=== PATIENT | female | born 1955 | race Caucasian/White ===

== ENCOUNTER 2018-03-05 20:28 | Inpatient (IN) | payer MEDICARE, MEDICAID ==
--- NOTE | 2018-03-05 20:56 | ED Physician Chart ---
ED Chief Complaint/HPI - Patient Information Date Seen:: 03/05/18 Time Seen:: 20:52 Chief Complaint:: agitation History of Present Illness:: 62 yr old female with psych disorder with agitation Allergies:: Allergies Allergy/AdvReac Type Severity Reaction Status Date / Time fluphenazine [From Prolixin] Allergy Verified 03/05/18 20:40 thioridazine [From Mellaril] Allergy Verified 03/05/18 20:40 trifluoperazine Allergy Verified 03/05/18 20:40 [From Stelazine] Vitals:: Vital Signs - 8 hr 03/05/18 20:30 Temp 97.8 F HR 76 RR 18 BP 156/91 O2 Sat % 97 ED Review of Systems - Review of Systems General/Constitutional: No fever, No chills, No weight loss, No weakness, No diaphoresis, No edema, No loss of appetite Skin: No skin lesions, No rash, No bruising Head: No headache, No light-headedness Eyes: No loss of vision, No pain, No diplopia ENT: No earache, No nasal drainage, No sore throat, No tinnitus Neck: No neck pain, No swelling, No thyromegaly, No stiffness, No mass noted Cardio Vascular: No chest pain, No palpitations, No PND, No orthopnea, No edema Pulmonary: No SOB, No cough, No sputum, No wheezing GI: No nausea, No vomiting, No diarrhea, No pain, No melena, No hematochezia, No constipation, No hematemesis G/U: No dysuria, No frequency, No hematuria Musculoskeletal: No bone or joint pain, No back pain, No muscle pain Endocrine: No polyuria, No polydipsia Psychiatric: No prior psych history, No depression, No anxiety, No suicidal ideation Hematopoietic: No bruising, No lymphadenopathy Allergic/Immuno: No urticaria, No angioedema Neurological: No syncope, No focal symptoms, No weakness, No paresthesia, No headache, No seizure, No dizziness, No confusion, No vertigo ED Past Medical History - Past Medical History Past Medical History: Other (psychosis) ED Physical Exam - Physical Examination General/Constitutional: Awake, Well-developed, well-nourished, Alert, No distress, GCS 15, Non-toxic appearing, Ambulatory Head: Atraumatic Eyes: Lids, conjuctiva normal, PERRL, EOMI Skin: Nl inspection, No rash, No skin lesions, No ecchymosis, Well hydrated, No lymphadenopathy ENMT: External ears, nose nl, Nasal exam nl, Lips, teeth, gums nl Neck: Nontender, Full ROM w/o pain, No JVD, No nuchal rigidity, No bruit, No mass, No stridor Respiratory: Nl effort/Exclusion, Clear to Auscultation, No Wheeze/Rhonchi/Rales Cardio Vascular: RRR, No murmur, gallop, rubs, NL S1 S2 GI: No tenderness/rebounding/guarding, No organomegaly, No hernia, Normal BS's, Nondistended, No mass/bruits, No McBurney tenderness : No CVA tenderness Extremities: No tenderness or effusion, Full ROM, normal strength in all extremities, No edema, Normal digits & nails Neuro/Psych: Alert/oriented, DTR's symmetric, Normal sensory exam, Normal motor strength, Judgement/insight normal, Mood normal, Normal gait, No focal deficits Misc: Normal back, No paraspinal tenderness ED Assessment - Assessment General Assessment: agitation ED Septic Shock - . Is Septic Shock (SBP<90, OR Lactate>4 mmol\L) present?: No - <6hrs of presentation: Vital Signs: Vital Signs - 8 hr 03/05/18 20:30 Temp 97.8 F HR 76 RR 18 BP 156/91 O2 Sat % 97 ED Reassessment (Disposition) - Reassessment Reassessment:: psychosis agitation Reassessment Condition:: Unchanged - Diagnosis Diagnosis:: as above - Patient Disposition Discharge/Transfer:: Acute Care w/in this hosp Condition at Disposition:: Stable
[2018-03-05 21:39] LABS: % LYMPHOCYTES 23.4 % (20.0-50.0); % MONOCYTES 8.7 % (2.0-10.0); % NEUTROPHILS 64.9 % (40.0-80.0); EOSINOPHILE ABSOLUTE 0.2 Th/cmm (0.1-0.4); HEMATOCRIT 39.9 % (41.0-60); HEMOGLOBIN 13.4 gm/dL (12-16); LYMPHOCYTE ABSOLUTE 1.8 Th/cmm (1.5-3.0); MEAN CORPUSCULAR HEMOGLOBIN 29.8 pg (27.0-31.0); MEAN CORPUSCULAR HGB CONC 33.5 pg (28.0-36.0); MEAN PLATELET VOLUME 7.2 fl; MONOCYTE ABSOLUTE 0.7 Th/cmm (0.3-1.0); NEUTROPHILE ABSOLUTE 4.9 Th/cmm (1.8-8.0); PLATELET COUNT 336 Th/cmm (150-400); RED BLOOD COUNT 4.49 Mil/cmm (3.80-5.10); RED CELL DISTRIBUTION WIDTH 13.2 % (11.5-20.0); WHITE BLOOD COUNT 7.6 Th/cmm (4.8-10.8)
[2018-03-05 22:01] LABS: ALB/GLOB RATIO 1.2 (1.0-1.8); ALBUMIN 3.9 gm/dL (3.7-5.3); ALKALINE PHOSPHATASE 71 U/L (34-104); ANION GAP 12.3 (7.0-16.0); BILIRUBIN,TOTAL 0.2 mg/dL (0.3-1.0); BUN - UREA NITROGEN 10 mg/dL (7-25); CALCIUM SERUM 9.7 mg/dL (8.6-10.3); CARBON DIOXIDE 27.7 mEq/L (21.0-31.0); CHLORIDE 104 mEq/L (98-107); CREATININE - SERUM 0.5 mg/dL (0.6-1.2); GFR AFRICAN-AMERICAN > 60.0 ml/min (>90); GFR NON AFRICAN-AMERICAN > 60.0 ml/min; GLUCOSE 151 mg/dL (70-105); SGOT 22 U/L (13-39); SGPT/ALT 32 U/L (7-52); SODIUM SERUM 140 mEq/L (136-145); TOTAL PROTEIN,SERUM 7.1 gm/dL (6.0-8.3)
[2018-03-06] MEDS ORDERED: Magnesium Hydroxide (MOM) 30 mL UDC PO PRN ×2 (00:04→18:05)
[2018-03-06 00:42] LABS: CHOLESTEROL 200 mg/dL (<200); HDL -HIGH DENSITY LIPOPROTEIN 43 mg/dL (23-92); TRIGLYCERIDES 220 mg/dL (<150)
[2018-03-06 01:19] VITALS: BP 135/68
[2018-03-06] MEDS: Multivitamin w/ Minerals Tab PO SCH (09:26)
--- NOTE | 2018-03-06 16:32 | History & Physical ---
ADMIT DATE: 03/05/2018 IDENTIFYING INFORMATION: The patient is a 62-year-old female. CHIEF COMPLAINT: The patient was rambling, poor historian. HISTORY OF PRESENT ILLNESS: The patient was admitted because of agitation. She was sent from [email or web address]. This is a well-known case to me as she used to be at [facility]. The patient was not making sense, talking about having a pair. When I asked where she is living now, she could not tell me, could not tell me the date, where she is, why she is here; however, she reports that she sleeps well and eats well, unable to tell date of . She believes she is 61 years of age and that she has been and that she has children. Does not know how many. Does not see them. She was talking nonstop. PAST PSYCHIATRIC HISTORY: She had multiple prior hospitalizations. ____ twice when she was in [place]. She was at [facility]. The patient insisted with aggressive and agitated behavior. MEDICATIONS: The patient has been on Depakote and olanzapine. MEDICAL HISTORY: THE PATIENT IS ALLERGIC TO FLUPHENAZINE, ____ and TRIFLUOPERAZINE. I will defer the rest to the medical doctor. FAMILY AND SOCIAL HISTORY: The patient reports that she is and that she has 4 kids, does not see them, does not know where they are. She did not know sure why she is in this place or why she does not see her children. She says she has a 10th grade education. She could not tell me what she did for living. No information regarding past psychotic disorder. Denies substance abuse. MENTAL STATUS EXAMINATION: The patient is appropriately dressed, not very groomed. She was talking. She was hyperverbal and very intrusive, kept talking to me and not make sense and is unable to answer questions appropriately. Unable to tell me her date of or the date of today, does not know where she is, why she is here. She denies any auditory or visual hallucinations. She denies any intent to harm herself or anybody; however, she is unpredictable and impulsive. Long-term memory is poor. She is not sure of her date of . Short-term memory is poor. Cannot tell me why she is here. Her insight and judgment about her illness is poor, does not realize she has a problem. Judgment is poor with her behavior. IMPRESSION: Schizoaffective disorder. MEDICAL DIAGNOSES: Per medical doctor. PLAN: The patient will continue on her medication olanzapine and Depakote. We will do group therapy, milieu therapy, and individual therapy. ESTIMATED LENGTH OF STAY: 3-7 days. DISCHARGE CRITERIA: Decreased psychosis, agitation. After discharge, outpatient. JOB# [id number]
--- NOTE | 2018-03-06 19:49 | History & Physical ---
ADMIT DATE: 03/05/2018 HISTORY OF PRESENT ILLNESS: The patient is a 62-year-old female with long history of dementia, psychosis, and degenerative joint disease; admitted to [facility] for treatment. The patient admitted under Dr. Ni's service. The patient denies any chest pain, shortness of breath, nausea, vomiting, fever, or chills. PAST MEDICAL HISTORY: Significant for dementia, psychosis, and degenerative joint disease. PAST SURGICAL HISTORY: No recent surgery. MEDICATIONS: Follow admission reconciliation. SOCIAL HISTORY: No smoking, no drugs, no alcohol. FAMILY HISTORY: Noncontributory. ALLERGIES: To FLUPHENAZINE, THIORIDAZINE, and TRIFLUOPERAZINE. REVIEW OF SYSTEMS: RENAL SYSTEM: No history of chronic renal disorder. CARDIOVASCULAR SYSTEM: No coronary artery disease. ENDOCRINE SYSTEM: No diabetes or thyroid problem. GASTROINTESTINAL SYSTEM: No upper or lower gastrointestinal bleed. NEUROLOGICAL SYSTEM: Seizure disorder. MUSCULOSKELETAL SYSTEM: No muscular dystrophy. HEMATOLOGIC: No bleeding tendencies. RESPIRATORY: No asthma. GENITOURINARY: No dysuria or hematuria. PHYSICAL EXAMINATION: GENERAL: She is awake, alert, not fully oriented, not in distress. VITAL SIGNS: Temperature 97.9, heart rate 68, and blood pressure 137/67. HEENT: Normocephalic. Pupils reactive to light and accommodation. Sclerae clear. NECK: Supple. Negative for lymphadenopathy, JVD, or bruit. CHEST: Entry of air bilateral normal. No rhonchi or wheezing. HEART: S1, S2 normal. No gallop rhythm. ABDOMEN: Soft, bowel sounds positive. EXTREMITIES: No edema. NEUROLOGIC: Awake, alert, mildly confused. No focal motor deficit. LABORATORY DATA: His white blood 7.6, hemoglobin 13.4, hematocrit 39.9, and platelets 336. Sodium 140, potassium 4.0, BUN 10, and creatinine 0.5. Triglycerides 220. ASSESSMENT: 1. Hyperlipidemia. 2. Degenerative joint disease. 3. Dementia. 4. Psychosis. PLAN: The patient admitted to the hospital under Dr. Ni's service. Medical problem addressed during this hospitalization is psychosis. Problems to be addressed at discharge, hyperlipidemia and degenerative joint disease. The patient is medically stable for activity. Thank you Dr. Ni for asking me to see your patient. JOB# [id number]
[2018-03-06] MEDS ORDERED: Non-Formulary Item 1 EA (Melatonin [Melatonin] 3 MG) PO SCH (21:00)
[2018-03-06 23:22] LABS: URINE SOURCE CLEAN C
[2018-03-06 23:25] LABS: URINE BILIRUBIN NEGATIVE (NEGATIVE); URINE BLOOD NEGATIVE (NEGATIVE); URINE GLUCOSE (UA) NEGATIVE (NEGATIVE); URINE KETONE NEGATIVE (NEGATIVE); URINE LEUKOCYTE ESTERASE NEGATIVE (NEGATIVE); URINE NITRATE NEGATIVE (NEGATIVE); URINE PROTEIN NEGATIVE (NEGATIVE); URINE UROBILINOGEN 0.2 E.U./dL (0.2 - 1.0)
[2018-03-07 00:13] LABS: URINE CLARITY CLEAR (CLEAR); URINE COLOR YELLOW
[2018-03-07 00:14] LABS: URINE MICROSCOPIC INDICATED? YES
[2018-03-07 00:15] LABS: URINE BACTERIA FEW /hpf (NONE SEEN); URINE EPITHELIAL CELLS FEW /lpf (FEW); URINE RBC NONE SEEN /hpf (0-5); URINE WBC 0-2 /hpf (0-5)
[2018-03-07 06:17] LABS: AMPHETAMINE URINE NEGATIVE (NEGATIVE); BARBITURATES URINE NEGATIVE (NEGATIVE); BENZODIAZEPINES QUAL URINE NEGATIVE (NEGATIVE); CANNABINOID THC NEGATIVE (NEGATIVE); COCAINE METABOLITE QUAL URINE NEGATIVE (NEGATIVE); METHADONE URINE NEGATIVE (NEGATIVE); METHAMPHETAMINES QUAL URINE NEGATIVE (NEGATIVE); OPIATES (MORPHINE) QUAL. URINE NEGATIVE (NEGATIVE); PHENCYCLIDINE (PCP) URINE NEGATIVE (NEGATIVE); TRICYCLICS (TCA) QUAL. URINE NEGATIVE (NEGATIVE)
[2018-03-07] MEDS: Multivitamin w/ Minerals Tab PO SCH (08:58)
--- NOTE | 2018-03-07 21:25 | Progress Notes ---
DATE: 03/07/2018 Case was discussed with staff of the patient, reviewed records. The patient continues to be agitated, hyperverbal, intrusive, and needing redirection. She wants me today to be her payee, talking nonstop. Continues to be unpredictable, impulsive, needing redirection. Continues to have poor insight, does not know where she came from and why she is here. She is compliant with the medication with no side effects, no sedation, no nausea, and no extrapyramidal symptoms. She was initiated back on her medication yesterday, with no side effects. We will continue the patient in group therapy, milieu therapy, and adjust medication as needed. JOB# [id number]
--- NOTE | 2018-03-07 22:54 | Internal Medicine Prog Note ---
Internal Medicine Subjective - Subjective Service Date: 03/07/18 Patient seen and examined:: with staff Patient is:: awake, verbal, in bed, talking Per staff patient has:: no adverse event Internal Medicine Objective - Results Result Diagrams: 03/05/18 21:30 03/05/18 21:30 Recent Labs: Laboratory Last Values WBC 7.6 Th/cmm (4.8-10.8) 03/05/18 21:30 RBC 4.49 Mil/cmm (3.80-5.10) 03/05/18 21:30 Hgb 13.4 gm/dL (12-16) 03/05/18 21:30 Hct 39.9 % (41.0-60) L 03/05/18 21: MCV 89.0 fl (81-100) 03/05/18 21:30 MCH 29.8 pg (27.0-31.0) 03/05/18: MCHC Differential 33.5 pg (28.0-36.0) 03/05/18 21:30 RDW 13.2 % (11.5-20.0) 03/05/18 21:30 Plt Count 336 Th/cmm (150-400) 03/05/18 21:30 MPV 7.2 fl 03/05/18 21:30 Neutrophils % 64.9 % (40.0-80.0) 03/05/18 21:30 Lymphocytes % 23.4 % (20.0-50.0) 03/05/18 21: Monocytes % 8.7 % (2.0-10.0) 03/05/18 21: Eosinophils % 3.0 % (0.0-5.0) 03/05/18 21: Basophils % 0.0 % (0.0-2.0) 03/05/18 21:30 Sodium 140 mEq/L (136-145) 03/05/18 21:30 Potassium 4.0 mEq/L (3.5-5.1) 03/05/18 21:30 Chloride 104 mEq/L (98-107) 03/05/18 21:30 Carbon Dioxide 27.7 mEq/L (21.0-31.0) 03/05/18 21:30 Anion Gap 12.3 (7.0-16.0) 03/05/18 21:30 BUN 10 mg/dL (7-25) 03/05/18 21:30 Creatinine 0.5 mg/dL (0.6-1.2) L 03/05/18 21:30 Est GFR ( Amer) > 60.0 ml/min (>90) 03/05/18 21:30 Est GFR (Non-Af Amer) > 60.0 ml/min 03/05/18 21:30 BUN/Creatinine Ratio 20.0 03/05/18 21:30 Glucose 151 mg/dL (70-105) H 03/05/18 21:30 Calcium 9.7 mg/dL (8.6-10.3) 03/05/18 21:30 Total Bilirubin 0.2 mg/dL (0.3-1.0) L 03/05/18 21:30 AST 22 U/L (13-39) 03/05/18 21:30 ALT 32 U/L (7-52) 03/05/18 21:30 Alkaline Phosphatase 71 U/L (34-104) 03/05/18 21:30 Total Protein 7.1 gm/dL (6.0-8.3) 03/05/18 21:30 Albumin 3.9 gm/dL (3.7-5.3) 03/05/18 21:30 Globulin 3.2 gm/dL 03/05/18 21:30 Albumin/Globulin Ratio 1.2 (1.0-1.8) 03/05/18 21:30 Triglycerides 220 mg/dL (<150) H 03/06/18 00:00 Cholesterol 200 mg/dL (<200) 03/06/18 00:00 LDL Cholesterol Direct 141 mg/dL (75-193) 03/06/18 00:00 HDL Cholesterol 43 mg/dL (23-92) 03/06/18 00:00 Urine Source CLEAN C 03/06/18 23:15 Urine Color YELLOW 03/06/18 23:15 Urine Clarity CLEAR (CLEAR) 03/06/18 23:15 Urine pH 7.0 (4.6 - 8.0) 03/06/18 23:15 Ur Specific [place] 1.010 (1.005-1.030) 03/06/18 23:15 Urine Protein NEGATIVE mg/dL (NEGATIVE) 03/06/18 23:15 Urine Glucose (UA) NEGATIVE mg/dL (NEGATIVE) 03/06/18 23:15 Urine Ketones NEGATIVE mg/dL (NEGATIVE) 03/06/18 23:15 Urine Blood NEGATIVE (NEGATIVE) 03/06/18 23:15 Urine Nitrate NEGATIVE (NEGATIVE) 03/06/18 23:15 Urine Bilirubin NEGATIVE (NEGATIVE) 03/06/18 23:15 Urine Urobilinogen 0.2 E.U./dL (0.2 - 1.0) 03/06/18 23:15 Ur Leukocyte Esterase NEGATIVE (NEGATIVE) 03/06/18 23:15 Urine RBC NONE SEEN /hpf (0-5) 03/06/18 23:15 Urine WBC 0-2 /hpf (0-5) 03/06/18 23:15 Ur Epithelial Cells FEW /lpf (FEW) 03/06/18 23:15 Urine Bacteria FEW /hpf (NONE SEEN) 03/06/18 23:15 Urine Opiates Screen NEGATIVE (NEGATIVE) 03/06/18 23:15 Urine Methadone Screen NEGATIVE (NEGATIVE) 03/06/18 23:15 Ur Barbiturates Screen NEGATIVE (NEGATIVE) 03/06/18 23:15 Ur Tricyclics Screen NEGATIVE (NEGATIVE) 03/06/18 23:15 Ur Phencyclidine Scrn NEGATIVE (NEGATIVE) 03/06/18 23:15 Amphetamines Screen NEGATIVE (NEGATIVE) 03/06/18 23:15 U Methamphetamines Scrn NEGATIVE (NEGATIVE) 03/06/18 23:15 U Benzodiazepines Scrn NEGATIVE (NEGATIVE) 03/06/18 23:15 U Cocaine Metab Screen NEGATIVE (NEGATIVE) 03/06/18 23:15 U Cannabinoids Screen NEGATIVE (NEGATIVE) 03/06/18 23:15 - Physical Exam Vitals and I&O: Vital Signs Temp 97.1 F 03/07/18 20:31 Pulse 82 03/07/18 20:31 Resp 20 03/07/18 20:31 BP 133/68 03/07/18 20:31 Pulse Ox 96 03/07/18 20:31 Intake & Output 03/07/18 03/07/18 03/08/18 06:59 18:59 06:59 Intake Total 120 180 Balance 120 180 Intake: Oral 120 180 Other: # Voids 3 2 # Bowel Movements 2 0 Active Medications: Current Medications Acetaminophen (Tylenol) 650 mg PO Q4HR PRN PRN Reason: Mild Pain / Temp above 100 Stop: 05/05/18 00:03 Acetaminophen (Tylenol) 650 mg PO Q4HR PRN PRN Reason: Pain or Fever >101 Stop: 05/05/18 18:04 Divalproex Sodium (Depakote Dr) 250 mg PO BID [facility]; Protocol Stop: 05/05/18 08:59 Last Admin: 03/07/18 17:08 Dose: 250 mg Docusate Sodium (Colace) 250 mg PO DAILY KATINA Stop: 05/05/18 08:59 Last Admin: 03/07/18 08:57 Dose: 250 mg Lorazepam (Ativan) 0.5 mg PO Q6HR PRN; Protocol PRN Reason: Anxiety Stop: 04/04/18 23:29 Magnesium Hydroxide (Milk Of Magnesia) 30 ml PO HS PRN PRN Reason: Constipation Magnesium Hydroxide (Milk Of Magnesia) 30 ml PO HS PRN PRN Reason: Constipation Stop: 05/05/18 18:04 Miscellaneous (Melatonin [Melatonin]) 3 mg PO HS KATINA Stop: 05/05/18 20:59 Olanzapine (Zyprexa) 5 mg PO BID [facility]; Protocol Stop: 05/05/18 08:59 Last Admin: 03/07/18 17:08 Dose: 5 mg Zolpidem Tartrate (Ambien) 5 mg PO HS PRN PRN Reason: Insomnia Stop: 05/05/18 00:03 General: demented HEENT: NC/AT, PERRLA, EOMI, anicteric sclerae, throat clear Neck: Supple, No JVD, No thyromegaly, +2 carotid pulse wo bruit, No LAD Lungs: CTAB Cardiovascular: RRR, Normal S1, Normal S2, without murmur Abdomen: soft, non-tender, non-distended Extremities: clear Neurological: no change Internal Medicine Assmt/Plan - Assessment Assessment: 1.HYPERLIPIDEMIA. 2.DJD. 3.DEMENTIA. 4.PSYCHOSIS. - Plan Plan: CONTINUE ON CURRENT MEDICATION AND DIET.
[2018-03-08] MEDS: Multivitamin w/ Minerals Tab PO SCH (08:30)
--- NOTE | 2018-03-08 18:28 | Internal Medicine Prog Note ---
Internal Medicine Subjective - Subjective Service Date: 03/08/18 Patient seen and examined:: with staff Patient is:: awake, verbal, in bed, talking Per staff patient has:: no adverse event Internal Medicine Objective - Results Result Diagrams: 03/05/18 21:30 03/05/18 21:30 Recent Labs: Laboratory Last Values WBC 7.6 Th/cmm (4.8-10.8) 03/05/18 21:30 RBC 4.49 Mil/cmm (3.80-5.10) 03/05/18 21:30 Hgb 13.4 gm/dL (12-16) 03/05/18 21:30 Hct 39.9 % (41.0-60) L 03/05/18 21: MCV 89.0 fl (81-100) 03/05/18 21:30 MCH 29.8 pg (27.0-31.0) 03/05/18: MCHC Differential 33.5 pg (28.0-36.0) 03/05/18 21:30 RDW 13.2 % (11.5-20.0) 03/05/18 21:30 Plt Count 336 Th/cmm (150-400) 03/05/18 21:30 MPV 7.2 fl 03/05/18 21:30 Neutrophils % 64.9 % (40.0-80.0) 03/05/18 21:30 Lymphocytes % 23.4 % (20.0-50.0) 03/05/18 21: Monocytes % 8.7 % (2.0-10.0) 03/05/18 21: Eosinophils % 3.0 % (0.0-5.0) 03/05/18 21: Basophils % 0.0 % (0.0-2.0) 03/05/18 21:30 Sodium 140 mEq/L (136-145) 03/05/18 21:30 Potassium 4.0 mEq/L (3.5-5.1) 03/05/18 21:30 Chloride 104 mEq/L (98-107) 03/05/18 21:30 Carbon Dioxide 27.7 mEq/L (21.0-31.0) 03/05/18 21: Anion Gap 12.3 (7.0-16.0) 03/05/18 21:30 BUN 10 mg/dL (7-25) 03/05/18 21:30 Creatinine 0.5 mg/dL (0.6-1.2) L 03/05/18 21:30 Est GFR ( Amer) > 60.0 ml/min (>90) 03/05/18 21:30 Est GFR (Non-Af Amer) > 60.0 ml/min 03/05/18 21:30 BUN/Creatinine Ratio 20.0 03/05/18 21:30 Glucose 151 mg/dL (70-105) H 03/05/18 21:30 Calcium 9.7 mg/dL (8.6-10.3) 03/05/18 21:30 Total Bilirubin 0.2 mg/dL (0.3-1.0) L 03/05/18 21:30 AST 22 U/L (13-39) 03/05/18 21:30 ALT 32 U/L (7-52) 03/05/18 21:30 Alkaline Phosphatase 71 U/L (34-104) 03/05/18 21:30 Total Protein 7.1 gm/dL (6.0-8.3) 03/05/18 21:30 Albumin 3.9 gm/dL (3.7-5.3) 03/05/18 21:30 Globulin 3.2 gm/dL 03/05/18 21:30 Albumin/Globulin Ratio 1.2 (1.0-1.8) 03/05/18 21:30 Triglycerides 220 mg/dL (<150) H 03/06/18 00:00 Cholesterol 200 mg/dL (<200) 03/06/18 00:00 LDL Cholesterol Direct 141 mg/dL (75-193) 03/06/18 00:00 HDL Cholesterol 43 mg/dL (23-92) 03/06/18 00:00 Urine Source CLEAN C 03/06/18 23:15 Urine Color YELLOW 03/06/18 23:15 Urine Clarity CLEAR (CLEAR) 03/06/18 23:15 Urine pH 7.0 (4.6 - 8.0) 03/06/18 23:15 Ur Specific [place] 1.010 (1.005-1.030) 03/06/18 23:15 Urine Protein NEGATIVE mg/dL (NEGATIVE) 03/06/18 23:15 Urine Glucose (UA) NEGATIVE mg/dL (NEGATIVE) 03/06/18 23:15 Urine Ketones NEGATIVE mg/dL (NEGATIVE) 03/06/18 23:15 Urine Blood NEGATIVE (NEGATIVE) 03/06/18 23:15 Urine Nitrate NEGATIVE (NEGATIVE) 03/06/18 23:15 Urine Bilirubin NEGATIVE (NEGATIVE) 03/06/18 23:15 Urine Urobilinogen 0.2 E.U./dL (0.2 - 1.0) 03/06/18 23:15 Ur Leukocyte Esterase NEGATIVE (NEGATIVE) 03/06/18 23:15 Urine RBC NONE SEEN /hpf (0-5) 03/06/18 23:15 Urine WBC 0-2 /hpf (0-5) 03/06/18 23:15 Ur Epithelial Cells FEW /lpf (FEW) 03/06/18 23:15 Urine Bacteria FEW /hpf (NONE SEEN) 03/06/18 23:15 Urine Opiates Screen NEGATIVE (NEGATIVE) 03/06/18 23:15 Urine Methadone Screen NEGATIVE (NEGATIVE) 03/06/18 23:15 Ur Barbiturates Screen NEGATIVE (NEGATIVE) 03/06/18 23:15 Valproic Acid 35.7 ug/mL (50.0-100.0) L 03/08/18 07:45 Ur Tricyclics Screen NEGATIVE (NEGATIVE) 03/06/18 23:15 Ur Phencyclidine Scrn NEGATIVE (NEGATIVE) 03/06/18 23:15 Amphetamines Screen NEGATIVE (NEGATIVE) 03/06/18 23:15 U Methamphetamines Scrn NEGATIVE (NEGATIVE) 03/06/18 23:15 U Benzodiazepines Scrn NEGATIVE (NEGATIVE) 03/06/18 23:15 U Cocaine Metab Screen NEGATIVE (NEGATIVE) 03/06/18 23:15 U Cannabinoids Screen NEGATIVE (NEGATIVE) 03/06/18 23:15 - Physical Exam Vitals and I&O: Vital Signs Temp 97.9 F 03/08/18 14:00 Pulse 77 03/08/18 14:00 Resp 20 03/08/18 14:00 BP 109/48 03/08/18 14:00 Pulse Ox 98 03/08/18 14:00 Intake & Output 03/07/18 03/08/18 03/08/18 18:59 06:59 18:59 Intake Total 300 800 Balance 300 800 Intake: Oral 300 800 Other: # Voids 3 3 # Bowel Movements 2 0 1 Active Medications: Current Medications Acetaminophen (Tylenol) 650 mg PO Q4HR PRN PRN Reason: Mild Pain / Temp above 100 Stop: 05/05/18 00:03 Acetaminophen (Tylenol) 650 mg PO Q4HR PRN PRN Reason: Pain or Fever >101 Stop: 05/05/18 18:04 Divalproex Sodium (Depakote Dr) 250 mg PO BID [facility]; Protocol Stop: 05/05/18 08:59 Last Admin: 03/08/18 17:12 Dose: 250 mg Docusate Sodium (Colace) 250 mg PO DAILY KATINA Stop: 05/05/18 08:59 Last Admin: 03/08/18 08:29 Dose: 250 mg Lorazepam (Ativan) 0.5 mg PO Q6HR PRN; Protocol PRN Reason: Anxiety Stop: 04/04/18 23:29 Magnesium Hydroxide (Milk Of Magnesia) 30 ml PO HS PRN PRN Reason: Constipation Magnesium Hydroxide (Milk Of Magnesia) 30 ml PO HS PRN PRN Reason: Constipation Stop: 05/05/18 18:04 Olanzapine (Zyprexa) 5 mg PO BID [facility]; Protocol Stop: 05/05/18 08:59 Last Admin: 03/08/18 17:12 Dose: 5 mg Zolpidem Tartrate (Ambien) 5 mg PO HS PRN PRN Reason: Insomnia Stop: 05/05/18 00:03 General: demented HEENT: NC/AT, PERRLA, EOMI, anicteric sclerae, throat clear Neck: Supple, No JVD, No thyromegaly, +2 carotid pulse wo bruit, No LAD Lungs: CTAB Cardiovascular: RRR, Normal S1, Normal S2, without murmur Abdomen: soft, non-tender, non-distended Extremities: clear Neurological: no change Internal Medicine Assmt/Plan - Assessment Assessment: 1.HYPERLIPIDEMIA. 2.DJD. 3.DEMENTIA. 4.PSYCHOSIS. - Plan Plan: CONTINUE ON CURRENT MEDICATION AND DIET.
[2018-03-09] MEDS: Multivitamin w/ Minerals Tab PO SCH (09:40)
--- NOTE | 2018-03-09 12:57 | Internal Medicine Prog Note ---
Internal Medicine Subjective - Subjective Service Date: 03/09/18 Patient seen and examined:: with staff Patient is:: awake, verbal, in bed, talking Per staff patient has:: no adverse event Internal Medicine Objective - Results Result Diagrams: 03/05/18 21:30 03/05/18 21:30 Recent Labs: Laboratory Last Values WBC 7.6 Th/cmm (4.8-10.8) 03/05/18 21:30 RBC 4.49 Mil/cmm (3.80-5.10) 03/05/18 21:30 Hgb 13.4 gm/dL (12-16) 03/05/18 21:30 Hct 39.9 % (41.0-60) L 03/05/18 21: MCV 89.0 fl (81-100) 03/05/18 21:30 MCH 29.8 pg (27.0-31.0) 03/05/18: MCHC Differential 33.5 pg (28.0-36.0) 03/05/18 21:30 RDW 13.2 % (11.5-20.0) 03/05/18 21:30 Plt Count 336 Th/cmm (150-400) 03/05/18 21:30 MPV 7.2 fl 03/05/18 21:30 Neutrophils % 64.9 % (40.0-80.0) 03/05/18 21:30 Lymphocytes % 23.4 % (20.0-50.0) 03/05/18 21: Monocytes % 8.7 % (2.0-10.0) 03/05/18 21: Eosinophils % 3.0 % (0.0-5.0) 03/05/18 21: Basophils % 0.0 % (0.0-2.0) 03/05/18 21:30 Sodium 140 mEq/L (136-145) 03/05/18 21:30 Potassium 4.0 mEq/L (3.5-5.1) 03/05/18 21:30 Chloride 104 mEq/L (98-107) 03/05/18 21:30 Carbon Dioxide 27.7 mEq/L (21.0-31.0) 03/05/18 21: Anion Gap 12.3 (7.0-16.0) 03/05/18 21:30 BUN 10 mg/dL (7-25) 03/05/18 21:30 Creatinine 0.5 mg/dL (0.6-1.2) L 03/05/18 21:30 Est GFR ( Amer) > 60.0 ml/min (>90) 03/05/18 21:30 Est GFR (Non-Af Amer) > 60.0 ml/min 03/05/18 21:30 BUN/Creatinine Ratio 20.0 03/05/18 21:30 Glucose 151 mg/dL (70-105) H 03/05/18 21:30 Calcium 9.7 mg/dL (8.6-10.3) 03/05/18 21:30 Total Bilirubin 0.2 mg/dL (0.3-1.0) L 03/05/18 21:30 AST 22 U/L (13-39) 03/05/18 21:30 ALT 32 U/L (7-52) 03/05/18 21:30 Alkaline Phosphatase 71 U/L (34-104) 03/05/18 21:30 Total Protein 7.1 gm/dL (6.0-8.3) 03/05/18 21:30 Albumin 3.9 gm/dL (3.7-5.3) 03/05/18 21:30 Globulin 3.2 gm/dL 03/05/18 21:30 Albumin/Globulin Ratio 1.2 (1.0-1.8) 03/05/18 21:30 Triglycerides 220 mg/dL (<150) H 03/06/18 00:00 Cholesterol 200 mg/dL (<200) 03/06/18 00:00 LDL Cholesterol Direct 141 mg/dL (75-193) 03/06/18 00:00 HDL Cholesterol 43 mg/dL (23-92) 03/06/18 00:00 Urine Source CLEAN C 03/06/18 23:15 Urine Color YELLOW 03/06/18 23:15 Urine Clarity CLEAR (CLEAR) 03/06/18 23:15 Urine pH 7.0 (4.6 - 8.0) 03/06/18 23:15 Ur Specific [place] 1.010 (1.005-1.030) 03/06/18 23:15 Urine Protein NEGATIVE mg/dL (NEGATIVE) 03/06/18 23:15 Urine Glucose (UA) NEGATIVE mg/dL (NEGATIVE) 03/06/18 23:15 Urine Ketones NEGATIVE mg/dL (NEGATIVE) 03/06/18 23:15 Urine Blood NEGATIVE (NEGATIVE) 03/06/18 23:15 Urine Nitrate NEGATIVE (NEGATIVE) 03/06/18 23:15 Urine Bilirubin NEGATIVE (NEGATIVE) 03/06/18 23:15 Urine Urobilinogen 0.2 E.U./dL (0.2 - 1.0) 03/06/18 23:15 Ur Leukocyte Esterase NEGATIVE (NEGATIVE) 03/06/18 23:15 Urine RBC NONE SEEN /hpf (0-5) 03/06/18 23:15 Urine WBC 0-2 /hpf (0-5) 03/06/18 23:15 Ur Epithelial Cells FEW /lpf (FEW) 03/06/18 23:15 Urine Bacteria FEW /hpf (NONE SEEN) 03/06/18 23:15 Urine Opiates Screen NEGATIVE (NEGATIVE) 03/06/18 23:15 Urine Methadone Screen NEGATIVE (NEGATIVE) 03/06/18 23:15 Ur Barbiturates Screen NEGATIVE (NEGATIVE) 03/06/18 23:15 Valproic Acid 35.7 ug/mL (50.0-100.0) L 03/08/18 07:45 Ur Tricyclics Screen NEGATIVE (NEGATIVE) 03/06/18 23:15 Ur Phencyclidine Scrn NEGATIVE (NEGATIVE) 03/06/18 23:15 Amphetamines Screen NEGATIVE (NEGATIVE) 03/06/18 23:15 U Methamphetamines Scrn NEGATIVE (NEGATIVE) 03/06/18 23:15 U Benzodiazepines Scrn NEGATIVE (NEGATIVE) 03/06/18 23:15 U Cocaine Metab Screen NEGATIVE (NEGATIVE) 03/06/18 23:15 U Cannabinoids Screen NEGATIVE (NEGATIVE) 03/06/18 23:15 - Physical Exam Vitals and I&O: Vital Signs Temp 97.8 F 03/09/18 06:41 Pulse 75 03/09/18 06:41 Resp 20 03/09/18 06:41 BP 147/71 03/09/18 06:41 Pulse Ox 95 03/09/18 06:41 Intake & Output 03/08/18 03/09/18 03/09/18 18:59 06:59 18:59 Intake Total 800 240 Balance 800 240 Intake: Oral 800 240 Other: # Voids 3 1 # Bowel Movements 1 Active Medications: Current Medications Acetaminophen (Tylenol) 650 mg PO Q4HR PRN PRN Reason: Mild Pain / Temp above 100 Stop: 05/05/18 00:03 Acetaminophen (Tylenol) 650 mg PO Q4HR PRN PRN Reason: Pain or Fever >101 Stop: 05/05/18 18:04 Divalproex Sodium (Depakote Dr) 250 mg PO TID [facility]; Protocol Stop: 05/08/18 13:59 Docusate Sodium (Colace) 250 mg PO DAILY KATINA Stop: 05/05/18 08:59 Last Admin: 03/09/18 09:40 Dose: 250 mg Lorazepam (Ativan) 0.5 mg PO Q6HR PRN; Protocol PRN Reason: Anxiety Stop: 04/04/18 23:29 Magnesium Hydroxide (Milk Of Magnesia) 30 ml PO HS PRN PRN Reason: Constipation Magnesium Hydroxide (Milk Of Magnesia) 30 ml PO HS PRN PRN Reason: Constipation Stop: 05/05/18 18:04 Olanzapine (Zyprexa) 5 mg PO BID [facility]; Protocol Stop: 05/05/18 08:59 Last Admin: 03/09/18 09:40 Dose: 5 mg Zolpidem Tartrate (Ambien) 5 mg PO HS PRN PRN Reason: Insomnia Stop: 05/05/18 00:03 General: demented HEENT: NC/AT, PERRLA, EOMI, anicteric sclerae, throat clear Neck: Supple, No JVD, No thyromegaly, +2 carotid pulse wo bruit, No LAD Lungs: CTAB Cardiovascular: RRR, Normal S1, Normal S2, without murmur Abdomen: soft, non-tender, non-distended Extremities: clear Neurological: no change Internal Medicine Assmt/Plan - Assessment Assessment: 1.HYPERLIPIDEMIA. 2.DJD. 3.DEMENTIA. 4.PSYCHOSIS. - Plan Plan: CONTINUE ON CURRENT MEDICATION AND DIET.
--- NOTE | 2018-03-09 22:28 | Progress Notes ---
DATE: 03/08/2018 SUBJECTIVE: Chart reviewed and the patient interviewed. Also discussed the patient's condition with the staff and reviewed the records and labs. The patient is still confused and she is oriented to self only. The patient also is still easily agitated. She is also actively hallucinating and observed talking to herself. The patient also still needs lots of redirections, but she gets easily agitated when staff tries to redirect her and she still is acting unpredictable behavior. On the other hand, the patient is compliant with taking her medications. ASSESSMENT: The patient is still agitated and is still psychotic. TREATMENT PLAN: Continue to monitor her behavior and condition closely. Also, continue Depakote in a dose of 250 mg twice a day as well as Zyprexa in a dose of 5 mg daily. She also will work on placement issue if needed as well as discharge plans. JOB# [id number]
--- NOTE | 2018-03-09 23:52 | Progress Notes ---
DATE: 03/09/2018 Case was discussed with staff of the patient and reviewed records. The patient continues to be very intrusive, continues to be restless, continues to be unable to make safe plan for her self-care, unpredictable and impulsive, needing redirection. I will be increasing her Depakote to 3 a day to help with her hypomanic symptoms. No side effects of the medication, no sedation, nausea, no extrapyramidal symptoms. We will continue outpatient group therapy, milieu therapy, and adjust the medication as needed. JOB# [id number]
[2018-03-10] MEDS: Multivitamin w/ Minerals Tab PO SCH (09:20)
--- NOTE | 2018-03-10 10:16 | Internal Medicine Prog Note ---
Internal Medicine Subjective - Subjective Service Date: 03/10/18 Patient seen and examined:: with staff Patient is:: awake, verbal, in bed, talking Per staff patient has:: no adverse event Internal Medicine Objective - Results Result Diagrams: 03/05/18 21:30 03/05/18 21:30 Recent Labs: Laboratory Last Values WBC 7.6 Th/cmm (4.8-10.8) 03/05/18 21:30 RBC 4.49 Mil/cmm (3.80-5.10) 03/05/18 21:30 Hgb 13.4 gm/dL (12-16) 03/05/18 21:30 Hct 39.9 % (41.0-60) L 03/05/18 21: MCV 89.0 fl (81-100) 03/05/18 21:30 MCH 29.8 pg (27.0-31.0) 03/05/18: MCHC Differential 33.5 pg (28.0-36.0) 03/05/18 21:30 RDW 13.2 % (11.5-20.0) 03/05/18 21:30 Plt Count 336 Th/cmm (150-400) 03/05/18 21:30 MPV 7.2 fl 03/05/18 21:30 Neutrophils % 64.9 % (40.0-80.0) 03/05/18 21:30 Lymphocytes % 23.4 % (20.0-50.0) 03/05/18 21: Monocytes % 8.7 % (2.0-10.0) 03/05/18 21: Eosinophils % 3.0 % (0.0-5.0) 03/05/18 21: Basophils % 0.0 % (0.0-2.0) 03/05/18 21:30 Sodium 140 mEq/L (136-145) 03/05/18 21:30 Potassium 4.0 mEq/L (3.5-5.1) 03/05/18 21:30 Chloride 104 mEq/L (98-107) 03/05/18 21:30 Carbon Dioxide 27.7 mEq/L (21.0-31.0) 03/05/18 21:30 Anion Gap 12.3 (7.0-16.0) 03/05/18 21:30 BUN 10 mg/dL (7-25) 03/05/18 21:30 Creatinine 0.5 mg/dL (0.6-1.2) L 03/05/18 21:30 Est GFR ( Amer) > 60.0 ml/min (>90) 03/05/18 21:30 Est GFR (Non-Af Amer) > 60.0 ml/min 03/05/18 21:30 BUN/Creatinine Ratio 20.0 03/05/18 21:30 Glucose 151 mg/dL (70-105) H 03/05/18 21:30 Calcium 9.7 mg/dL (8.6-10.3) 03/05/18 21:30 Total Bilirubin 0.2 mg/dL (0.3-1.0) L 03/05/18 21:30 AST 22 U/L (13-39) 03/05/18 21:30 ALT 32 U/L (7-52) 03/05/18 21:30 Alkaline Phosphatase 71 U/L (34-104) 03/05/18 21:30 Total Protein 7.1 gm/dL (6.0-8.3) 03/05/18 21:30 Albumin 3.9 gm/dL (3.7-5.3) 03/05/18 21:30 Globulin 3.2 gm/dL 03/05/18 21:30 Albumin/Globulin Ratio 1.2 (1.0-1.8) 03/05/18 21:30 Triglycerides 220 mg/dL (<150) H 03/06/18 00:00 Cholesterol 200 mg/dL (<200) 03/06/18 00:00 LDL Cholesterol Direct 141 mg/dL (75-193) 03/06/18 00:00 HDL Cholesterol 43 mg/dL (23-92) 03/06/18 00:00 Urine Source CLEAN C 03/06/18 23:15 Urine Color YELLOW 03/06/18 23:15 Urine Clarity CLEAR (CLEAR) 03/06/18 23:15 Urine pH 7.0 (4.6 - 8.0) 03/06/18 23:15 Ur Specific [place] 1.010 (1.005-1.030) 03/06/18 23:15 Urine Protein NEGATIVE mg/dL (NEGATIVE) 03/06/18 23:15 Urine Glucose (UA) NEGATIVE mg/dL (NEGATIVE) 03/06/18 23:15 Urine Ketones NEGATIVE mg/dL (NEGATIVE) 03/06/18 23:15 Urine Blood NEGATIVE (NEGATIVE) 03/06/18 23:15 Urine Nitrate NEGATIVE (NEGATIVE) 03/06/18 23:15 Urine Bilirubin NEGATIVE (NEGATIVE) 03/06/18 23:15 Urine Urobilinogen 0.2 E.U./dL (0.2 - 1.0) 03/06/18 23:15 Ur Leukocyte Esterase NEGATIVE (NEGATIVE) 03/06/18 23:15 Urine RBC NONE SEEN /hpf (0-5) 03/06/18 23:15 Urine WBC 0-2 /hpf (0-5) 03/06/18 23:15 Ur Epithelial Cells FEW /lpf (FEW) 03/06/18 23:15 Urine Bacteria FEW /hpf (NONE SEEN) 03/06/18 23:15 Urine Opiates Screen NEGATIVE (NEGATIVE) 03/06/18 23:15 Urine Methadone Screen NEGATIVE (NEGATIVE) 03/06/18 23:15 Ur Barbiturates Screen NEGATIVE (NEGATIVE) 03/06/18 23:15 Valproic Acid 35.7 ug/mL (50.0-100.0) L 03/08/18 07:45 Ur Tricyclics Screen NEGATIVE (NEGATIVE) 03/06/18 23:15 Ur Phencyclidine Scrn NEGATIVE (NEGATIVE) 03/06/18 23:15 Amphetamines Screen NEGATIVE (NEGATIVE) 03/06/18 23:15 U Methamphetamines Scrn NEGATIVE (NEGATIVE) 03/06/18 23:15 U Benzodiazepines Scrn NEGATIVE (NEGATIVE) 03/06/18 23:15 U Cocaine Metab Screen NEGATIVE (NEGATIVE) 03/06/18 23:15 U Cannabinoids Screen NEGATIVE (NEGATIVE) 03/06/18 23:15 - Physical Exam Vitals and I&O: Vital Signs Temp 97.3 F 03/10/18 06:32 Pulse 78 03/10/18 06:32 Resp 20 03/10/18 06:32 BP 159/99 03/10/18 06:32 Pulse Ox 96 03/10/18 06:32 Intake & Output 03/09/18 03/10/18 03/10/18 18:59 06:59 18:59 Intake Total 900 240 Balance 900 240 Intake: Oral 900 240 Other: # Voids 3 3 # Bowel Movements 1 0 Active Medications: Current Medications Acetaminophen (Tylenol) 650 mg PO Q4HR PRN PRN Reason: Mild Pain / Temp above 100 Stop: 05/05/18 00:03 Acetaminophen (Tylenol) 650 mg PO Q4HR PRN PRN Reason: Pain or Fever >101 Stop: 05/05/18 18:04 Divalproex Sodium (Depakote Dr) 500 mg PO BID [facility]; Protocol Stop: 05/09/18 08:59 Last Admin: 03/10/18 09:20 Dose: 500 mg Docusate Sodium (Colace) 250 mg PO DAILY KATINA Stop: 05/05/18 08:59 Last Admin: 03/10/18 09:20 Dose: Not Given Lorazepam (Ativan) 0.5 mg PO Q6HR PRN; Protocol PRN Reason: Anxiety Stop: 04/04/18 23:29 Magnesium Hydroxide (Milk Of Magnesia) 30 ml PO HS PRN PRN Reason: Constipation Magnesium Hydroxide (Milk Of Magnesia) 30 ml PO HS PRN PRN Reason: Constipation Stop: 05/05/18 18:04 Olanzapine (Zyprexa) 5 mg PO BID [facility]; Protocol Stop: 05/05/18 08:59 Last Admin: 03/10/18 09:20 Dose: 5 mg Zolpidem Tartrate (Ambien) 5 mg PO HS PRN PRN Reason: Insomnia Stop: 05/05/18 00:03 General: demented HEENT: NC/AT, PERRLA, EOMI, anicteric sclerae, throat clear Neck: Supple, No JVD, No thyromegaly, +2 carotid pulse wo bruit, No LAD Lungs: CTAB Cardiovascular: RRR, Normal S1, Normal S2, without murmur Abdomen: soft, non-tender, non-distended Extremities: clear Neurological: no change Internal Medicine Assmt/Plan - Assessment Assessment: 1.HYPERLIPIDEMIA. 2.DJD. 3.DEMENTIA. 4.PSYCHOSIS. - Plan Plan: CONTINUE ON CURRENT MEDICATION AND DIET.
--- NOTE | 2018-03-10 22:49 | Progress Notes ---
DATE: SUBJECTIVE: Chart reviewed and the patient interviewed. Also discussed the patient's condition with the staff and reviewed the records and labs. The patient continued to be in a confused state and "I live here" as the answer to my question about where does she live. The patient also still have episodes of irritability, but in general, she seems to be calmer than before. She also is paranoid about what was happening and she is still confused and responding to stimuli. ASSESSMENT: The patient is still confused and psychotic. TREATMENT PLAN: Depakote blood level came back to be 35.7. We will continue Zyprexa 5 mg twice a day, but will increase Depakote to 500 mg twice a day and will continue to follow up closely. [facility]# [id number]
[2018-03-11] MEDS: Multivitamin w/ Minerals Tab PO SCH (09:18)
--- NOTE | 2018-03-11 19:41 | Internal Medicine Prog Note ---
Internal Medicine Subjective - Subjective Service Date: 03/11/18 Patient seen and examined:: with staff Patient is:: awake, verbal, in bed, talking Per staff patient has:: no adverse event Internal Medicine Objective - Results Result Diagrams: 03/05/18 21:30 03/05/18 21:30 Recent Labs: Laboratory Last Values WBC 7.6 Th/cmm (4.8-10.8) 03/05/18 21:30 RBC 4.49 Mil/cmm (3.80-5.10) 03/05/18 21:30 Hgb 13.4 gm/dL (12-16) 03/05/18 21:30 Hct 39.9 % (41.0-60) L 03/05/18 21: MCV 89.0 fl (81-100) 03/05/18 21:30 MCH 29.8 pg (27.0-31.0) 03/05/18: MCHC Differential 33.5 pg (28.0-36.0) 03/05/18 21:30 RDW 13.2 % (11.5-20.0) 03/05/18 21:30 Plt Count 336 Th/cmm (150-400) 03/05/18 21:30 MPV 7.2 fl 03/05/18 21:30 Neutrophils % 64.9 % (40.0-80.0) 03/05/18 21:30 Lymphocytes % 23.4 % (20.0-50.0) 03/05/18 21: Monocytes % 8.7 % (2.0-10.0) 03/05/18 21: Eosinophils % 3.0 % (0.0-5.0) 03/05/18 21:30 Basophils % 0.0 % (0.0-2.0) 03/05/18 21:30 Sodium 140 mEq/L (136-145) 03/05/18 21:30 Potassium 4.0 mEq/L (3.5-5.1) 03/05/18 21:30 Chloride 104 mEq/L (98-107) 03/05/18 21:30 Carbon Dioxide 27.7 mEq/L (21.0-31.0) 03/05/18 21:30 Anion Gap 12.3 (7.0-16.0) 03/05/18 21:30 BUN 10 mg/dL (7-25) 03/05/18 21:30 Creatinine 0.5 mg/dL (0.6-1.2) L 03/05/18 21:30 Est GFR ( Amer) > 60.0 ml/min (>90) 03/05/18 21:30 Est GFR (Non-Af Amer) > 60.0 ml/min 03/05/18 21:30 BUN/Creatinine Ratio 20.0 03/05/18 21:30 Glucose 151 mg/dL (70-105) H 03/05/18 21:30 Calcium 9.7 mg/dL (8.6-10.3) 03/05/18 21:30 Total Bilirubin 0.2 mg/dL (0.3-1.0) L 03/05/18 21:30 AST 22 U/L (13-39) 03/05/18 21:30 ALT 32 U/L (7-52) 03/05/18 21:30 Alkaline Phosphatase 71 U/L (34-104) 03/05/18 21:30 Total Protein 7.1 gm/dL (6.0-8.3) 03/05/18 21:30 Albumin 3.9 gm/dL (3.7-5.3) 03/05/18 21:30 Globulin 3.2 gm/dL 03/05/18 21:30 Albumin/Globulin Ratio 1.2 (1.0-1.8) 03/05/18 21:30 Triglycerides 220 mg/dL (<150) H 03/06/18 00:00 Cholesterol 200 mg/dL (<200) 03/06/18 00:00 LDL Cholesterol Direct 141 mg/dL (75-193) 03/06/18 00:00 HDL Cholesterol 43 mg/dL (23-92) 03/06/18 00:00 Urine Source CLEAN C 03/06/18 23:15 Urine Color YELLOW 03/06/18 23:15 Urine Clarity CLEAR (CLEAR) 03/06/18 23:15 Urine pH 7.0 (4.6 - 8.0) 03/06/18 23:15 Ur Specific [place] 1.010 (1.005-1.030) 03/06/18 23:15 Urine Protein NEGATIVE mg/dL (NEGATIVE) 03/06/18 23:15 Urine Glucose (UA) NEGATIVE mg/dL (NEGATIVE) 03/06/18 23:15 Urine Ketones NEGATIVE mg/dL (NEGATIVE) 03/06/18 23:15 Urine Blood NEGATIVE (NEGATIVE) 03/06/18 23:15 Urine Nitrate NEGATIVE (NEGATIVE) 03/06/18 23:15 Urine Bilirubin NEGATIVE (NEGATIVE) 03/06/18 23:15 Urine Urobilinogen 0.2 E.U./dL (0.2 - 1.0) 03/06/18 23:15 Ur Leukocyte Esterase NEGATIVE (NEGATIVE) 03/06/18 23:15 Urine RBC NONE SEEN /hpf (0-5) 03/06/18 23:15 Urine WBC 0-2 /hpf (0-5) 03/06/18 23:15 Ur Epithelial Cells FEW /lpf (FEW) 03/06/18 23:15 Urine Bacteria FEW /hpf (NONE SEEN) 03/06/18 23:15 Urine Opiates Screen NEGATIVE (NEGATIVE) 03/06/18 23:15 Urine Methadone Screen NEGATIVE (NEGATIVE) 03/06/18 23:15 Ur Barbiturates Screen NEGATIVE (NEGATIVE) 03/06/18 23:15 Valproic Acid 35.7 ug/mL (50.0-100.0) L 03/08/18 07:45 Ur Tricyclics Screen NEGATIVE (NEGATIVE) 03/06/18 23:15 Ur Phencyclidine Scrn NEGATIVE (NEGATIVE) 03/06/18 23:15 Amphetamines Screen NEGATIVE (NEGATIVE) 03/06/18 23:15 U Methamphetamines Scrn NEGATIVE (NEGATIVE) 03/06/18 23:15 U Benzodiazepines Scrn NEGATIVE (NEGATIVE) 03/06/18 23:15 U Cocaine Metab Screen NEGATIVE (NEGATIVE) 03/06/18 23:15 U Cannabinoids Screen NEGATIVE (NEGATIVE) 03/06/18 23:15 - Physical Exam Vitals and I&O: Vital Signs Temp 97.5 F 03/11/18 06:03 Pulse 86 03/11/18 06:03 Resp 20 03/11/18 12:12 BP 127/58 03/11/18 06:03 Pulse Ox 98 03/11/18 06:03 Intake & Output 03/11/18 03/11/18 03/12/18 06:59 18:59 06:59 Intake Total 470 900 Balance 470 900 Intake: Oral 470 900 Other: # Voids 2 3 # Bowel Movements 1 Active Medications: Current Medications Acetaminophen (Tylenol) 650 mg PO Q4HR PRN PRN Reason: Mild Pain / Temp above 100 Stop: 05/05/18 00:03 Acetaminophen (Tylenol) 650 mg PO Q4HR PRN PRN Reason: Pain or Fever >101 Stop: 05/05/18 18:04 Divalproex Sodium (Depakote Dr) 500 mg PO BID [facility]; Protocol Stop: 05/09/18 08:59 Last Admin: 03/11/18 16:59 Dose: 500 mg Docusate Sodium (Colace) 250 mg PO DAILY KATINA Stop: 05/05/18 08:59 Last Admin: 03/11/18 09:18 Dose: 250 mg Lorazepam (Ativan) 0.5 mg PO Q6HR PRN; Protocol PRN Reason: Anxiety Stop: 04/04/18 23:29 Magnesium Hydroxide (Milk Of Magnesia) 30 ml PO HS PRN PRN Reason: Constipation Magnesium Hydroxide (Milk Of Magnesia) 30 ml PO HS PRN PRN Reason: Constipation Stop: 05/05/18 18:04 Olanzapine (Zyprexa) 5 mg PO BID [facility]; Protocol Stop: 05/05/18 08:59 Last Admin: 03/11/18 16:59 Dose: 5 mg Zolpidem Tartrate (Ambien) 5 mg PO HS PRN PRN Reason: Insomnia Stop: 05/05/18 00:03 General: demented HEENT: NC/AT, PERRLA, EOMI, anicteric sclerae, throat clear Neck: Supple, No JVD, No thyromegaly, +2 carotid pulse wo bruit, No LAD Lungs: CTAB Cardiovascular: RRR, Normal S1, Normal S2, without murmur Abdomen: soft, non-tender, non-distended Extremities: clear Neurological: no change Internal Medicine Assmt/Plan - Assessment Assessment: 1.HYPERLIPIDEMIA. 2.DJD. 3.DEMENTIA. 4.PSYCHOSIS. - Plan Plan: CONTINUE ON CURRENT MEDICATION AND DIET. Nutritional Asmnt/Malnutr-PDOC - Dietary Evaluation Malnutrition Findings (Please click <Entered> for more info): Nutritional Asmnt/Malnutrition Start: 03/11/18 14: 39 Text: Status: Complete Freq: Protocol: Document 03/11/18 14:40 RHAQUE (Rec: 03/11/18 14:48 AMA PINEDA) Nutritional Asmnt/Malnutrition Patient General Information Nutritional Screening Low Risk Diagnosis Psychosis & Agitation Pertinent Medical Hx/Surgical Hx Dementia, Psychosis, Degenerative Joint Disease Subjective Information Pt was asleep during visit. The [employer] described her as a motivated eater who consumes around 75% of her PO meals and even asks for snacks in between. They claim they provide her with whatever is available. Current Diet Order/ Nutrition Support Regular Pertinent Medications Docusate, MOM, Ambien Pertinent Labs (03/05) Gluc 151, (03/06) TG 220 , Cholest 200, LDL 141, HDL 43 Nutritional Hx/Data Height 1.5 m Height (Calculated Centimeters) 149.9 Current Weight (lbs) 66.224 kg Weight (Calculated Kilograms) 66.2 Weight (Calculated Grams) 47429.5 Gary Body Weight 95 % Gary Body Weight 154 Body Mass Index (BMI) 29.5 Weight Status Overweight GI Symptoms Last BM 1x (03/09) Cultural/Ethnic/Sikhism Belief None stated Skin Integrity/Comment: Suresh Score: 20. Skin warm, dry and intact (per Nurse's notes) Current %PO Good (75-100%) Estimated Nutritional Goals BEE in Kcals: Adj wt of IBW Calories/Kcals/Kg 20-25 Kcals Calculated 980-1225 Protein: Adj wt of IBW Protein g/k.8-1 Protein Calculated 39-49 Fluid: ml 980-1225 Nutritional Problem 1. Problem Problem Pt has excessive fat intake Etiology due to current diet order Signs/Symptoms: (03/06) TG 220, Cholest 200, LDL 141, HDL 43 Malnutrition Alert Is there a minimum of two criteria No selected? Query Text:Check all the applicable criteria. A minimum of two criteria are recommended for diagnosis of either severe or non-severe malnutrition. Malnutrition Related to Morbid Obesity Malnutrition related to morbid obesity No Intervention/Recommendation Comments Recommend Changing diet order to Cardiac Diet. Suggest ordering a more recent Lipid Panel. Expected Outcomes/Goals Expected Outcomes/Goals - Maintain more than 75% PO intake - Lipid Panel return to WNL - Provide Fat free snacks as requested - F/U in 7 days as LR
[2018-03-12] MEDS: Multivitamin w/ Minerals Tab PO SCH (09:23)
--- NOTE | 2018-03-12 17:19 | Internal Medicine Prog Note ---
Internal Medicine Subjective - Subjective Service Date: 03/12/18 Patient seen and examined:: with staff Patient is:: awake, verbal, in bed, talking Per staff patient has:: no adverse event Internal Medicine Objective - Results Result Diagrams: 03/05/18 21:30 03/05/18 21:30 Recent Labs: Laboratory Last Values WBC 7.6 Th/cmm (4.8-10.8) 03/05/18 21:30 RBC 4.49 Mil/cmm (3.80-5.10) 03/05/18 21:30 Hgb 13.4 gm/dL (12-16) 03/05/18 21:30 Hct 39.9 % (41.0-60) L 03/05/18 21:30 MCV 89.0 fl (81-100) 03/05/18 21:30 MCH 29.8 pg (27.0-31.0) 03/05/18: MCHC Differential 33.5 pg (28.0-36.0) 03/05/18 21:30 RDW 13.2 % (11.5-20.0) 03/05/18 21:30 Plt Count 336 Th/cmm (150-400) 03/05/18 21:30 MPV 7.2 fl 03/05/18 21:30 Neutrophils % 64.9 % (40.0-80.0) 03/05/18 21:30 Lymphocytes % 23.4 % (20.0-50.0) 03/05/18 21: Monocytes % 8.7 % (2.0-10.0) 03/05/18 21: Eosinophils % 3.0 % (0.0-5.0) 03/05/18 21:30 Basophils % 0.0 % (0.0-2.0) 03/05/18 21:30 Sodium 140 mEq/L (136-145) 03/05/18 21:30 Potassium 4.0 mEq/L (3.5-5.1) 03/05/18 21:30 Chloride 104 mEq/L (98-107) 03/05/18 21:30 Carbon Dioxide 27.7 mEq/L (21.0-31.0) 03/05/18 21:30 Anion Gap 12.3 (7.0-16.0) 03/05/18 21:30 BUN 10 mg/dL (7-25) 03/05/18 21:30 Creatinine 0.5 mg/dL (0.6-1.2) L 03/05/18 21:30 Est GFR ( Amer) > 60.0 ml/min (>90) 03/05/18 21:30 Est GFR (Non-Af Amer) > 60.0 ml/min 03/05/18 21:30 BUN/Creatinine Ratio 20.0 03/05/18 21:30 Glucose 151 mg/dL (70-105) H 03/05/18 21:30 Calcium 9.7 mg/dL (8.6-10.3) 03/05/18 21:30 Total Bilirubin 0.2 mg/dL (0.3-1.0) L 03/05/18 21:30 AST 22 U/L (13-39) 03/05/18 21:30 ALT 32 U/L (7-52) 03/05/18 21:30 Alkaline Phosphatase 71 U/L (34-104) 03/05/18 21:30 Total Protein 7.1 gm/dL (6.0-8.3) 03/05/18 21:30 Albumin 3.9 gm/dL (3.7-5.3) 03/05/18 21:30 Globulin 3.2 gm/dL 03/05/18 21:30 Albumin/Globulin Ratio 1.2 (1.0-1.8) 03/05/18 21:30 Triglycerides 220 mg/dL (<150) H 03/06/18 00:00 Cholesterol 200 mg/dL (<200) 03/06/18 00:00 LDL Cholesterol Direct 141 mg/dL (75-193) 03/06/18 00:00 HDL Cholesterol 43 mg/dL (23-92) 03/06/18 00:00 Urine Source CLEAN C 03/06/18 23:15 Urine Color YELLOW 03/06/18 23:15 Urine Clarity CLEAR (CLEAR) 03/06/18 23:15 Urine pH 7.0 (4.6 - 8.0) 03/06/18 23:15 Ur Specific [place] 1.010 (1.005-1.030) 03/06/18 23:15 Urine Protein NEGATIVE mg/dL (NEGATIVE) 03/06/18 23:15 Urine Glucose (UA) NEGATIVE mg/dL (NEGATIVE) 03/06/18 23:15 Urine Ketones NEGATIVE mg/dL (NEGATIVE) 03/06/18 23:15 Urine Blood NEGATIVE (NEGATIVE) 03/06/18 23:15 Urine Nitrate NEGATIVE (NEGATIVE) 03/06/18 23:15 Urine Bilirubin NEGATIVE (NEGATIVE) 03/06/18 23:15 Urine Urobilinogen 0.2 E.U./dL (0.2 - 1.0) 03/06/18 23:15 Ur Leukocyte Esterase NEGATIVE (NEGATIVE) 03/06/18 23:15 Urine RBC NONE SEEN /hpf (0-5) 03/06/18 23:15 Urine WBC 0-2 /hpf (0-5) 03/06/18 23:15 Ur Epithelial Cells FEW /lpf (FEW) 03/06/18 23:15 Urine Bacteria FEW /hpf (NONE SEEN) 03/06/18 23:15 Urine Opiates Screen NEGATIVE (NEGATIVE) 03/06/18 23:15 Urine Methadone Screen NEGATIVE (NEGATIVE) 03/06/18 23:15 Ur Barbiturates Screen NEGATIVE (NEGATIVE) 03/06/18 23:15 Valproic Acid 35.7 ug/mL (50.0-100.0) L 03/08/18 07:45 Ur Tricyclics Screen NEGATIVE (NEGATIVE) 03/06/18 23:15 Ur Phencyclidine Scrn NEGATIVE (NEGATIVE) 03/06/18 23:15 Amphetamines Screen NEGATIVE (NEGATIVE) 03/06/18 23:15 U Methamphetamines Scrn NEGATIVE (NEGATIVE) 03/06/18 23:15 U Benzodiazepines Scrn NEGATIVE (NEGATIVE) 03/06/18 23:15 U Cocaine Metab Screen NEGATIVE (NEGATIVE) 03/06/18 23:15 U Cannabinoids Screen NEGATIVE (NEGATIVE) 03/06/18 23:15 - Physical Exam Vitals and I&O: Vital Signs Temp 98.6 F 03/12/18 14:23 Pulse 106 03/12/18 14:23 Resp 20 03/12/18 14:23 BP 133/55 03/12/18 14:23 Pulse Ox 97 03/12/18 14:23 Intake & Output 03/11/18 03/12/18 03/12/18 18:59 06:59 18:59 Intake Total 900 120 Balance 900 120 Intake: Oral 900 120 Other: # Voids 3 3 # Bowel Movements 1 Active Medications: Current Medications Acetaminophen (Tylenol) 650 mg PO Q4HR PRN PRN Reason: Mild Pain / Temp above 100 Stop: 05/05/18 00:03 Acetaminophen (Tylenol) 650 mg PO Q4HR PRN PRN Reason: Pain or Fever >101 Stop: 05/05/18 18:04 Divalproex Sodium (Depakote Dr) 500 mg PO BID [facility]; Protocol Stop: 05/09/18 08:59 Last Admin: 03/12/18 09:23 Dose: 500 mg Docusate Sodium (Colace) 250 mg PO DAILY KATINA Stop: 05/05/18 08:59 Last Admin: 03/12/18 09:23 Dose: 250 mg Lorazepam (Ativan) 0.5 mg PO Q6HR PRN; Protocol PRN Reason: Anxiety Stop: 04/04/18 23:29 Magnesium Hydroxide (Milk Of Magnesia) 30 ml PO HS PRN PRN Reason: Constipation Magnesium Hydroxide (Milk Of Magnesia) 30 ml PO HS PRN PRN Reason: Constipation Stop: 05/05/18 18:04 Olanzapine (Zyprexa) 5 mg PO BID [facility]; Protocol Stop: 05/05/18 08:59 Last Admin: 03/12/18 09:24 Dose: 5 mg Zolpidem Tartrate (Ambien) 5 mg PO HS PRN PRN Reason: Insomnia Stop: 05/05/18 00:03 General: demented HEENT: NC/AT, PERRLA, EOMI, anicteric sclerae, throat clear Neck: Supple, No JVD, No thyromegaly, +2 carotid pulse wo bruit, No LAD Lungs: CTAB Cardiovascular: RRR, Normal S1, Normal S2, without murmur Abdomen: soft, non-tender, non-distended Extremities: clear Neurological: no change Internal Medicine Assmt/Plan - Assessment Assessment: 1.HYPERLIPIDEMIA. 2.DJD. 3.DEMENTIA. 4.PSYCHOSIS. - Plan Plan: CONTINUE ON CURRENT MEDICATION AND DIET. Nutritional Asmnt/Malnutr-PDOC - Dietary Evaluation Malnutrition Findings (Please click <Entered> for more info): Nutritional Asmnt/Malnutrition Start: 03/11/18 14: 39 Text: Status: Complete Freq: Protocol: Document 03/11/18 14:40 RHAQUE (Rec: 03/11/18 14:48 AMA PINEDA) Nutritional Asmnt/Malnutrition Patient General Information Nutritional Screening Low Risk Diagnosis Psychosis & Agitation Pertinent Medical Hx/Surgical Hx Dementia, Psychosis, Degenerative Joint Disease Subjective Information Pt was asleep during visit. The EMERGENCY MEDICAL SERVICE COORDINATOR described her as a motivated eater who consumes around 75% of her PO meals and even asks for snacks in between. They claim they provide her with whatever is available. Current Diet Order/ Nutrition Support Regular Pertinent Medications Docusate, MOM, Ambien Pertinent Labs (03/05) Gluc 151, (03/06) TG 220 , Cholest 200, LDL 141, HDL 43 Nutritional Hx/Data Height 1.5 m Height (Calculated Centimeters) 149.9 Current Weight (lbs) 66.224 kg Weight (Calculated Kilograms) 66.2 Weight (Calculated Grams) 53517.5 [place] Body Weight 95 % [place] Body Weight 154 Body Mass Index (BMI) 29.5 Weight Status Overweight GI Symptoms Last BM 1x (03/09) Cultural/Ethnic/Worship Belief None stated Skin Integrity/Comment: Suresh Score: 20. Skin warm, dry and intact (per Nurse's notes) Current %PO Good (75-100%) Estimated Nutritional Goals BEE in Kcals: Adj wt of IBW Calories/Kcals/Kg 20-25 Kcals Calculated 980-1225 Protein: Adj wt of IBW Protein g/k.8-1 Protein Calculated 39-49 Fluid: ml 980-1225 Nutritional Problem 1. Problem Problem Pt has excessive fat intake Etiology due to current diet order Signs/Symptoms: (03/06) TG 220, Cholest 200, LDL 141, HDL 43 Malnutrition Alert Is there a minimum of two criteria No selected? Query Text:Check all the applicable criteria. A minimum of two criteria are recommended for diagnosis of either severe or non-severe malnutrition. Malnutrition Related to Morbid Obesity Malnutrition related to morbid obesity No Intervention/Recommendation Comments Recommend Changing diet order to Cardiac Diet. Suggest ordering a more recent Lipid Panel. Expected Outcomes/Goals Expected Outcomes/Goals - Maintain more than 75% PO intake - Lipid Panel return to WNL - Provide Fat free snacks as requested - F/U in 7 days as LR
--- NOTE | 2018-03-12 22:04 | Progress Notes ---
DATE: SUBJECTIVE: Chart reviewed and the patient interviewed. Also discussed the patient's condition with the staff and reviewed records and labs. The patient is still responding to stimuli and she is still confused and paranoid. The patient also is still preoccupied and at times talking to self. She also is calm and she is less agitated and less irritable. Otherwise, the patient also is compliant with taking her medications with no side effect of medications. ASSESSMENT: The patient is still confused and seems to be psychotic. TREATMENT PLAN: We will continue to monitor behavior and condition closely. Also, yesterday Depakote was increased to 500 mg twice a day. We will continue same dose and we will continue to follow up. JOB# [id number]
[2018-03-13] MEDS: Multivitamin w/ Minerals Tab PO SCH (09:13)
--- NOTE | 2018-03-13 15:34 | General Progress Note ---
Subjective - Review of Systems Service Date: 03/13/18 Subjective: resting comfortably no distress Objective - Results Result Diagrams: 03/05/18 21:30 03/05/18 21:30 Recent Labs: Laboratory Last Values WBC 7.6 Th/cmm (4.8-10.8) 03/05/18 21:30 RBC 4.49 Mil/cmm (3.80-5.10) 03/05/18 21:30 Hgb 13.4 gm/dL (12-16) 03/05/18 21:30 Hct 39.9 % (41.0-60) L 03/05/18 21:30 MCV 89.0 fl (81-100) 03/05/18 21:30 MCH 29.8 pg (27.0-31.0) 03/05/18 21: MCHC Differential 33.5 pg (28.0-36.0) 03/05/18 21:30 RDW 13.2 % (11.5-20.0) 03/05/18 21: Plt Count 336 Th/cmm (150-400) 03/05/18 21:30 MPV 7.2 fl 03/05/18 21:30 Neutrophils % 64.9 % (40.0-80.0) 03/05/18 21:30 Lymphocytes % 23.4 % (20.0-50.0) 03/05/18 21: Monocytes % 8.7 % (2.0-10.0) 03/05/18 21:30 Eosinophils % 3.0 % (0.0-5.0) 03/05/18 21: Basophils % 0.0 % (0.0-2.0) 03/05/18 21:30 Sodium 140 mEq/L (136-145) 03/05/18 21:30 Potassium 4.0 mEq/L (3.5-5.1) 03/05/18 21:30 Chloride 104 mEq/L (98-107) 03/05/18 21:30 Carbon Dioxide 27.7 mEq/L (21.0-31.0) 03/05/18 21:30 Anion Gap 12.3 (7.0-16.0) 03/05/18 21:30 BUN 10 mg/dL (7-25) 03/05/18 21:30 Creatinine 0.5 mg/dL (0.6-1.2) L 03/05/18 21:30 Est GFR ( Amer) > 60.0 ml/min (>90) 03/05/18 21:30 Est GFR (Non-Af Amer) > 60.0 ml/min 03/05/18 21:30 BUN/Creatinine Ratio 20.0 03/05/18 21:30 Glucose 151 mg/dL (70-105) H 03/05/18 21:30 Calcium 9.7 mg/dL (8.6-10.3) 03/05/18 21:30 Total Bilirubin 0.2 mg/dL (0.3-1.0) L 03/05/18 21:30 AST 22 U/L (13-39) 03/05/18 21:30 ALT 32 U/L (7-52) 03/05/18 21:30 Alkaline Phosphatase 71 U/L (34-104) 03/05/18 21:30 Total Protein 7.1 gm/dL (6.0-8.3) 03/05/18 21:30 Albumin 3.9 gm/dL (3.7-5.3) 03/05/18 21:30 Globulin 3.2 gm/dL 03/05/18 21:30 Albumin/Globulin Ratio 1.2 (1.0-1.8) 03/05/18 21:30 Triglycerides 220 mg/dL (<150) H 03/06/18 00:00 Cholesterol 200 mg/dL (<200) 03/06/18 00:00 LDL Cholesterol Direct 141 mg/dL (75-193) 03/06/18 00:00 HDL Cholesterol 43 mg/dL (23-92) 03/06/18 00:00 Urine Source CLEAN C 03/06/18 23:15 Urine Color YELLOW 03/06/18 23:15 Urine Clarity CLEAR (CLEAR) 03/06/18 23:15 Urine pH 7.0 (4.6 - 8.0) 03/06/18 23:15 Ur Specific [place] 1.010 (1.005-1.030) 03/06/18 23:15 Urine Protein NEGATIVE mg/dL (NEGATIVE) 03/06/18 23:15 Urine Glucose (UA) NEGATIVE mg/dL (NEGATIVE) 03/06/18 23:15 Urine Ketones NEGATIVE mg/dL (NEGATIVE) 03/06/18 23:15 Urine Blood NEGATIVE (NEGATIVE) 03/06/18 23:15 Urine Nitrate NEGATIVE (NEGATIVE) 03/06/18 23:15 Urine Bilirubin NEGATIVE (NEGATIVE) 03/06/18 23:15 Urine Urobilinogen 0.2 E.U./dL (0.2 - 1.0) 03/06/18 23:15 Ur Leukocyte Esterase NEGATIVE (NEGATIVE) 03/06/18 23:15 Urine RBC NONE SEEN /hpf (0-5) 03/06/18 23:15 Urine WBC 0-2 /hpf (0-5) 03/06/18 23:15 Ur Epithelial Cells FEW /lpf (FEW) 03/06/18 23:15 Urine Bacteria FEW /hpf (NONE SEEN) 03/06/18 23:15 Urine Opiates Screen NEGATIVE (NEGATIVE) 03/06/18 23:15 Urine Methadone Screen NEGATIVE (NEGATIVE) 03/06/18 23:15 Ur Barbiturates Screen NEGATIVE (NEGATIVE) 03/06/18 23:15 Valproic Acid 35.7 ug/mL (50.0-100.0) L 03/08/18 07:45 Ur Tricyclics Screen NEGATIVE (NEGATIVE) 03/06/18 23:15 Ur Phencyclidine Scrn NEGATIVE (NEGATIVE) 03/06/18 23:15 Amphetamines Screen NEGATIVE (NEGATIVE) 03/06/18 23:15 U Methamphetamines Scrn NEGATIVE (NEGATIVE) 03/06/18 23:15 U Benzodiazepines Scrn NEGATIVE (NEGATIVE) 03/06/18 23:15 U Cocaine Metab Screen NEGATIVE (NEGATIVE) 03/06/18 23:15 U Cannabinoids Screen NEGATIVE (NEGATIVE) 03/06/18 23:15 - Physical Exam Vitals and I&O: Vital Signs Temp 97.8 F 03/13/18 15:00 Pulse 100 03/13/18 15:00 Resp 20 03/13/18 15:00 BP 151/71 03/13/18 15:00 Pulse Ox 96 03/13/18 15:00 Intake & Output 03/12/18 03/13/18 03/13/18 18:59 06:59 18:59 Intake Total 900 240 Output Total 0 Balance 900 240 Intake: Oral 900 240 Output: Stool 0 Other: # Voids 3 3 # Bowel Movements 1 Active Medications: Current Medications Acetaminophen (Tylenol) 650 mg PO Q4HR PRN PRN Reason: Pain or Fever >101 Stop: 05/05/18 18:04 Divalproex Sodium (Depakote Dr) 500 mg PO BID [facility]; Protocol Stop: 05/09/18 08:59 Last Admin: 03/13/18 09:13 Dose: 500 mg Docusate Sodium (Colace) 250 mg PO DAILY KATINA Stop: 05/05/18 08:59 Last Admin: 03/13/18 09:13 Dose: 250 mg Lorazepam (Ativan) 0.5 mg PO Q6HR PRN; Protocol PRN Reason: Anxiety Stop: 04/04/18 23:29 Magnesium Hydroxide (Milk Of Magnesia) 30 ml PO HS PRN PRN Reason: Constipation Olanzapine (Zyprexa) 5 mg PO BID [facility]; Protocol Stop: 05/05/18 08:59 Last Admin: 03/13/18 09:13 Dose: 5 mg Zolpidem Tartrate (Ambien) 5 mg PO HS PRN PRN Reason: Insomnia Stop: 05/05/18 00:03 General: No acute distress HEENT: Atraumatic Neck: Supple, JVD Cardiovascular: Regular rate, Normal S1, Normal S2 Lungs: Clear to auscultation Abdomen: Bowel sounds, Soft Assessment/Plan - Assessment Assessment: 1.HYPERLIPIDEMIA. 2.DJD. 3.DEMENTIA. 4.PSYCHOSIS. - Plan Plan: continue current treatment Nutritional Asmnt/Malnutr-PDOC - Dietary Evaluation Malnutrition Findings (Please click <Entered> for more info): Nutritional Asmnt/Malnutrition Start: 03/11/18 14: 39 Text: Status: Complete Freq: Protocol: Document 03/11/18 14:40 RHAQUE (Rec: 03/11/18 14:48 RHAQUE MIRIAM) Nutritional Asmnt/Malnutrition Patient General Information Nutritional Screening Low Risk Diagnosis Psychosis & Agitation Pertinent Medical Hx/Surgical Hx Dementia, Psychosis, Degenerative Joint Disease Subjective Information Pt was asleep during visit. The SOLAR FABRICATION TECHNICIAN described her as a motivated eater who consumes around 75% of her PO meals and even asks for snacks in between. They claim they provide her with whatever is available. Current Diet Order/ Nutrition Support Regular Pertinent Medications Docusate, MOM, Ambien Pertinent Labs (03/05) Gluc 151, (03/06) TG 220 , Cholest 200, LDL 141, HDL 43 Nutritional Hx/Data Height 1.5 m Height (Calculated Centimeters) 149.9 Current Weight (lbs) 66.224 kg Weight (Calculated Kilograms) 66.2 Weight (Calculated Grams) 18725.5 [place] Body Weight 95 % [place] Body Weight 154 Body Mass Index (BMI) 29.5 Weight Status Overweight GI Symptoms Last BM 1x (03/09) Cultural/Ethnic/Yarsani Belief None stated Skin Integrity/Comment: Suresh Score: 20. Skin warm, dry and intact (per Nurse's notes) Current %PO Good (75-100%) Estimated Nutritional Goals BEE in Kcals: Adj wt of IBW Calories/Kcals/Kg 20-25 Kcals Calculated 980-1225 Protein: Adj wt of IBW Protein g/k.8-1 Protein Calculated 39-49 Fluid: ml 980-1225 Nutritional Problem 1. Problem Problem Pt has excessive fat intake Etiology due to current diet order Signs/Symptoms: (03/06) TG 220, Cholest 200, LDL 141, HDL 43 Malnutrition Alert Is there a minimum of two criteria No selected? Query Text:Check all the applicable criteria. A minimum of two criteria are recommended for diagnosis of either severe or non-severe malnutrition. Malnutrition Related to Morbid Obesity Malnutrition related to morbid obesity No Intervention/Recommendation Comments Recommend Changing diet order to Cardiac Diet. Suggest ordering a more recent Lipid Panel. Expected Outcomes/Goals Expected Outcomes/Goals - Maintain more than 75% PO intake - Lipid Panel return to WNL - Provide Fat free snacks as requested - F/U in 7 days as LR
--- NOTE | 2018-03-13 22:37 | Progress Notes ---
DATE: 03/13/[address] Ni. IDENTIFYING DATA: A 62-year-old female who was brought in here for increase in agitation and aggressive behavior from [place]. She was not making sense and talking about having ____. CURRENT MEDICATION REGIMEN: Includes Depakote 500 p.o. b.i.d., lorazepam as needed, olanzapine 5 mg p.o. b.i.d. Today on [id number] evaluation, the patient is disorganized and reports that she is being shoot outside and then making bizarre comments about "I do not crib about the movie." EXAMINATION: Disorganized, derails in conversation. ASSESSMENT AND PLAN: The patient is a 62-year-old female with symptoms consistent with disorganized schizophrenia. Continue with the recent augmentation of the Zyprexa at 5 mg p.o. b.i.d. to target the patient's disorganized thought process and also ____. JOB# [id number]
--- NOTE | 2018-03-14 03:36 | Progress Notes ---
DATE: SUBJECTIVE: Chart reviewed and the patient interviewed. Also, discussed the patient's condition with the staff and reviewed records and labs. The patient is still anxious and is still restless and confused. The patient also is withdrawn and wants to be left alone. The patient also is interacting minimally with others. The patient denies any intention to harm herself or others. She is still severely confused and restless. Otherwise, the patient is compliant with taking her medications with no side effects of medication. ASSESSMENT: The patient is still confused and psychotic. JOB# [id number]
[2018-03-14] MEDS: Multivitamin w/ Minerals Tab PO SCH (09:01)
--- NOTE | 2018-03-14 19:48 | General Progress Note ---
Subjective - Review of Systems Service Date: 03/14/18 Subjective: resting comfortably no distress Objective - Results Result Diagrams: 03/05/18 21:30 03/05/18 21:30 Recent Labs: Laboratory Last Values WBC 7.6 Th/cmm (4.8-10.8) 03/05/18 21:30 RBC 4.49 Mil/cmm (3.80-5.10) 03/05/18 21:30 Hgb 13.4 gm/dL (12-16) 03/05/18 21:30 Hct 39.9 % (41.0-60) L 03/05/18 21:30 MCV 89.0 fl (81-100) 03/05/18 21:30 MCH 29.8 pg (27.0-31.0) 03/05/18 21: MCHC Differential 33.5 pg (28.0-36.0) 03/05/18 21:30 RDW 13.2 % (11.5-20.0) 03/05/18 21:30 Plt Count 336 Th/cmm (150-400) 03/05/18 21:30 MPV 7.2 fl 03/05/18 21:30 Neutrophils % 64.9 % (40.0-80.0) 03/05/18 21:30 Lymphocytes % 23.4 % (20.0-50.0) 03/05/18 21: Monocytes % 8.7 % (2.0-10.0) 03/05/18 21:30 Eosinophils % 3.0 % (0.0-5.0) 03/05/18 21: Basophils % 0.0 % (0.0-2.0) 03/05/18 21:30 Sodium 140 mEq/L (136-145) 03/05/18 21:30 Potassium 4.0 mEq/L (3.5-5.1) 03/05/18 21:30 Chloride 104 mEq/L (98-107) 03/05/18 21:30 Carbon Dioxide 27.7 mEq/L (21.0-31.0) 03/05/18 21:30 Anion Gap 12.3 (7.0-16.0) 03/05/18 21:30 BUN 10 mg/dL (7-25) 03/05/18 21:30 Creatinine 0.5 mg/dL (0.6-1.2) L 03/05/18 21:30 Est GFR ( Amer) > 60.0 ml/min (>90) 03/05/18 21:30 Est GFR (Non-Af Amer) > 60.0 ml/min 03/05/18 21:30 BUN/Creatinine Ratio 20.0 03/05/18 21:30 Glucose 151 mg/dL (70-105) H 03/05/18 21:30 Calcium 9.7 mg/dL (8.6-10.3) 03/05/18 21:30 Total Bilirubin 0.2 mg/dL (0.3-1.0) L 03/05/18 21:30 AST 22 U/L (13-39) 03/05/18 21:30 ALT 32 U/L (7-52) 03/05/18 21:30 Alkaline Phosphatase 71 U/L (34-104) 03/05/18 21:30 Total Protein 7.1 gm/dL (6.0-8.3) 03/05/18 21:30 Albumin 3.9 gm/dL (3.7-5.3) 03/05/18 21:30 Globulin 3.2 gm/dL 03/05/18 21:30 Albumin/Globulin Ratio 1.2 (1.0-1.8) 03/05/18 21:30 Triglycerides 220 mg/dL (<150) H 03/06/18 00:00 Cholesterol 200 mg/dL (<200) 03/06/18 00:00 LDL Cholesterol Direct 141 mg/dL (75-193) 03/06/18 00:00 HDL Cholesterol 43 mg/dL (23-92) 03/06/18 00:00 Urine Source CLEAN C 03/06/18 23:15 Urine Color YELLOW 03/06/18 23:15 Urine Clarity CLEAR (CLEAR) 03/06/18 23:15 Urine pH 7.0 (4.6 - 8.0) 03/06/18 23:15 Ur Specific [place] 1.010 (1.005-1.030) 03/06/18 23:15 Urine Protein NEGATIVE mg/dL (NEGATIVE) 03/06/18 23:15 Urine Glucose (UA) NEGATIVE mg/dL (NEGATIVE) 03/06/18 23:15 Urine Ketones NEGATIVE mg/dL (NEGATIVE) 03/06/18 23:15 Urine Blood NEGATIVE (NEGATIVE) 03/06/18 23:15 Urine Nitrate NEGATIVE (NEGATIVE) 03/06/18 23:15 Urine Bilirubin NEGATIVE (NEGATIVE) 03/06/18 23:15 Urine Urobilinogen 0.2 E.U./dL (0.2 - 1.0) 03/06/18 23:15 Ur Leukocyte Esterase NEGATIVE (NEGATIVE) 03/06/18 23:15 Urine RBC NONE SEEN /hpf (0-5) 03/06/18 23:15 Urine WBC 0-2 /hpf (0-5) 03/06/18 23:15 Ur Epithelial Cells FEW /lpf (FEW) 03/06/18 23:15 Urine Bacteria FEW /hpf (NONE SEEN) 03/06/18 23:15 Urine Opiates Screen NEGATIVE (NEGATIVE) 03/06/18 23:15 Urine Methadone Screen NEGATIVE (NEGATIVE) 03/06/18 23:15 Ur Barbiturates Screen NEGATIVE (NEGATIVE) 03/06/18 23:15 Valproic Acid 35.7 ug/mL (50.0-100.0) L 03/08/18 07:45 Ur Tricyclics Screen NEGATIVE (NEGATIVE) 03/06/18 23:15 Ur Phencyclidine Scrn NEGATIVE (NEGATIVE) 03/06/18 23:15 Amphetamines Screen NEGATIVE (NEGATIVE) 03/06/18 23:15 U Methamphetamines Scrn NEGATIVE (NEGATIVE) 03/06/18 23:15 U Benzodiazepines Scrn NEGATIVE (NEGATIVE) 03/06/18 23:15 U Cocaine Metab Screen NEGATIVE (NEGATIVE) 03/06/18 23:15 U Cannabinoids Screen NEGATIVE (NEGATIVE) 03/06/18 23:15 - Physical Exam Vitals and I&O: Vital Signs Temp 98.0 F 03/14/18 18:17 Pulse 100 03/14/18 18:17 Resp 20 03/14/18 18:17 BP 143/61 03/14/18 18:17 Pulse Ox 90 03/14/18 18:17 Intake & Output 03/14/18 03/14/18 03/15/18 06:59 18:59 06:59 Intake Total 480 1200 Output Total 1 Balance 479 1200 Intake: Oral 480 1200 Output: Stool 1 Other: # Voids 2 4 # Bowel Movements 1 Active Medications: Current Medications Acetaminophen (Tylenol) 650 mg PO Q4HR PRN PRN Reason: Pain or Fever >101 Stop: 05/05/18 18:04 Divalproex Sodium (Depakote Dr) 500 mg PO BID [facility]; Protocol Stop: 05/09/18 08:59 Last Admin: 03/14/18 17:00 Dose: 500 mg Docusate Sodium (Colace) 250 mg PO DAILY KATINA Stop: 05/05/18 08:59 Last Admin: 03/14/18 09:01 Dose: 250 mg Lorazepam (Ativan) 0.5 mg PO Q6HR PRN; Protocol PRN Reason: Anxiety Stop: 04/04/18 23:29 Magnesium Hydroxide (Milk Of Magnesia) 30 ml PO HS PRN PRN Reason: Constipation Olanzapine (Zyprexa) 5 mg PO BID [facility]; Protocol Stop: 05/05/18 08:59 Last Admin: 03/14/18 17:00 Dose: 5 mg Zolpidem Tartrate (Ambien) 5 mg PO HS PRN PRN Reason: Insomnia Stop: 05/05/18 00:03 General: No acute distress HEENT: Atraumatic Neck: Supple, JVD Cardiovascular: Regular rate, Normal S1, Normal S2 Lungs: Clear to auscultation Abdomen: Bowel sounds, Soft Assessment/Plan - Assessment Assessment: 1.HYPERLIPIDEMIA. 2.DJD. 3.DEMENTIA. 4.PSYCHOSIS. - Plan Plan: continue current treatment Nutritional Asmnt/Malnutr-PDOC - Dietary Evaluation Malnutrition Findings (Please click <Entered> for more info): Nutritional Asmnt/Malnutrition Start: 03/11/18 14: 39 Text: Status: Complete Freq: Protocol: Document 03/11/18 14:40 RHAQUE (Rec: 03/11/18 14:48 RHAQUE MIRIAM) Nutritional Asmnt/Malnutrition Patient General Information Nutritional Screening Low Risk Diagnosis Psychosis & Agitation Pertinent Medical Hx/Surgical Hx Dementia, Psychosis, Degenerative Joint Disease Subjective Information Pt was asleep during visit. The [employer] described her as a motivated eater who consumes around 75% of her PO meals and even asks for snacks in between. They claim they provide her with whatever is available. Current Diet Order/ Nutrition Support Regular Pertinent Medications Docusate, MOM, Ambien Pertinent Labs (03/05) Gluc 151, (03/06) TG 220 , Cholest 200, LDL 141, HDL 43 Nutritional Hx/Data Height 1.5 m Height (Calculated Centimeters) 149.9 Current Weight (lbs) 66.224 kg Weight (Calculated Kilograms) 66.2 Weight (Calculated Grams) 14284.5 [place] Body Weight 95 % [place] Body Weight 154 Body Mass Index (BMI) 29.5 Weight Status Overweight GI Symptoms Last BM 1x (03/09) Cultural/Ethnic/Adventism Belief None stated Skin Integrity/Comment: Suresh Score: 20. Skin warm, dry and intact (per Nurse's notes) Current %PO Good (75-100%) Estimated Nutritional Goals BEE in Kcals: Adj wt of IBW Calories/Kcals/Kg 20-25 Kcals Calculated 980-1225 Protein: Adj wt of IBW Protein g/k.8-1 Protein Calculated 39-49 Fluid: ml 980-1225 Nutritional Problem 1. Problem Problem Pt has excessive fat intake Etiology due to current diet order Signs/Symptoms: (03/06) TG 220, Cholest 200, LDL 141, HDL 43 Malnutrition Alert Is there a minimum of two criteria No selected? Query Text:Check all the applicable criteria. A minimum of two criteria are recommended for diagnosis of either severe or non-severe malnutrition. Malnutrition Related to Morbid Obesity Malnutrition related to morbid obesity No Intervention/Recommendation Comments Recommend Changing diet order to Cardiac Diet. Suggest ordering a more recent Lipid Panel. Expected Outcomes/Goals Expected Outcomes/Goals - Maintain more than 75% PO intake - Lipid Panel return to WNL - Provide Fat free snacks as requested - F/U in 7 days as LR
--- NOTE | 2018-03-14 20:21 | Progress Notes ---
DATE: 03/14/[address] Ni. Today on [id number] evaluation, she is observed to be easily anxious, restless. Overnight nursing staff reported that the patient mostly has been minimally interactive with others today. ASSESSMENT AND PLAN: The patient continues to need a lot of redirection, isolative, withdrawn and disengaged with poor engagement. We will continue with primary psychiatric treatment plan and goals of the Zyprexa at 5 mg p.o. b.i.d. JOB# [id number]
[2018-03-15] MEDS: Multivitamin w/ Minerals Tab PO SCH (09:16)
--- NOTE | 2018-03-15 19:53 | Internal Medicine Prog Note ---
Internal Medicine Subjective - Subjective Service Date: 03/15/18 Patient seen and examined:: without staff Patient is:: awake, verbal, in bed, talking Per staff patient has:: no adverse event Internal Medicine Objective - Results Result Diagrams: 03/05/18 21:30 03/05/18 21:30 Recent Labs: Laboratory Last Values WBC 7.6 Th/cmm (4.8-10.8) 03/05/18 21:30 RBC 4.49 Mil/cmm (3.80-5.10) 03/05/18 21:30 Hgb 13.4 gm/dL (12-16) 03/05/18 21:30 Hct 39.9 % (41.0-60) L 03/05/18 21: MCV 89.0 fl (81-100) 03/05/18 21:30 MCH 29.8 pg (27.0-31.0) 03/05/18: MCHC Differential 33.5 pg (28.0-36.0) 03/05/18 21:30 RDW 13.2 % (11.5-20.0) 03/05/18 21:30 Plt Count 336 Th/cmm (150-400) 03/05/18 21: MPV 7.2 fl 03/05/18 21:30 Neutrophils % 64.9 % (40.0-80.0) 03/05/18 21: Lymphocytes % 23.4 % (20.0-50.0) 03/05/18 21: Monocytes % 8.7 % (2.0-10.0) 03/05/18 21: Eosinophils % 3.0 % (0.0-5.0) 03/05/18 21: Basophils % 0.0 % (0.0-2.0) 03/05/18 21:30 Sodium 140 mEq/L (136-145) 03/05/18 21:30 Potassium 4.0 mEq/L (3.5-5.1) 03/05/18 21: Chloride 104 mEq/L (98-107) 03/05/18 21: Carbon Dioxide 27.7 mEq/L (21.0-31.0) 03/05/18 21: Anion Gap 12.3 (7.0-16.0) 03/05/18 21:30 BUN 10 mg/dL (7-25) 03/05/18 21:30 Creatinine 0.5 mg/dL (0.6-1.2) L 03/05/18 21:30 Est GFR ( Amer) > 60.0 ml/min (>90) 03/05/18 21:30 Est GFR (Non-Af Amer) > 60.0 ml/min 03/05/18 21:30 BUN/Creatinine Ratio 20.0 03/05/18 21:30 Glucose 151 mg/dL (70-105) H 03/05/18 21:30 Calcium 9.7 mg/dL (8.6-10.3) 03/05/18 21:30 Total Bilirubin 0.2 mg/dL (0.3-1.0) L 03/05/18 21:30 AST 22 U/L (13-39) 03/05/18 21:30 ALT 32 U/L (7-52) 03/05/18 21:30 Alkaline Phosphatase 71 U/L (34-104) 03/05/18 21:30 Total Protein 7.1 gm/dL (6.0-8.3) 03/05/18 21:30 Albumin 3.9 gm/dL (3.7-5.3) 03/05/18 21:30 Globulin 3.2 gm/dL 03/05/18 21:30 Albumin/Globulin Ratio 1.2 (1.0-1.8) 03/05/18 21:30 Triglycerides 220 mg/dL (<150) H 03/06/18 00:00 Cholesterol 200 mg/dL (<200) 03/06/18 00:00 LDL Cholesterol Direct 141 mg/dL (75-193) 03/06/18 00:00 HDL Cholesterol 43 mg/dL (23-92) 03/06/18 00:00 Urine Source CLEAN C 03/06/18 23:15 Urine Color YELLOW 03/06/18 23:15 Urine Clarity CLEAR (CLEAR) 03/06/18 23:15 Urine pH 7.0 (4.6 - 8.0) 03/06/18 23:15 Ur Specific [place] 1.010 (1.005-1.030) 03/06/18 23:15 Urine Protein NEGATIVE mg/dL (NEGATIVE) 03/06/18 23:15 Urine Glucose (UA) NEGATIVE mg/dL (NEGATIVE) 03/06/18 23:15 Urine Ketones NEGATIVE mg/dL (NEGATIVE) 03/06/18 23:15 Urine Blood NEGATIVE (NEGATIVE) 03/06/18 23:15 Urine Nitrate NEGATIVE (NEGATIVE) 03/06/18 23:15 Urine Bilirubin NEGATIVE (NEGATIVE) 03/06/18 23:15 Urine Urobilinogen 0.2 E.U./dL (0.2 - 1.0) 03/06/18 23:15 Ur Leukocyte Esterase NEGATIVE (NEGATIVE) 03/06/18 23:15 Urine RBC NONE SEEN /hpf (0-5) 03/06/18 23:15 Urine WBC 0-2 /hpf (0-5) 03/06/18 23:15 Ur Epithelial Cells FEW /lpf (FEW) 03/06/18 23:15 Urine Bacteria FEW /hpf (NONE SEEN) 03/06/18 23:15 Urine Opiates Screen NEGATIVE (NEGATIVE) 03/06/18 23:15 Urine Methadone Screen NEGATIVE (NEGATIVE) 03/06/18 23:15 Ur Barbiturates Screen NEGATIVE (NEGATIVE) 03/06/18 23:15 Valproic Acid 35.7 ug/mL (50.0-100.0) L 03/08/18 07:45 Ur Tricyclics Screen NEGATIVE (NEGATIVE) 03/06/18 23:15 Ur Phencyclidine Scrn NEGATIVE (NEGATIVE) 03/06/18 23:15 Amphetamines Screen NEGATIVE (NEGATIVE) 03/06/18 23:15 U Methamphetamines Scrn NEGATIVE (NEGATIVE) 03/06/18 23:15 U Benzodiazepines Scrn NEGATIVE (NEGATIVE) 03/06/18 23:15 U Cocaine Metab Screen NEGATIVE (NEGATIVE) 03/06/18 23:15 U Cannabinoids Screen NEGATIVE (NEGATIVE) 03/06/18 23:15 - Physical Exam Vitals and I&O: Vital Signs Temp 97.7 F 03/15/18 15:10 Pulse 88 03/15/18 15:10 Resp 18 03/15/18 15:10 BP 127/70 03/15/18 15:10 Pulse Ox 97 03/15/18 15:10 Intake & Output 03/15/18 03/15/18 03/16/18 06:59 18:59 06:59 Intake Total 120 1600 Balance 120 1600 Intake: Oral 120 1600 Other: # Voids 3 4 # Bowel Movements 0 1 Active Medications: Current Medications Acetaminophen (Tylenol) 650 mg PO Q4HR PRN PRN Reason: Pain or Fever >101 Stop: 05/05/18 18:04 Divalproex Sodium (Depakote Dr) 500 mg PO BID [facility]; Protocol Stop: 05/09/18 08:59 Last Admin: 03/15/18 16:21 Dose: 500 mg Docusate Sodium (Colace) 250 mg PO DAILY KATINA Stop: 05/05/18 08:59 Last Admin: 03/15/18 09:16 Dose: Not Given Lorazepam (Ativan) 0.5 mg PO Q6HR PRN; Protocol PRN Reason: Anxiety Stop: 04/04/18 23:29 Magnesium Hydroxide (Milk Of Magnesia) 30 ml PO HS PRN PRN Reason: Constipation Olanzapine (Zyprexa) 5 mg PO BID [facility]; Protocol Stop: 05/05/18 08:59 Last Admin: 03/15/18 16:21 Dose: 5 mg Zolpidem Tartrate (Ambien) 5 mg PO HS PRN PRN Reason: Insomnia Stop: 05/05/18 00:03 General: demented HEENT: NC/AT, PERRLA, EOMI, anicteric sclerae, throat clear Neck: Supple, No JVD, No thyromegaly, +2 carotid pulse wo bruit, No LAD Lungs: CTAB Cardiovascular: RRR, Normal S1, Normal S2, without murmur Abdomen: soft, non-tender, non-distended Extremities: clear Neurological: no change Internal Medicine Assmt/Plan - Assessment Assessment: 1.HYPERLIPIDEMIA. 2.DJD. 3.DEMENTIA. 4.PSYCHOSIS. - Plan Plan: CONTINUE ON CURRENT MEDICATION AND DIET. Nutritional Asmnt/Malnutr-PDOC - Dietary Evaluation Malnutrition Findings (Please click <Entered> for more info): Nutritional Asmnt/Malnutrition Start: 03/11/18 14: 39 Text: Status: Complete Freq: Protocol: Document 03/11/18 14:40 RHAQUE (Rec: 03/11/18 14:48 AMA PINEDA) Nutritional Asmnt/Malnutrition Patient General Information Nutritional Screening Low Risk Diagnosis Psychosis & Agitation Pertinent Medical Hx/Surgical Hx Dementia, Psychosis, Degenerative Joint Disease Subjective Information Pt was asleep during visit. The [employer] described her as a motivated eater who consumes around 75% of her PO meals and even asks for snacks in between. They claim they provide her with whatever is available. Current Diet Order/ Nutrition Support Regular Pertinent Medications Parmjit, Omar JOSHUA Pertinent Labs (03/05) Gluc 151, (03/06) TG 220 , Cholest 200, LDL 141, HDL 43 Nutritional Hx/Data Height 1.5 m Height (Calculated Centimeters) 149.9 Current Weight (lbs) 66.224 kg Weight (Calculated Kilograms) 66.2 Weight (Calculated Grams) 29650.5 [place] Body Weight 95 % [place] Body Weight 154 Body Mass Index (BMI) 29.5 Weight Status Overweight GI Symptoms Last BM 1x (03/09) Cultural/Ethnic/Worship Belief None stated Skin Integrity/Comment: Suresh Score: 20. Skin warm, dry and intact (per Nurse's notes) Current %PO Good (75-100%) Estimated Nutritional Goals BEE in Kcals: Adj wt of IBW Calories/Kcals/Kg 20-25 Kcals Calculated 980-1225 Protein: Adj wt of IBW Protein g/k.8-1 Protein Calculated 39-49 Fluid: ml 980-1225 Nutritional Problem 1. Problem Problem Pt has excessive fat intake Etiology due to current diet order Signs/Symptoms: (03/06) TG 220, Cholest 200, LDL 141, HDL 43 Malnutrition Alert Is there a minimum of two criteria No selected? Query Text:Check all the applicable criteria. A minimum of two criteria are recommended for diagnosis of either severe or non-severe malnutrition. Malnutrition Related to Morbid Obesity Malnutrition related to morbid obesity No Intervention/Recommendation Comments Recommend Changing diet order to Cardiac Diet. Suggest ordering a more recent Lipid Panel. Expected Outcomes/Goals Expected Outcomes/Goals - Maintain more than 75% PO intake - Lipid Panel return to WNL - Provide Fat free snacks as requested - F/U in 7 days as LR
--- NOTE | 2018-03-16 04:20 | Progress Notes ---
DATE: SUBJECTIVE: Chart reviewed and the patient interviewed. Also discussed the patient's condition with the staff and reviewed records and labs. The patient is still confused. The patient also has been easily agitated and she is still actively responding to stimuli. The patient also is still wandering in hallways of the unit in a paranoid state and also is easily agitated when staff tries to redirect her. Also during interview, the patient seems to be preoccupied and is agitated. ASSESSMENT: The patient is still psychotic and needs close monitoring. TREATMENT PLAN: Continue to monitor behavior and condition closely. Also continue adjusting psychotropic medications and follow up closely. JOB# [id number]
[2018-03-16] MEDS: Multivitamin w/ Minerals Tab PO SCH ×2 (08:24→08:25)
--- NOTE | 2018-03-17 00:55 | Discharge Summary ---
DATE OF DISCHARGE: 03/16/2018 PATIENT'S AGE: 62. SEX: Female. PHYSICIAN: Dr. Ni. FINAL DIAGNOSIS/PRIMARY DIAGNOSIS: Schizoaffective disorder, mixed type, severe, with psychotic features. REASON FOR HOSPITALIZATION: The patient was admitted to the hospital from [facility] and the patient was rambling, agitated, and in irritable mood. HOSPITAL COURSE: The patient continued to be agitated. The patient also was rambling and thought processes were circumstantial and tangential. She also was threatening others. Gradually, the patient's affect was brighter and the patient was not as agitated and the patient was discharged from the hospital and returned to [facility]. Physical exam of the patient showed the patient had no major medical problems. Outpatient treatment and followup will continue as an outpatient. CRITERIA FOR DISCHARGE: The patient was not feeling agitated or as depressed. Also, we will continue adjusting psychotropic medications and followup with discharge plans. [facility]# [id number]
== END 2018-03-16 18:25 | DRG 885 ==
LOC: ER 20:28 → GERO 23:16
PROVIDERS: ADMIT Psychiatry & Neurology Psychiatry; ATTEND Psychiatry & Neurology Psychiatry
DX: F25.0 Schizoaffective disorder, bipolar type (principal); E78.5 Hyperlipidemia, unspecified; M19.90 Unspecified osteoarthritis, unspecified site; F03.90 Unspecified dementia, unspecified severity, without behavioral disturbance, psychotic disturbance, mood disturbance, and anxiety; F29 Unspecified psychosis not due to a substance or known physiological condition; Z88.8 Allergy status to other drugs, medicaments and biological substances; Z79.899 Other long term (current) drug therapy
CPT/HCPCS: 36415-UA; 80053-TC; 80061-TC; 80164-TC; 80307; 81001-TC; 81003-TC; 83036-90; 85025-TC; 90899; G0410; J7051

== ENCOUNTER 2018-10-05 19:43 | Inpatient (IN) | payer MEDICARE, MEDICAID ==
--- NOTE | 2018-10-05 20:31 | ED Physician Chart ---
ED Chief Complaint/HPI - Patient Information Date Seen:: 10/05/18 Time Seen:: 20:28 Chief Complaint:: "I am " History of Present Illness:: 63 yo female was brought from SNF to ER due to increased agitation and aggressiveness fighting with staff and other residents. Pt stated, "I am ." Allergies:: Allergies Allergy/AdvReac Type Severity Reaction Status Date / Time fluphenazine [From Prolixin] Allergy Verified 03/05/18 20:40 thioridazine [From Mellaril] Allergy Verified 03/05/18 20:40 trifluoperazine Allergy Verified 03/05/18 20:40 [From Stelazine] Vitals:: Vital Signs - 8 hr 10/05/18 19:45 Temp 97.7 F HR 80 RR 19 BP 130/76 O2 Sat % 98 ED Review of Systems - Review of Systems General/Constitutional: No fever, No chills Skin: No rash Head: No headache Eyes: No pain ENT: No nasal drainage Neck: No neck pain Cardio Vascular: No chest pain GI: No nausea, No vomiting Musculoskeletal: No bone or joint pain Psychiatric: Prior psych history Neurological: No focal symptoms ED Past Medical History - Past Medical History Past Medical History: Other (ANEMIA, ARTHRITIS, MUSCLE WEAKNESS, UTI) Social History: Non Smoker, No Alcohol, No Drug Use Psychiatricy History: Schizophrenia, Bipolar, Other (Anxiety) Family Medical History - Family Member Mother History Unknown: Yes Ethnicity: Unknown Living Status: Unknown Hx Family Cancer: (unknown) Hx Family Coronary Artery Disease: (unknown) Hx Family Congestive Heart Failure: (unknown) Hx Family Hypertension: (unknown) Hx Family Stroke: (unknown) Hx Family Diabetes: (unknown) Hx Family Seizures: (unknown) Hx Family Dementia: (unknown) Hx Family AIDS: (unknown) Hx Family HIV: No Hx Family COPD: (unknown) Hx Family Hepatitis: (unknown) Hx Family Psychiatric Problems: (unknown) Hx Family Tuberculosis: (unknown) ED Physical Exam - Physical Examination General/Constitutional: Awake, Alert Head: Atraumatic Eyes: PERRL, EOMI Skin: No skin lesions ENMT: Nasal exam nl Neck: No nuchal rigidity Respiratory: Clear to Auscultation Cardio Vascular: RRR, No murmur, gallop, rubs, NL S1 S2 GI: No tenderness/rebounding/guarding Extremities: normal strength in all extremities Neuro/Psych: Alert/oriented (x 1), No focal deficits ED Labs/Radiology/EKG Results - Lab Results Results: Laboratory Last Values WBC 10.7 Th/cmm (4.8-10.8) 10/05/18 20:50 RBC 4.29 Mil/cmm (3.80-5.10) 10/05/18 20:50 Hgb 12.8 gm/dL (12-16) 10/05/18 20:50 Hct 37.6 % (41.0-60) L 10/05/18 20:50 MCV 87.8 fl (81-100) 10/05/18 20:50 MCH 29.8 pg (27.0-31.0) 10/05/18 20:50 MCHC Differential 34.0 pg (28.0-36.0) 10/05/18 20:50 RDW 13.4 % (11.5-20.0) 10/05/18 20:50 Plt Count 397 Th/cmm (150-400) 10/05/18 20:50 MPV 7.1 fl 10/05/18 20:50 Neutrophils % 77.0 % (40.0-80.0) 10/05/18 20:50 Lymphocytes % 17.2 % (20.0-50.0) L 10/05/18 20:50 Monocytes % 4.7 % (2.0-10.0) 10/05/18 20:50 Eosinophils % 1.1 % (0.0-5.0) 10/05/18 20:50 Basophils % 0.0 % (0.0-2.0) 10/05/18 20:50 PT 10.4 SECONDS (9.5-11.5) 10/05/18 20:50 INR 1.00 (0.5-1.4) 10/05/18 20:50 PTT (Actin FS) 25.0 SECONDS (26.0-38.0) L 10/05/18 20:50 Sodium 137 mEq/L (136-145) 10/05/18 20:50 Potassium 3.9 mEq/L (3.5-5.1) 10/05/18 20:50 Chloride 105 mEq/L (98-107) 10/05/18 20:50 Carbon Dioxide 24.3 mEq/L (21.0-31.0) 10/05/18 20:50 Anion Gap 11.6 (7.0-16.0) 10/05/18 20:50 BUN 13 mg/dL (7-25) 10/05/18 20:50 Creatinine 0.6 mg/dL (0.6-1.2) 10/05/18 20:50 Est GFR ( Amer) > 60.0 ml/min (>90) 10/05/18 20:50 Est GFR (Non-Af Amer) > 60.0 ml/min 10/05/18 20:50 BUN/Creatinine Ratio 21.7 10/05/18 20:50 Glucose 122 mg/dL (70-105) H 10/05/18 20:50 Calcium 9.8 mg/dL (8.6-10.3) 10/05/18 20:50 Total Bilirubin 0.3 mg/dL (0.3-1.0) 10/05/18 20:50 AST 18 U/L (13-39) 10/05/18 20:50 ALT 21 U/L (7-52) 10/05/18 20:50 Alkaline Phosphatase 87 U/L (34-104) 10/05/18 20:50 Troponin I < 0.01 ng/mL (0.01-0.05) L 10/05/18 20:50 B-Natriuretic Peptide 16.4 pg/mL (5.0-100.0) 10/05/18 20:50 Total Protein 7.1 gm/dL (6.0-8.3) 10/05/18 20:50 Albumin 4.1 gm/dL (3.7-5.3) 10/05/18 20:50 Globulin 3.0 gm/dL 10/05/18 20:50 Albumin/Globulin Ratio 1.4 (1.0-1.8) 10/05/18 20:50 Triglycerides 166 mg/dL (<150) H 10/05/18 19:30 Cholesterol 161 mg/dL (<200) 10/05/18 19:30 LDL Cholesterol Direct 93 mg/dL (75-193) 10/05/18 19:30 HDL Cholesterol 41 mg/dL (23-92) 10/05/18 19:30 TSH 0.43 uIU/ml (0.34-5.60) 10/05/18 20:50 - Radiology Results Results: CXR: no acute abnormalities, question generous heart size - EKG Interpretations EKG Time:: 20:54 Rate & Rhythm: 70 bpm, sinus rhythm Erwin: normal P axis Intervals: Abnormal P-wave progression, early transition ED Assessment - Assessment General Assessment: Arthritis Muscle weakness Bipolar disorder Schizophrenia Psychosis Assessment/Comments:: CBC, CMP, PT/PTT, BNP, Troponin, TSH, RPR, UA CXR, EKG Admit to [facility] for further evaluation and management ED Septic Shock - . Is Septic Shock (SBP<90, OR Lactate>4 mmol\\L) present?: No - <6hrs of presentation: Vital Signs: Vital Signs - 8 hr 10/05/18 19:45 Temp 97.7 F HR 80 RR 19 BP 130/76 O2 Sat % 98 ED Reassessment (Disposition) - Reassessment Reassessment Condition:: Unchanged - Patient Disposition Discharge/Transfer:: [facility] w/in this hosp Admitting Medical Physician:: Ghassan Ha Admitting Psych Physician:: Gladys Day
[2018-10-05 21:08] LABS: % EOSINOPHILS 1.1 % (0.0-5.0); % LYMPHOCYTES 17.2 % (20.0-50.0); % MONOCYTES 4.7 % (2.0-10.0); EOSINOPHILE ABSOLUTE 0.1 Th/cmm (0.1-0.4); HEMATOCRIT 37.6 % (41.0-60); HEMOGLOBIN 12.8 gm/dL (12-16); LYMPHOCYTE ABSOLUTE 1.8 Th/cmm (1.5-3.0); MEAN CELL VOLUME 87.8 fl (81-100); MEAN CORPUSCULAR HEMOGLOBIN 29.8 pg (27.0-31.0); MONOCYTE ABSOLUTE 0.5 Th/cmm (0.3-1.0); NEUTROPHILE ABSOLUTE 8.3 Th/cmm (1.8-8.0); PLATELET COUNT 397 Th/cmm (150-400); RED BLOOD COUNT 4.29 Mil/cmm (3.80-5.10); RED CELL DISTRIBUTION WIDTH 13.4 % (11.5-20.0); WHITE BLOOD COUNT 10.7 Th/cmm (4.8-10.8)
[2018-10-05 21:20] LABS: ALB/GLOB RATIO 1.4 (1.0-1.8); ALBUMIN 4.1 gm/dL (3.7-5.3); ALKALINE PHOSPHATASE 87 U/L (34-104); ANION GAP 11.6 (7.0-16.0); BILIRUBIN,TOTAL 0.3 mg/dL (0.3-1.0); BUN - UREA NITROGEN 13 mg/dL (7-25); CALCIUM SERUM 9.8 mg/dL (8.6-10.3); CARBON DIOXIDE 24.3 mEq/L (21.0-31.0); CHLORIDE 105 mEq/L (98-107); CREATININE - SERUM 0.6 mg/dL (0.6-1.2); GFR AFRICAN-AMERICAN > 60.0 ml/min (>90); GFR NON AFRICAN-AMERICAN > 60.0 ml/min; GLUCOSE 122 mg/dL (70-105); POTASSIUM SERUM 3.9 mEq/L (3.5-5.1); SGOT 18 U/L (13-39); SGPT/ALT 21 U/L (7-52); SODIUM SERUM 137 mEq/L (136-145); TOTAL PROTEIN,SERUM 7.1 gm/dL (6.0-8.3)
[2018-10-05 22:57] VITALS: BP 126/69
[2018-10-05] MEDS ORDERED: Maalox 30 mL Cup PO PRN (22:57)
[2018-10-05] MEDS ORDERED: Magnesium Hydroxide (MOM) 30 mL UDC PO PRN (22:57)
[2018-10-05 23:19] LABS: CHOLESTEROL 161 mg/dL (<200); HDL -HIGH DENSITY LIPOPROTEIN 41 mg/dL (23-92); TRIGLYCERIDES 166 mg/dL (<150)
[2018-10-06] MEDS ORDERED: Magnesium Hydroxide (MOM) 30 mL UDC PO PRN (00:57)
--- NOTE | 2018-10-06 08:43 | Diagnostic Imaging Report ---
Portable chest x-ray HISTORY: Shortness of breath The heart size is difficult to assess with portable technique in a poor inspiration, but may be generous. Atherosclerotic calcification seen within the aorta. No acute focal pulmonary processes. IMPRESSION: 1. No acute abnormalities 2. Question generous heart size along with atherosclerotic vascular changes
[2018-10-06] MEDS: Multivitamin Tab PO SCH (08:47)
--- NOTE | 2018-10-06 12:05 | History & Physical ---
ADMIT DATE: 10/05/2018 IDENTIFYING INFORMATION: The patient is a 63-year-old female. CHIEF COMPLAINT: "I refused to do sex act HISTORY OF PRESENT ILLNESS: The patient referred from [place] because of agitation and aggressive, fighting with staff and other residents says she is . The patient was not a very good historian. She was rambling with a history of schizophrenia and bipolar disorder. She believed that they were asking her to have sex over at [facility] and she refused. She said she sleeps well. She eats well. She denies any intent to harm herself or anyone. Denies any visual symptoms or paranoia. She was not a very good historian. PAST PSYCHIATRIC HISTORY: The patient with multiple prior hospitalizations has been seeing her at [facility] for the past few months. The patient denies prior suicide attempt. MEDICAL HISTORY: ALLERGIES: THE PATIENT IS ALLERGIC TO FLUPHENAZINE, and THIORIDAZINE, and TRIFLUOPERAZINE. The patient has hypercholesterolemia. The patient has been on olanzapine 5 mg twice a day. FAMILY AND SOCIAL HISTORY: Basically, she is . She says she has 4 children. She said three of them got killed 5 years ago; however, she was unable to explain to me how. The patient reports she has seventh grade education. 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 She denies family psychiatric disorder. MENTAL STATUS EXAMINATION: The patient is appropriately dressed, not very well groomed. She was rambling. She was unable to tell me the date. She said she did not keep with it. She knew she was in [facility] because she believes she is here because she refused to have sex was unable to tell me with whom. She denies any auditory or visual symptoms, but she was delusional, unable to make safe plan for self-care. She sleeps well, eats well. She has a visual hallucination, but she was paranoid about the staff. She reports she needed to leave this place. She was unable to participate in memory testing because of her delusions and rambling speech. She said she sleeps well, eats well. Her insight and judgment are questionable. IMPRESSION: Bipolar disorder with psychosis. MEDICAL DIAGNOSES: As per medical doctor. INITIAL TREATMENT PLAN: The patient will continue with the Zyprexa. We will adjust medication as needed. We will do group therapy, milieu therapy, and individual therapy. ESTIMATED LENGTH OF STAY: 3-7 days. DISCHARGE CRITERIA: Decreasing psychosis, agitation. After discharge, outpatient treatment. [facility]# [id number] TORRI
[2018-10-06] MEDS ORDERED: Non-Formulary Item 1 EA (Melatonin [Melatonin] 3 MG) PO SCH (21:00)
--- NOTE | 2018-10-06 21:01 | History & Physical ---
ADMIT DATE: 10/05/2018 HISTORY OF PRESENT ILLNESS: The patient is a 63-year-old female with long history of hyperlipidemia, insomnia, degenerative joint disease, psychosis, admitted to [facility] under Dr. Day's service for evaluation and treatment. The patient denies any chest pain, shortness of breath, nausea, vomiting, fever or chills. PAST MEDICAL HISTORY: Hyperlipidemia, degenerative joint disease, insomnia, and psychosis. SURGICAL HISTORY: No recent surgery. ALLERGIES: ALLERGY TO FLUPHENAZINE, THIORIDAZINE, and TRIFLUOPERAZINE. SOCIAL HISTORY: No smoking, no alcohol, no drug. FAMILY HISTORY: Noncontributory. MEDICATIONS: Follow admission reconciliation. REVIEW OF SYSTEMS: RENAL SYSTEM: No history of chronic renal disorder. CARDIOVASCULAR SYSTEM: No coronary artery disease. ENDOCRINE SYSTEM: No diabetes or thyroid problem. GASTROINTESTINAL SYSTEM: No upper or lower GI bleed. NEUROLOGICAL SYSTEM: No seizure disorder. SKELETOMUSCULAR SYSTEM: No muscular dystrophy. HEMATOLOGICAL SYSTEM: No bleeding tendencies. RESPIRATORY SYSTEM: No asthma. GENITOURINARY: No dysuria or hematuria. PHYSICAL EXAMINATION: GENERAL: She is awake, alert, mildly confused. VITAL SIGNS: Temperature 98.4, heart rate 72, blood pressure 102/65. HEENT: Normocephalic. Pupils are reacting, equal to light and accommodation. Sclerae clear. NECK: Supple. Negative for lymphadenopathy, JVD or bruit. CHEST: Entry of air bilaterally normal. No rhonchi or wheezing. HEART: S1, S2 normal. No gallop rhythm. ABDOMEN: Soft, bowel sounds positive. EXTREMITIES: No edema. NEUROLOGIC: She is awake, not coherent. No focal motor or sensory deficits. LABORATORY DATA: White blood cell 10.7, hemoglobin 12.8, hematocrit 37.6, platelet is 397. Sodium 137, potassium 3.9, BUN 13, creatinine 0.8. Triglycerides 166. ASSESSMENT: 1. Hyperlipidemia. 2. Insomnia. 3. Degenerative joint disease. 4. Psychosis. PLAN: The patient in the hospital under Dr. Day's service. Medical problem addressed during hospitalization is psychosis. Medical problems addressed at discharge are hyperlipidemia, degenerative joint disease and insomnia. The patient is medically stable for activity. Thank you, Dr. Day, for asking me to see your patient. The patient is a full code. JOB# [id number]
[2018-10-06] MEDS: Atorvastatin Calcium 10 MG TAB PO SCH (21:08)
[2018-10-07 07:10] LABS: A1C 6.1 % (4.8-5.6)
[2018-10-07] MEDS: Multivitamin Tab PO SCH (08:22)
[2018-10-07] MEDS ORDERED: Non-Formulary Item 1 EA (Cranberry Fruit [Cranberry] 450 MG) PO SCH (09:00)
--- NOTE | 2018-10-07 17:41 | Internal Medicine Prog Note ---
Internal Medicine Subjective - Subjective Service Date: 10/07/18 Patient seen and examined:: with staff (SHE IS CONFUSED) Patient is:: awake, verbal, confused Per staff patient has:: no adverse event Internal Medicine Objective - Results Result Diagrams: 10/05/18 20:50 10/05/18 20:50 Recent Labs: Laboratory Last Values WBC 10.7 Th/cmm (4.8-10.8) 10/05/18 20:50 RBC 4.29 Mil/cmm (3.80-5.10) 10/05/18 20:50 Hgb 12.8 gm/dL (12-16) 10/05/18 20:50 Hct 37.6 % (41.0-60) L 10/05/18 20:50 MCV 87.8 fl (81-100) 10/05/18 20:50 MCH 29.8 pg (27.0-31.0) 10/05/18 20:50 MCHC Differential 34.0 pg (28.0-36.0) 10/05/18 20:50 RDW 13.4 % (11.5-20.0) 10/05/18 20:50 Plt Count 397 Th/cmm (150-400) 10/05/18 20:50 MPV 7.1 fl 10/05/18 20:50 Neutrophils % 77.0 % (40.0-80.0) 10/05/18 20:50 Lymphocytes % 17.2 % (20.0-50.0) L 10/05/18 20:50 Monocytes % 4.7 % (2.0-10.0) 10/05/18 20:50 Eosinophils % 1.1 % (0.0-5.0) 10/05/18 20:50 Basophils % 0.0 % (0.0-2.0) 10/05/18 20:50 PT 10.4 SECONDS (9.5-11.5) 10/05/18 20:50 INR 1.00 (0.5-1.4) 10/05/18 20:50 PTT (Actin FS) 25.0 SECONDS (26.0-38.0) L 10/05/18 20:50 Sodium 137 mEq/L (136-145) 10/05/18 20:50 Potassium 3.9 mEq/L (3.5-5.1) 10/05/18 20:50 Chloride 105 mEq/L (98-107) 10/05/18 20:50 Carbon Dioxide 24.3 mEq/L (21.0-31.0) 10/05/18 20:50 Anion Gap 11.6 (7.0-16.0) 10/05/18 20:50 BUN 13 mg/dL (7-25) 10/05/18 20:50 Creatinine 0.6 mg/dL (0.6-1.2) 10/05/18 20:50 Est GFR ( Amer) > 60.0 ml/min (>90) 10/05/18 20:50 Est GFR (Non-Af Amer) > 60.0 ml/min 10/05/18 20:50 BUN/Creatinine Ratio 21.7 10/05/18 20:50 Glucose 122 mg/dL (70-105) H 10/05/18 20:50 Calcium 9.8 mg/dL (8.6-10.3) 10/05/18 20:50 Total Bilirubin 0.3 mg/dL (0.3-1.0) 10/05/18 20:50 AST 18 U/L (13-39) 10/05/18 20:50 ALT 21 U/L (7-52) 10/05/18 20:50 Alkaline Phosphatase 87 U/L (34-104) 10/05/18 20:50 Troponin I < 0.01 ng/mL (0.01-0.05) L 10/05/18 20:50 B-Natriuretic Peptide 16.4 pg/mL (5.0-100.0) 10/05/18 20:50 Total Protein 7.1 gm/dL (6.0-8.3) 10/05/18 20:50 Albumin 4.1 gm/dL (3.7-5.3) 10/05/18 20:50 Globulin 3.0 gm/dL 10/05/18 20:50 Albumin/Globulin Ratio 1.4 (1.0-1.8) 10/05/18 20:50 Triglycerides 166 mg/dL (<150) H 10/05/18 19:30 Cholesterol 161 mg/dL (<200) 10/05/18 19:30 LDL Cholesterol Direct 93 mg/dL (75-193) 10/05/18 19:30 HDL Cholesterol 41 mg/dL (23-92) 10/05/18 19:30 TSH 0.43 uIU/ml (0.34-5.60) 10/05/18 20:50 RPR NONREACTIVE (NONREACTIVE) 10/05/18 20:50 - Physical Exam Vitals and I&O: Vital Signs Temp 97.0 F 10/07/18 14:00 Pulse 79 10/07/18 14:00 Resp 20 10/07/18 14:00 BP 139/65 10/07/18 14:00 Pulse Ox 95 10/07/18 14:00 Active Medications: Current Medications Acetaminophen (Tylenol) 650 mg PO Q4HR PRN PRN Reason: Mild Pain / Temp above 100 Stop: 12/04/18 22:56 Al Hydrox/Mg Hydrox/Simethicone (Maalox) 30 ml PO Q4HR PRN PRN Reason: GI DISTRESS Stop: 12/04/18 22:56 Atorvastatin Calcium (Lipitor) 10 mg PO HS KATINA; Protocol Stop: 12/05/18 20:59 Last Admin: 10/06/18 21:08 Dose: 10 mg Docusate Sodium (Colace) 100 mg PO BID KAITNA Stop: 12/05/18 08:59 Last Admin: 10/07/18 17:01 Dose: 100 mg Lorazepam (Ativan) 0.5 mg PO Q4HR PRN; Protocol PRN Reason: Anxiety Stop: 11/04/18 22:56 Magnesium Hydroxide (Milk Of Magnesia) 30 ml PO HS PRN PRN Reason: Constipation Stop: 12/05/18 00:56 Multivitamins/Vitamin C (Theragran) 1 tab PO DAILY KATINA Stop: 12/05/18 08:59 Last Admin: 10/07/18 08:22 Dose: 1 tab Olanzapine (Zyprexa) 5 mg PO BID KATINA; Protocol Stop: 12/05/18 08:59 Last Admin: 10/07/18 17:01 Dose: 5 mg Zolpidem Tartrate (Ambien) 5 mg PO HS PRN PRN Reason: Insomnia Stop: 12/04/18 22:56 General: demented HEENT: NC/AT, PERRLA, EOMI, anicteric sclerae, throat clear Neck: Supple, No JVD, No thyromegaly, +2 carotid pulse wo bruit, No LAD Lungs: CTAB Cardiovascular: RRR, Normal S1, Normal S2, without murmur Abdomen: soft, non-tender, non-distended Extremities: clear Neurological: no change Internal Medicine Assmt/Plan - Assessment Assessment: 1.HYPERLIPIDEMIA. 2.INSOMNIA. 3.DJD. 4.PSYCHSIS - Plan Plan: CONTINUE ON CURRENT MEDICATION AND DIET.
[2018-10-07] MEDS: Atorvastatin Calcium 10 MG TAB PO SCH (20:58)
--- NOTE | 2018-10-07 23:24 | Progress Notes ---
DATE: 10/07/2018 Case was discussed with staff of the patient, reviewed records. The patient continues to be irritable, manic, rambling speech, very intrusive, hard to redirect, unpredictable, impulsive, needing redirection. No side effects with the medication, no sedation, no nausea, no extrapyramidal symptoms. I increased her Zyprexa yesterday 5 mg twice a day. We will continue outpatient group therapy, milieu therapy, adjust medication as needed. JOB# [id number]
--- NOTE | 2018-10-07 23:30 | Progress Notes ---
DATE: 10/07/[address] Nicholas. SUBJECTIVE: Case was discussed with staff of the patient, reviewed records. This is an 84-year-old female, who was admitted on 10/01/2018 because of agitation and confusion. The patient has been irritable, anxious, depressed, sleeps well, and eats well, no motivation, wants to be left alone confused, unable to answer questions most of the time. The patient continues to be confused, unpredictable, impulsive, and needing redirection. She has been compliant with the medication with no side effects, no sedation, and no nausea. She is on Namenda 10 mg twice a day and multivitamins. We will continue to work with the patient in group therapy, milieu therapy, and adjust the medications as needed. JOB# [id number]
[2018-10-08] MEDS: Multivitamin Tab PO SCH (08:22)
--- NOTE | 2018-10-08 18:06 | Internal Medicine Prog Note ---
Internal Medicine Subjective - Subjective Service Date: 10/08/18 Patient seen and examined:: without staff (SHE IS NOT EATING WELL) Patient is:: awake, verbal, confused Per staff patient has:: no adverse event Internal Medicine Objective - Results Result Diagrams: 10/05/18 20:50 10/05/18 20:50 Recent Labs: Laboratory Last Values WBC 10.7 Th/cmm (4.8-10.8) 10/05/18 20:50 RBC 4.29 Mil/cmm (3.80-5.10) 10/05/18 20:50 Hgb 12.8 gm/dL (12-16) 10/05/18 20:50 Hct 37.6 % (41.0-60) L 10/05/18 20:50 MCV 87.8 fl (81-100) 10/05/18 20:50 MCH 29.8 pg (27.0-31.0) 10/05/18 20:50 MCHC Differential 34.0 pg (28.0-36.0) 10/05/18 20:50 RDW 13.4 % (11.5-20.0) 10/05/18 20:50 Plt Count 397 Th/cmm (150-400) 10/05/18 20:50 MPV 7.1 fl 10/05/18 20:50 Neutrophils % 77.0 % (40.0-80.0) 10/05/18 20:50 Lymphocytes % 17.2 % (20.0-50.0) L 10/05/18 20:50 Monocytes % 4.7 % (2.0-10.0) 10/05/18 20:50 Eosinophils % 1.1 % (0.0-5.0) 10/05/18 20:50 Basophils % 0.0 % (0.0-2.0) 10/05/18 20:50 PT 10.4 SECONDS (9.5-11.5) 10/05/18 20:50 INR 1.00 (0.5-1.4) 10/05/18 20:50 PTT (Actin FS) 25.0 SECONDS (26.0-38.0) L 10/05/18 20:50 Sodium 137 mEq/L (136-145) 10/05/18 20:50 Potassium 3.9 mEq/L (3.5-5.1) 10/05/18 20:50 Chloride 105 mEq/L (98-107) 10/05/18 20:50 Carbon Dioxide 24.3 mEq/L (21.0-31.0) 10/05/18 20:50 Anion Gap 11.6 (7.0-16.0) 10/05/18 20:50 BUN 13 mg/dL (7-25) 10/05/18 20:50 Creatinine 0.6 mg/dL (0.6-1.2) 10/05/18 20:50 Est GFR ( Amer) > 60.0 ml/min (>90) 10/05/18 20:50 Est GFR (Non-Af Amer) > 60.0 ml/min 10/05/18 20:50 BUN/Creatinine Ratio 21.7 10/05/18 20:50 Glucose 122 mg/dL (70-105) H 10/05/18 20:50 Calcium 9.8 mg/dL (8.6-10.3) 10/05/18 20:50 Total Bilirubin 0.3 mg/dL (0.3-1.0) 10/05/18 20:50 AST 18 U/L (13-39) 10/05/18 20:50 ALT 21 U/L (7-52) 10/05/18 20:50 Alkaline Phosphatase 87 U/L (34-104) 10/05/18 20:50 Troponin I < 0.01 ng/mL (0.01-0.05) L 10/05/18 20:50 B-Natriuretic Peptide 16.4 pg/mL (5.0-100.0) 10/05/18 20:50 Total Protein 7.1 gm/dL (6.0-8.3) 10/05/18 20:50 Albumin 4.1 gm/dL (3.7-5.3) 10/05/18 20:50 Globulin 3.0 gm/dL 10/05/18 20:50 Albumin/Globulin Ratio 1.4 (1.0-1.8) 10/05/18 20:50 Triglycerides 166 mg/dL (<150) H 10/05/18 19:30 Cholesterol 161 mg/dL (<200) 10/05/18 19:30 LDL Cholesterol Direct 93 mg/dL (75-193) 10/05/18 19:30 HDL Cholesterol 41 mg/dL (23-92) 10/05/18 19:30 TSH 0.43 uIU/ml (0.34-5.60) 10/05/18 20:50 RPR NONREACTIVE (NONREACTIVE) 10/05/18 20:50 - Physical Exam Vitals and I&O: Vital Signs Temp 97.1 F 10/08/18 14:00 Pulse 80 10/08/18 14:00 Resp 20 10/08/18 14:00 BP 119/58 10/08/18 14:00 Pulse Ox 97 10/08/18 14:00 Intake & Output 10/07/18 10/08/18 10/08/18 18:59 06:59 18:59 Intake Total 1200 Balance 1200 Intake: Oral 1200 Other: # Voids 3 # Bowel Movements 1 Active Medications: Current Medications Acetaminophen (Tylenol) 650 mg PO Q4HR PRN PRN Reason: Mild Pain / Temp above 100 Stop: 12/04/18 22:56 Al Hydrox/Mg Hydrox/Simethicone (Maalox) 30 ml PO Q4HR PRN PRN Reason: GI DISTRESS Stop: 12/04/18 22:56 Atorvastatin Calcium (Lipitor) 10 mg PO HS KATINA; Protocol Stop: 12/05/18 20:59 Last Admin: 10/07/18 20:58 Dose: 10 mg Docusate Sodium (Colace) 100 mg PO BID KATINA Stop: 12/05/18 08:59 Last Admin: 10/08/18 16:52 Dose: 100 mg Lorazepam (Ativan) 0.5 mg PO Q4HR PRN; Protocol PRN Reason: Anxiety Stop: 11/04/18 22:56 Magnesium Hydroxide (Milk Of Magnesia) 30 ml PO HS PRN PRN Reason: Constipation Stop: 12/05/18 00:56 Multivitamins/Vitamin C (Theragran) 1 tab PO DAILY KATINA Stop: 12/05/18 08:59 Last Admin: 10/08/18 08:22 Dose: 1 tab Olanzapine (Zyprexa) 7.5 mg PO BID KATINA; Protocol Stop: 12/07/18 16:59 Last Admin: 10/08/18 16:53 Dose: 7.5 mg Zolpidem Tartrate (Ambien) 5 mg PO HS PRN PRN Reason: Insomnia Stop: 12/04/18 22:56 General: demented HEENT: NC/AT, PERRLA, EOMI, anicteric sclerae, throat clear Neck: Supple, No JVD, No thyromegaly, +2 carotid pulse wo bruit, No LAD Lungs: CTAB Cardiovascular: RRR, Normal S1, Normal S2, without murmur Abdomen: soft, non-tender, non-distended Extremities: clear Neurological: no change Internal Medicine Assmt/Plan - Assessment Assessment: 1.HYPERLIPIDEMIA. 2.INSOMNIA. 3.DJD. 4.PSYCHSIS - Plan Plan: CONTINUE ON CURRENT MEDICATION AND DIET. Nutritional Asmnt/Malnutr-PDOC - Dietary Evaluation Malnutrition Findings (Please click <Entered> for more info): Nutritional Asmnt/Malnutrition Start: 10/08/18 15: 30 Text: Status: Complete Freq: Protocol: Document 10/08/18 15:38 RHINA (Rec: 10/08/18 15:40 [email or web address]) Nutritional Asmnt/Malnutrition Patient General Information Nutritional Screening Moderate Risk Diagnosis Psychosis Pertinent Medical Hx/Surgical Hx Hypercholesterolemia Subjective Information Pt is a 63-year-old female admitted on 10/05 c/o agitation . Per Meal/Nutrition Activity Record, Pt PO intake 100% meals on 10/07. HT: 411 WT: 146 LB (66.36 kg) ADJ BW: 52.46 kg BMI: 29.49 (Overweight) GI: WNL, Soft, Non-Tender BM: 10/08 x1 I/O: 1200/Not Noted Skin: WNL, Intact Suresh: 22 Diet Order: Fat controlled 50 gm Estimated Energy Needs: ( Overweight, ADJ BW) 7503-8115 kcals (20-25 kcals/ kg) 42-47g Pro (0.8-0.9/kg) 4213-0354 ml (25-30ml/kg) Pt is eating 100% of meals Per Meal/Nutrition Activity Record. Dietary is currently providing an estimated 1977 kcals and 79 gm Pro to meet 100% kcal and 100+% Pro needs. Current Diet Order/ Nutrition Support Fat controlled 50 gm Pertinent Medications Maalox (PRN), Lipitor, Colace, MOM (PRN), Theragran Pertinent Labs 10/05: Hgb/Hct 12.8/37.6, Glucose 122 Nutritional Hx/Data Height 1.5 m Height (Calculated Centimeters) 149.9 Current Weight (lbs) 66.224 kg Weight (Calculated Kilograms) 66.2 Weight (Calculated Grams) 25556.5 [place] Body Weight 43.2 kg % [place] Body Weight 154 Body Mass Index (BMI) 29.5 Weight Status Overweight GI Symptoms GI Symptoms None Last BM 10/08 x1 Skin Integrity/Comment: WNL, Intact Suresh: 22 Current %PO Good (75-100%) Estimated Nutritional Goals BEE in Kcals: Adj wt of IBW Calories/Kcals/Kg 20-25 Kcals Calculated 8836-8343 Protein: Adj wt of IBW Protein g/k.8-0.9 Protein Calculated 42-47 Fluid: ml 7008-1085 ml (25-30ml/kg) Nutritional Problem No current Nutrition Prob Problem N/A Etiology N/A Signs/Symptoms: N/A Malnutrition Related to Morbid Obesity Malnutrition related to morbid obesity No Intervention/Recommendation Comments 1.Continue with Fat controlled 50 gm diet as ordered. Expected Outcomes/Goals Expected Outcomes/Goals 1.PO intake to continue to meet 75% of nutritional needs. 2.Monitor PO intake, wt, nutrition related labs, and skin integrity. 3.F/U as low risk in 7 days,
[2018-10-08] MEDS: Atorvastatin Calcium 10 MG TAB PO SCH (20:51)
--- NOTE | 2018-10-09 00:53 | Progress Notes ---
DATE: 10/08/2018 Case was discussed with staff of the patient, reviewed records. The patient continues to be delusional. Continues to be manic, irritable. She is sleeping better, eating better. She is a little bit easier to redirect. No side effects with the medication, no sedation, no nausea, no extrapyramidal symptoms. I will be increasing her Zyprexa to 7.5 mg twice a day to improve her manic, delusional behavior and we will continue to work with the patient in group therapy, milieu therapy, adjust the medication as needed. JOB# [id number]
[2018-10-09] MEDS: Multivitamin Tab PO SCH (08:50)
--- NOTE | 2018-10-09 15:19 | Progress Notes ---
DATE: 10/09/2018 Case was discussed with staff of the patient, reviewed records. The patient continues to be intrusive, continues to have poor insight, unpredictable, impulsive, manicky, irritable. I have increased her Zyprexa dose yesterday to 7.5 mg twice a day. No side effects with the medication, no sedation, no nausea, no extrapyramidal symptoms. We will continue to work with the patient in group therapy, milieu therapy, adjust the medication as needed. JOB# [id number]
--- NOTE | 2018-10-09 15:22 | General Progress Note ---
Subjective - Review of Systems Service Date: 10/09/18 Subjective: resting comfortably no distress Objective - Results Result Diagrams: 10/05/18 20:50 10/05/18 20:50 Recent Labs: Laboratory Last Values WBC 10.7 Th/cmm (4.8-10.8) 10/05/18 20:50 RBC 4.29 Mil/cmm (3.80-5.10) 10/05/18 20:50 Hgb 12.8 gm/dL (12-16) 10/05/18 20:50 Hct 37.6 % (41.0-60) L 10/05/18 20:50 MCV 87.8 fl (81-100) 10/05/18 20:50 MCH 29.8 pg (27.0-31.0) 10/05/18 20:50 MCHC Differential 34.0 pg (28.0-36.0) 10/05/18 20:50 RDW 13.4 % (11.5-20.0) 10/05/18 20:50 Plt Count 397 Th/cmm (150-400) 10/05/18 20:50 MPV 7.1 fl 10/05/18 20:50 Neutrophils % 77.0 % (40.0-80.0) 10/05/18 20:50 Lymphocytes % 17.2 % (20.0-50.0) L 10/05/18 20:50 Monocytes % 4.7 % (2.0-10.0) 10/05/18 20:50 Eosinophils % 1.1 % (0.0-5.0) 10/05/18 20:50 Basophils % 0.0 % (0.0-2.0) 10/05/18 20:50 PT 10.4 SECONDS (9.5-11.5) 10/05/18 20:50 INR 1.00 (0.5-1.4) 10/05/18 20:50 PTT (Actin FS) 25.0 SECONDS (26.0-38.0) L 10/05/18 20:50 Sodium 137 mEq/L (136-145) 10/05/18 20:50 Potassium 3.9 mEq/L (3.5-5.1) 10/05/18 20:50 Chloride 105 mEq/L (98-107) 10/05/18 20:50 Carbon Dioxide 24.3 mEq/L (21.0-31.0) 10/05/18 20:50 Anion Gap 11.6 (7.0-16.0) 10/05/18 20:50 BUN 13 mg/dL (7-25) 10/05/18 20:50 Creatinine 0.6 mg/dL (0.6-1.2) 10/05/18 20:50 Est GFR ( Amer) > 60.0 ml/min (>90) 10/05/18 20:50 Est GFR (Non-Af Amer) > 60.0 ml/min 10/05/18 20:50 BUN/Creatinine Ratio 21.7 10/05/18 20:50 Glucose 122 mg/dL (70-105) H 10/05/18 20:50 Calcium 9.8 mg/dL (8.6-10.3) 10/05/18 20:50 Total Bilirubin 0.3 mg/dL (0.3-1.0) 10/05/18 20:50 AST 18 U/L (13-39) 10/05/18 20:50 ALT 21 U/L (7-52) 10/05/18 20:50 Alkaline Phosphatase 87 U/L (34-104) 10/05/18 20:50 Troponin I < 0.01 ng/mL (0.01-0.05) L 10/05/18 20:50 B-Natriuretic Peptide 16.4 pg/mL (5.0-100.0) 10/05/18 20:50 Total Protein 7.1 gm/dL (6.0-8.3) 10/05/18 20:50 Albumin 4.1 gm/dL (3.7-5.3) 10/05/18 20:50 Globulin 3.0 gm/dL 10/05/18 20:50 Albumin/Globulin Ratio 1.4 (1.0-1.8) 10/05/18 20:50 Triglycerides 166 mg/dL (<150) H 10/05/18 19:30 Cholesterol 161 mg/dL (<200) 10/05/18 19:30 LDL Cholesterol Direct 93 mg/dL (75-193) 10/05/18 19:30 HDL Cholesterol 41 mg/dL (23-92) 10/05/18 19:30 TSH 0.43 uIU/ml (0.34-5.60) 10/05/18 20:50 RPR NONREACTIVE (NONREACTIVE) 10/05/18 20:50 - Physical Exam Vitals and I&O: Vital Signs Temp 98.2 F 10/08/18 20:00 Pulse 77 10/08/18 20:00 Resp 20 10/09/18 08:00 BP 112/55 10/08/18 20:00 Pulse Ox 94 10/08/18 20:00 Intake & Output 10/08/18 10/09/18 10/09/18 18:59 06:59 18:59 Intake Total 900 240 Balance 900 240 Intake: Oral 900 240 Other: # Voids 3 1 # Bowel Movements 1 Active Medications: Current Medications Acetaminophen (Tylenol) 650 mg PO Q4HR PRN PRN Reason: Mild Pain / Temp above 100 Stop: 12/04/18 22:56 Al Hydrox/Mg Hydrox/Simethicone (Maalox) 30 ml PO Q4HR PRN PRN Reason: GI DISTRESS Stop: 12/04/18 22:56 Atorvastatin Calcium (Lipitor) 10 mg PO HS KATINA; Protocol Stop: 12/05/18 20:59 Last Admin: 10/08/18 20:51 Dose: 10 mg Docusate Sodium (Colace) 100 mg PO BID KATINA Stop: 12/05/18 08:59 Last Admin: 10/09/18 08:50 Dose: 100 mg Lorazepam (Ativan) 0.5 mg PO Q4HR PRN; Protocol PRN Reason: Anxiety Stop: 11/04/18 22:56 Magnesium Hydroxide (Milk Of Magnesia) 30 ml PO HS PRN PRN Reason: Constipation Stop: 12/05/18 00:56 Multivitamins/Vitamin C (Theragran) 1 tab PO DAILY KATINA Stop: 12/05/18 08:59 Last Admin: 10/09/18 08:50 Dose: 1 tab Olanzapine (Zyprexa) 7.5 mg PO BID KATINA; Protocol Stop: 12/07/18 16:59 Last Admin: 10/09/18 08:50 Dose: 7.5 mg Zolpidem Tartrate (Ambien) 5 mg PO HS PRN PRN Reason: Insomnia Stop: 12/04/18 22:56 General: No acute distress HEENT: PERRLA, EOMI Neck: Supple, JVD Cardiovascular: Regular rate, Normal S1, Normal S2 Lungs: Clear to auscultation Abdomen: Bowel sounds, Soft Assessment/Plan - Assessment Assessment: 1.HYPERLIPIDEMIA. 2.INSOMNIA. 3.DJD. 4.PSYCHSIS - Plan Plan: continue current treatment Nutritional Asmnt/Malnutr-PDOC - Dietary Evaluation Malnutrition Findings (Please click <Entered> for more info): Nutritional Asmnt/Malnutrition Start: 10/08/18 15: 30 Text: Status: Complete Freq: Protocol: Document 10/08/18 15:38 RHINA (Rec: 10/08/18 15:40 RHINA [email or web address]) Nutritional Asmnt/Malnutrition Patient General Information Nutritional Screening Moderate Risk Diagnosis Psychosis Pertinent Medical Hx/Surgical Hx Hypercholesterolemia Subjective Information Pt is a 63-year-old female admitted on 10/05 c/o agitation . Per Meal/Nutrition Activity Record, Pt PO intake 100% meals on 10/07. HT: 411 WT: 146 LB (66.36 kg) ADJ BW: 52.46 kg BMI: 29.49 (Overweight) GI: WNL, Soft, Non-Tender BM: 10/08 x1 I/O: 1200/Not Noted Skin: WNL, Intact Suresh: 22 Diet Order: Fat controlled 50 gm Estimated Energy Needs: ( Overweight, ADJ BW) 6033-7181 kcals (20-25 kcals/ kg) 42-47g Pro (0.8-0.9/kg) 3525-8536 ml (25-30ml/kg) Pt is eating 100% of meals Per Meal/Nutrition Activity Record. Dietary is currently providing an estimated 1977 kcals and 79 gm Pro to meet 100% kcal and 100+% Pro needs. Current Diet Order/ Nutrition Support Fat controlled 50 gm Pertinent Medications Maalox (PRN), Lipitor, Colace, MOM (PRN), Theragran Pertinent Labs 10/05: Hgb/Hct 12.8/37.6, Glucose 122 Nutritional Hx/Data Height 1.5 m Height (Calculated Centimeters) 149.9 Current Weight (lbs) 66.224 kg Weight (Calculated Kilograms) 66.2 Weight (Calculated Grams) 80820.5 [place] Body Weight 43.2 kg % [place] Body Weight 154 Body Mass Index (BMI) 29.5 Weight Status Overweight GI Symptoms GI Symptoms None Last BM 10/08 x1 Skin Integrity/Comment: WNL, Intact Suresh: 22 Current %PO Good (75-100%) Estimated Nutritional Goals BEE in Kcals: Adj wt of IBW Calories/Kcals/Kg 20-25 Kcals Calculated 0679-5354 Protein: Adj wt of IBW Protein g/k.8-0.9 Protein Calculated 42-47 Fluid: ml 6393-0666 ml (25-30ml/kg) Nutritional Problem No current Nutrition Prob Problem N/A Etiology N/A Signs/Symptoms: N/A Malnutrition Related to Morbid Obesity Malnutrition related to morbid obesity No Intervention/Recommendation Comments 1.Continue with Fat controlled 50 gm diet as ordered. Expected Outcomes/Goals Expected Outcomes/Goals 1.PO intake to continue to meet 75% of nutritional needs. 2.Monitor PO intake, wt, nutrition related labs, and skin integrity. 3.F/U as low risk in 7 days,
[2018-10-09] MEDS: Atorvastatin Calcium 10 MG TAB PO SCH (21:03)
[2018-10-10] MEDS: Multivitamin Tab PO SCH (08:17)
--- NOTE | 2018-10-10 15:35 | Progress Notes ---
DATE: 10/10/2018 Case was discussed with staff of the patient, reviewed records. The patient continues to be intrusive, continues to need redirection. In general, she is calmer. She is sleeping better, eating better. No side effects with the medication. No sedation. No nausea. No extrapyramidal symptoms. I will be adding Depakote to her medication to decrease her agitation, acting out behavior, manic symptoms. Discussed side effects and I will give her 250 mg 3 times a day. We will continue outpatient group therapy, milieu therapy, and adjust medication as needed. [facility]# [id number]
[2018-10-10] MEDS: Atorvastatin Calcium 10 MG TAB PO SCH (21:02)
--- NOTE | 2018-10-10 21:15 | General Progress Note ---
Subjective - Review of Systems Service Date: 10/10/18 Subjective: resting comfortably no distress Objective - Results Result Diagrams: 10/05/18 20:50 10/05/18 20:50 Recent Labs: Laboratory Last Values WBC 10.7 Th/cmm (4.8-10.8) 10/05/18 20:50 RBC 4.29 Mil/cmm (3.80-5.10) 10/05/18 20:50 Hgb 12.8 gm/dL (12-16) 10/05/18 20:50 Hct 37.6 % (41.0-60) L 10/05/18 20:50 MCV 87.8 fl (81-100) 10/05/18 20:50 MCH 29.8 pg (27.0-31.0) 10/05/18 20:50 MCHC Differential 34.0 pg (28.0-36.0) 10/05/18 20:50 RDW 13.4 % (11.5-20.0) 10/05/18 20:50 Plt Count 397 Th/cmm (150-400) 10/05/18 20:50 MPV 7.1 fl 10/05/18 20:50 Neutrophils % 77.0 % (40.0-80.0) 10/05/18 20:50 Lymphocytes % 17.2 % (20.0-50.0) L 10/05/18 20:50 Monocytes % 4.7 % (2.0-10.0) 10/05/18 20:50 Eosinophils % 1.1 % (0.0-5.0) 10/05/18 20:50 Basophils % 0.0 % (0.0-2.0) 10/05/18 20:50 PT 10.4 SECONDS (9.5-11.5) 10/05/18 20:50 INR 1.00 (0.5-1.4) 10/05/18 20:50 PTT (Actin FS) 25.0 SECONDS (26.0-38.0) L 10/05/18 20:50 Sodium 137 mEq/L (136-145) 10/05/18 20:50 Potassium 3.9 mEq/L (3.5-5.1) 10/05/18 20:50 Chloride 105 mEq/L (98-107) 10/05/18 20:50 Carbon Dioxide 24.3 mEq/L (21.0-31.0) 10/05/18 20:50 Anion Gap 11.6 (7.0-16.0) 10/05/18 20:50 BUN 13 mg/dL (7-25) 10/05/18 20:50 Creatinine 0.6 mg/dL (0.6-1.2) 10/05/18 20:50 Est GFR ( Amer) > 60.0 ml/min (>90) 10/05/18 20:50 Est GFR (Non-Af Amer) > 60.0 ml/min 10/05/18 20:50 BUN/Creatinine Ratio 21.7 10/05/18 20:50 Glucose 122 mg/dL (70-105) H 10/05/18 20:50 Calcium 9.8 mg/dL (8.6-10.3) 10/05/18 20:50 Total Bilirubin 0.3 mg/dL (0.3-1.0) 10/05/18 20:50 AST 18 U/L (13-39) 10/05/18 20:50 ALT 21 U/L (7-52) 10/05/18 20:50 Alkaline Phosphatase 87 U/L (34-104) 10/05/18 20:50 Troponin I < 0.01 ng/mL (0.01-0.05) L 10/05/18 20:50 B-Natriuretic Peptide 16.4 pg/mL (5.0-100.0) 10/05/18 20:50 Total Protein 7.1 gm/dL (6.0-8.3) 10/05/18 20:50 Albumin 4.1 gm/dL (3.7-5.3) 10/05/18 20:50 Globulin 3.0 gm/dL 10/05/18 20:50 Albumin/Globulin Ratio 1.4 (1.0-1.8) 10/05/18 20:50 Triglycerides 166 mg/dL (<150) H 10/05/18 19:30 Cholesterol 161 mg/dL (<200) 10/05/18 19:30 LDL Cholesterol Direct 93 mg/dL (75-193) 10/05/18 19:30 HDL Cholesterol 41 mg/dL (23-92) 10/05/18 19:30 TSH 0.43 uIU/ml (0.34-5.60) 10/05/18 20:50 RPR NONREACTIVE (NONREACTIVE) 10/05/18 20:50 - Physical Exam Vitals and I&O: Vital Signs Temp 97.4 F 10/10/18 20:25 Pulse 80 10/10/18 20:25 Resp 20 10/10/18 20:25 BP 122/77 10/10/18 20:25 Pulse Ox 95 10/10/18 20:25 Intake & Output 10/10/18 10/10/18 10/11/18 06:59 18:59 06:59 Intake Total 1200 120 Balance 1200 120 Intake: Oral 1200 120 Other: # Voids 4 1 # Bowel Movements 1 0 Active Medications: Current Medications Acetaminophen (Tylenol) 650 mg PO Q4HR PRN PRN Reason: Mild Pain / Temp above 100 Stop: 12/04/18 22:56 Al Hydrox/Mg Hydrox/Simethicone (Maalox) 30 ml PO Q4HR PRN PRN Reason: GI DISTRESS Stop: 12/04/18 22:56 Atorvastatin Calcium (Lipitor) 10 mg PO HS KATINA; Protocol Stop: 12/05/18 20:59 Last Admin: 10/10/18 21:02 Dose: 10 mg Divalproex Sodium (Depakote Dr) 250 mg PO Q8HR KATINA; Protocol Stop: 12/09/18 12:59 Last Admin: 10/10/18 21:02 Dose: 250 mg Docusate Sodium (Colace) 100 mg PO BID KATINA Stop: 12/05/18 08:59 Last Admin: 10/10/18 16:24 Dose: 100 mg Lorazepam (Ativan) 0.5 mg PO Q4HR PRN; Protocol PRN Reason: Anxiety Stop: 11/04/18 22:56 Last Admin: 10/10/18 16:24 Dose: 0.5 mg Magnesium Hydroxide (Milk Of Magnesia) 30 ml PO HS PRN PRN Reason: Constipation Stop: 12/05/18 00:56 Multivitamins/Vitamin C (Theragran) 1 tab PO DAILY KATINA Stop: 12/05/18 08:59 Last Admin: 10/10/18 08:17 Dose: 1 tab Olanzapine (Zyprexa) 7.5 mg PO BID KATINA; Protocol Stop: 12/07/18 16:59 Last Admin: 08/18/19 16:24 Dose: 7.5 mg Zolpidem Tartrate (Ambien) 5 mg PO HS PRN PRN Reason: Insomnia Stop: 12/04/18 22:56 General: No acute distress HEENT: PERRLA, EOMI Neck: Supple, JVD Cardiovascular: Regular rate, Normal S1, Normal S2 Lungs: Clear to auscultation Abdomen: Bowel sounds, Soft Assessment/Plan - Assessment Assessment: 1.HYPERLIPIDEMIA. 2.INSOMNIA. 3.DJD. 4.PSYCHSIS - Plan Plan: continue current treatment Nutritional Asmnt/Malnutr-PDOC - Dietary Evaluation Malnutrition Findings (Please click <Entered> for more info): Nutritional Asmnt/Malnutrition Start: 10/08/18 15: 30 Text: Status: Complete Freq: Protocol: Document 10/08/18 15:38 RHINA (Rec: 10/08/18 15:40 RHINA [email or web address]) Nutritional Asmnt/Malnutrition Patient General Information Nutritional Screening Moderate Risk Diagnosis Psychosis Pertinent Medical Hx/Surgical Hx Hypercholesterolemia Subjective Information Pt is a 63-year-old female admitted on 10/05 c/o agitation . Per Meal/Nutrition Activity Record, Pt PO intake 100% meals on 10/07. HT: 411 WT: 146 LB (66.36 kg) ADJ BW: 52.46 kg BMI: 29.49 (Overweight) GI: WNL, Soft, Non-Tender BM: 10/08 x1 I/O: 1200/Not Noted Skin: WNL, Intact Suresh: 22 Diet Order: Fat controlled 50 gm Estimated Energy Needs: ( Overweight, ADJ BW) 3532-6073 kcals (20-25 kcals/ kg) 42-47g Pro (0.8-0.9/kg) 0932-7656 ml (25-30ml/kg) Pt is eating 100% of meals Per Meal/Nutrition Activity Record. Dietary is currently providing an estimated 1977 kcals and 79 gm Pro to meet 100% kcal and 100+% Pro needs. Current Diet Order/ Nutrition Support Fat controlled 50 gm Pertinent Medications Maalox (PRN), Lipitor, Colace, MOM (PRN), Theragran Pertinent Labs 10/05: Hgb/Hct 12.8/37.6, Glucose 122 Nutritional Hx/Data Height 1.5 m Height (Calculated Centimeters) 149.9 Current Weight (lbs) 66.224 kg Weight (Calculated Kilograms) 66.2 Weight (Calculated Grams) 04482.5 [place] Body Weight 43.2 kg % [place] Body Weight 154 Body Mass Index (BMI) 29.5 Weight Status Overweight GI Symptoms GI Symptoms None Last BM 10/08 x1 Skin Integrity/Comment: WNL, Intact Suresh: 22 Current %PO Good (75-100%) Estimated Nutritional Goals BEE in Kcals: Adj wt of IBW Calories/Kcals/Kg 20-25 Kcals Calculated 8496-0601 Protein: Adj wt of IBW Protein g/k.8-0.9 Protein Calculated 42-47 Fluid: ml 2592-5794 ml (25-30ml/kg) Nutritional Problem No current Nutrition Prob Problem N/A Etiology N/A Signs/Symptoms: N/A Malnutrition Related to Morbid Obesity Malnutrition related to morbid obesity No Intervention/Recommendation Comments 1.Continue with Fat controlled 50 gm diet as ordered. Expected Outcomes/Goals Expected Outcomes/Goals 1.PO intake to continue to meet 75% of nutritional needs. 2.Monitor PO intake, wt, nutrition related labs, and skin integrity. 3.F/U as low risk in 7 days,
[2018-10-11] MEDS: Multivitamin Tab PO SCH (09:06)
[2018-10-11] MEDS: Atorvastatin Calcium 10 MG TAB PO SCH (20:57)
--- NOTE | 2018-10-11 21:01 | Internal Medicine Prog Note ---
Internal Medicine Subjective - Subjective Service Date: 10/11/18 Patient seen and examined:: with staff (SHE IS DOING BETTER) Patient is:: awake, verbal, confused Per staff patient has:: no adverse event Internal Medicine Objective - Results Result Diagrams: 10/05/18 20:50 10/05/18 20:50 Recent Labs: Laboratory Last Values WBC 10.7 Th/cmm (4.8-10.8) 10/05/18 20:50 RBC 4.29 Mil/cmm (3.80-5.10) 10/05/18 20:50 Hgb 12.8 gm/dL (12-16) 10/05/18 20:50 Hct 37.6 % (41.0-60) L 10/05/18 20:50 MCV 87.8 fl (81-100) 10/05/18 20:50 MCH 29.8 pg (27.0-31.0) 10/05/18 20:50 MCHC Differential 34.0 pg (28.0-36.0) 10/05/18 20:50 RDW 13.4 % (11.5-20.0) 10/05/18 20:50 Plt Count 397 Th/cmm (150-400) 10/05/18 20:50 MPV 7.1 fl 10/05/18 20:50 Neutrophils % 77.0 % (40.0-80.0) 10/05/18 20:50 Lymphocytes % 17.2 % (20.0-50.0) L 10/05/18 20:50 Monocytes % 4.7 % (2.0-10.0) 10/05/18 20:50 Eosinophils % 1.1 % (0.0-5.0) 10/05/18 20:50 Basophils % 0.0 % (0.0-2.0) 10/05/18 20:50 PT 10.4 SECONDS (9.5-11.5) 10/05/18 20:50 INR 1.00 (0.5-1.4) 10/05/18 20:50 PTT (Actin FS) 25.0 SECONDS (26.0-38.0) L 10/05/18 20:50 Sodium 137 mEq/L (136-145) 10/05/18 20:50 Potassium 3.9 mEq/L (3.5-5.1) 10/05/18 20:50 Chloride 105 mEq/L (98-107) 10/05/18 20:50 Carbon Dioxide 24.3 mEq/L (21.0-31.0) 10/05/18 20:50 Anion Gap 11.6 (7.0-16.0) 10/05/18 20:50 BUN 13 mg/dL (7-25) 10/05/18 20:50 Creatinine 0.6 mg/dL (0.6-1.2) 10/05/18 20:50 Est GFR ( Amer) > 60.0 ml/min (>90) 10/05/18 20:50 Est GFR (Non-Af Amer) > 60.0 ml/min 10/05/18 20:50 BUN/Creatinine Ratio 21.7 10/05/18 20:50 Glucose 122 mg/dL (70-105) H 10/05/18 20:50 Calcium 9.8 mg/dL (8.6-10.3) 10/05/18 20:50 Total Bilirubin 0.3 mg/dL (0.3-1.0) 10/05/18 20:50 AST 18 U/L (13-39) 10/05/18 20:50 ALT 21 U/L (7-52) 10/05/18 20:50 Alkaline Phosphatase 87 U/L (34-104) 10/05/18 20:50 Troponin I < 0.01 ng/mL (0.01-0.05) L 10/05/18 20:50 B-Natriuretic Peptide 16.4 pg/mL (5.0-100.0) 10/05/18 20:50 Total Protein 7.1 gm/dL (6.0-8.3) 10/05/18 20:50 Albumin 4.1 gm/dL (3.7-5.3) 10/05/18 20:50 Globulin 3.0 gm/dL 10/05/18 20:50 Albumin/Globulin Ratio 1.4 (1.0-1.8) 10/05/18 20:50 Triglycerides 166 mg/dL (<150) H 10/05/18 19:30 Cholesterol 161 mg/dL (<200) 10/05/18 19:30 LDL Cholesterol Direct 93 mg/dL (75-193) 10/05/18 19:30 HDL Cholesterol 41 mg/dL (23-92) 10/05/18 19:30 TSH 0.43 uIU/ml (0.34-5.60) 10/05/18 20:50 RPR NONREACTIVE (NONREACTIVE) 10/05/18 20:50 - Physical Exam Vitals and I&O: Vital Signs Temp 98.4 F 10/11/18 20:28 Pulse 71 10/11/18 20:28 Resp 20 10/11/18 20:28 BP 116/43 10/11/18 20:28 Pulse Ox 97 10/11/18 20:28 Intake & Output 10/11/18 10/11/18 10/12/18 06:59 18:59 06:59 Intake Total 120 1200 480 Balance 120 1200 480 Intake: Oral 120 1200 480 Other: # Voids 3 4 1 # Bowel Movements 0 1 Active Medications: Current Medications Acetaminophen (Tylenol) 650 mg PO Q4HR PRN PRN Reason: Mild Pain / Temp above 100 Stop: 12/04/18 22:56 Al Hydrox/Mg Hydrox/Simethicone (Maalox) 30 ml PO Q4HR PRN PRN Reason: GI DISTRESS Stop: 12/04/18 22:56 Atorvastatin Calcium (Lipitor) 10 mg PO HS KATINA; Protocol Stop: 12/05/18 20:59 Last Admin: 10/11/18 20:57 Dose: 10 mg Divalproex Sodium (Depakote Dr) 250 mg PO Q8HR KATINA; Protocol Stop: 12/09/18 12:59 Last Admin: 10/11/18 20:57 Dose: 250 mg Docusate Sodium (Colace) 100 mg PO BID KATINA Stop: 12/05/18 08:59 Last Admin: 10/11/18 16:49 Dose: 100 mg Lorazepam (Ativan) 0.5 mg PO Q4HR PRN; Protocol PRN Reason: Anxiety Stop: 11/04/18 22:56 Last Admin: 10/10/18 16:24 Dose: 0.5 mg Magnesium Hydroxide (Milk Of Magnesia) 30 ml PO HS PRN PRN Reason: Constipation Stop: 12/05/18 00:56 Multivitamins/Vitamin C (Theragran) 1 tab PO DAILY KATINA Stop: 12/05/18 08:59 Last Admin: 10/11/18 09:06 Dose: 1 tab Olanzapine (Zyprexa) 7.5 mg PO BID KATINA; Protocol Stop: 12/07/18 16:59 Last Admin: 10/11/18 16:49 Dose: 7.5 mg Zolpidem Tartrate (Ambien) 5 mg PO HS PRN PRN Reason: Insomnia Stop: 12/04/18 22:56 General: demented HEENT: NC/AT, PERRLA, EOMI, anicteric sclerae, throat clear Neck: Supple, No JVD, No thyromegaly, +2 carotid pulse wo bruit, No LAD Lungs: CTAB Cardiovascular: RRR, Normal S1, Normal S2, without murmur Abdomen: soft, non-tender, non-distended Extremities: clear Neurological: no change Internal Medicine Assmt/Plan - Assessment Assessment: 1.HYPERLIPIDEMIA. 2.INSOMNIA. 3.DJD. 4.PSYCHSIS - Plan Plan: CONTINUE ON CURRENT MEDICATION AND DIET. Nutritional Asmnt/Malnutr-PDOC - Dietary Evaluation Malnutrition Findings (Please click <Entered> for more info): Nutritional Asmnt/Malnutrition Start: 10/08/18 15: 30 Text: Status: Complete Freq: Protocol: Document 10/08/18 15:38 RHINA (Rec: 10/08/18 15:40 RHINA [email or web address]) Nutritional Asmnt/Malnutrition Patient General Information Nutritional Screening Moderate Risk Diagnosis Psychosis Pertinent Medical Hx/Surgical Hx Hypercholesterolemia Subjective Information Pt is a 63-year-old female admitted on 10/05 c/o agitation . Per Meal/Nutrition Activity Record, Pt PO intake 100% meals on 10/07. HT: 411 WT: 146 LB (66.36 kg) ADJ BW: 52.46 kg BMI: 29.49 (Overweight) GI: WNL, Soft, Non-Tender BM: 10/08 x1 I/O: 1200/Not Noted Skin: WNL, Intact Suresh: 22 Diet Order: Fat controlled 50 gm Estimated Energy Needs: ( Overweight, ADJ BW) 6431-3134 kcals (20-25 kcals/ kg) 42-47g Pro (0.8-0.9/kg) 1549-8407 ml (25-30ml/kg) Pt is eating 100% of meals Per Meal/Nutrition Activity Record. Dietary is currently providing an estimated 1977 kcals and 79 gm Pro to meet 100% kcal and 100+% Pro needs. Current Diet Order/ Nutrition Support Fat controlled 50 gm Pertinent Medications Maalox (PRN), Lipitor, Colace, MOM (PRN), Theragran Pertinent Labs 10/05: Hgb/Hct 12.8/37.6, Glucose 122 Nutritional Hx/Data Height 1.5 m Height (Calculated Centimeters) 149.9 Current Weight (lbs) 66.224 kg Weight (Calculated Kilograms) 66.2 Weight (Calculated Grams) 80691.5 [place] Body Weight 43.2 kg % [place] Body Weight 154 Body Mass Index (BMI) 29.5 Weight Status Overweight GI Symptoms GI Symptoms None Last BM 10/08 x1 Skin Integrity/Comment: WNL, Intact Suresh: 22 Current %PO Good (75-100%) Estimated Nutritional Goals BEE in Kcals: Adj wt of IBW Calories/Kcals/Kg 20-25 Kcals Calculated 8167-9546 Protein: Adj wt of IBW Protein g/k.8-0.9 Protein Calculated 42-47 Fluid: ml 4163-7209 ml (25-30ml/kg) Nutritional Problem No current Nutrition Prob Problem N/A Etiology N/A Signs/Symptoms: N/A Malnutrition Related to Morbid Obesity Malnutrition related to morbid obesity No Intervention/Recommendation Comments 1.Continue with Fat controlled 50 gm diet as ordered. Expected Outcomes/Goals Expected Outcomes/Goals 1.PO intake to continue to meet 75% of nutritional needs. 2.Monitor PO intake, wt, nutrition related labs, and skin integrity. 3.F/U as low risk in 7 days,
--- NOTE | 2018-10-11 23:24 | Progress Notes ---
DATE: 10/11/2018 Case was discussed with staff of the patient. The patient continues to be inappropriate now. She said she does not trust her guardian. I don't know if she has a guardian she is sleeping well, eating well. I increased her olanzapine to 7.5 mg twice a day with no side effects, no sedation, no nausea, no extrapyramidal symptoms. We will continue the patient in group therapy, milieu therapy, and adjust the medication as needed. [facility]# [id number] MTDD
[2018-10-12] MEDS: Multivitamin Tab PO SCH (08:46)
[2018-10-12] MEDS: Atorvastatin Calcium 10 MG TAB PO SCH (20:54)
--- NOTE | 2018-10-12 21:51 | Internal Medicine Prog Note ---
Internal Medicine Subjective - Subjective Service Date: 10/12/18 Patient seen and examined:: without staff (SHE IS CONFUSED) Patient is:: awake, verbal, confused Per staff patient has:: no adverse event Internal Medicine Objective - Results Result Diagrams: 10/05/18 20:50 10/05/18 20:50 Recent Labs: Laboratory Last Values WBC 10.7 Th/cmm (4.8-10.8) 10/05/18 20:50 RBC 4.29 Mil/cmm (3.80-5.10) 10/05/18 20:50 Hgb 12.8 gm/dL (12-16) 10/05/18 20:50 Hct 37.6 % (41.0-60) L 10/05/18 20:50 MCV 87.8 fl (81-100) 10/05/18 20:50 MCH 29.8 pg (27.0-31.0) 10/05/18 20:50 MCHC Differential 34.0 pg (28.0-36.0) 10/05/18 20:50 RDW 13.4 % (11.5-20.0) 10/05/18 20:50 Plt Count 397 Th/cmm (150-400) 10/05/18 20:50 MPV 7.1 fl 10/05/18 20:50 Neutrophils % 77.0 % (40.0-80.0) 10/05/18 20:50 Lymphocytes % 17.2 % (20.0-50.0) L 10/05/18 20:50 Monocytes % 4.7 % (2.0-10.0) 10/05/18 20:50 Eosinophils % 1.1 % (0.0-5.0) 10/05/18 20:50 Basophils % 0.0 % (0.0-2.0) 10/05/18 20:50 PT 10.4 SECONDS (9.5-11.5) 10/05/18 20:50 INR 1.00 (0.5-1.4) 10/05/18 20:50 PTT (Actin FS) 25.0 SECONDS (26.0-38.0) L 10/05/18 20:50 Sodium 137 mEq/L (136-145) 10/05/18 20:50 Potassium 3.9 mEq/L (3.5-5.1) 10/05/18 20:50 Chloride 105 mEq/L (98-107) 10/05/18 20:50 Carbon Dioxide 24.3 mEq/L (21.0-31.0) 10/05/18 20:50 Anion Gap 11.6 (7.0-16.0) 10/05/18 20:50 BUN 13 mg/dL (7-25) 10/05/18 20:50 Creatinine 0.6 mg/dL (0.6-1.2) 10/05/18 20:50 Est GFR ( Amer) > 60.0 ml/min (>90) 10/05/18 20:50 Est GFR (Non-Af Amer) > 60.0 ml/min 10/05/18 20:50 BUN/Creatinine Ratio 21.7 10/05/18 20:50 Glucose 122 mg/dL (70-105) H 10/05/18 20:50 Calcium 9.8 mg/dL (8.6-10.3) 10/05/18 20:50 Total Bilirubin 0.3 mg/dL (0.3-1.0) 10/05/18 20:50 AST 18 U/L (13-39) 10/05/18 20:50 ALT 21 U/L (7-52) 10/05/18 20:50 Alkaline Phosphatase 87 U/L (34-104) 10/05/18 20:50 Troponin I < 0.01 ng/mL (0.01-0.05) L 10/05/18 20:50 B-Natriuretic Peptide 16.4 pg/mL (5.0-100.0) 10/05/18 20:50 Total Protein 7.1 gm/dL (6.0-8.3) 10/05/18 20:50 Albumin 4.1 gm/dL (3.7-5.3) 10/05/18 20:50 Globulin 3.0 gm/dL 10/05/18 20:50 Albumin/Globulin Ratio 1.4 (1.0-1.8) 10/05/18 20:50 Triglycerides 166 mg/dL (<150) H 10/05/18 19:30 Cholesterol 161 mg/dL (<200) 10/05/18 19:30 LDL Cholesterol Direct 93 mg/dL (75-193) 10/05/18 19:30 HDL Cholesterol 41 mg/dL (23-92) 10/05/18 19:30 TSH 0.43 uIU/ml (0.34-5.60) 10/05/18 20:50 Valproic Acid 45.8 ug/mL (50.0-100.0) L 10/12/18 14:30 RPR NONREACTIVE (NONREACTIVE) 10/05/18 20:50 - Physical Exam Vitals and I&O: Vital Signs Temp 97.9 F 10/12/18 20:00 Pulse 69 10/12/18 20:00 Resp 19 10/12/18 20:00 BP 113/57 10/12/18 20:00 Pulse Ox 97 10/12/18 20:00 Intake & Output 10/12/18 10/12/18 10/13/18 06:59 18:59 06:59 Intake Total 480 900 Balance 480 900 Intake: Oral 480 900 Other: # Voids 3 3 # Bowel Movements 0 1 Active Medications: Current Medications Acetaminophen (Tylenol) 650 mg PO Q4HR PRN PRN Reason: Mild Pain / Temp above 100 Stop: 12/04/18 22:56 Al Hydrox/Mg Hydrox/Simethicone (Maalox) 30 ml PO Q4HR PRN PRN Reason: GI DISTRESS Stop: 12/04/18 22:56 Atorvastatin Calcium (Lipitor) 10 mg PO HS KATINA; Protocol Stop: 12/05/18 20:59 Last Admin: 10/12/18 20:54 Dose: 10 mg Divalproex Sodium (Depakote Dr) 250 mg PO Q8HR KATINA; Protocol Stop: 12/09/18 12:59 Last Admin: 10/12/18 20:54 Dose: 250 mg Docusate Sodium (Colace) 100 mg PO BID KATINA Stop: 12/05/18 08:59 Last Admin: 10/12/18 17:35 Dose: 100 mg Lorazepam (Ativan) 0.5 mg PO Q4HR PRN; Protocol PRN Reason: Anxiety Stop: 11/04/18 22:56 Last Admin: 10/10/18 16:24 Dose: 0.5 mg Magnesium Hydroxide (Milk Of Magnesia) 30 ml PO HS PRN PRN Reason: Constipation Stop: 12/05/18 00:56 Multivitamins/Vitamin C (Theragran) 1 tab PO DAILY KATINA Stop: 12/05/18 08:59 Last Admin: 10/12/18 08:46 Dose: 1 tab Olanzapine (Zyprexa) 7.5 mg PO BID KATINA; Protocol Stop: 12/07/18 16:59 Last Admin: 10/12/18 17:35 Dose: 7.5 mg Zolpidem Tartrate (Ambien) 5 mg PO HS PRN PRN Reason: Insomnia Stop: 12/04/18 22:56 General: demented HEENT: NC/AT, PERRLA, EOMI, anicteric sclerae, throat clear Neck: Supple, No JVD, No thyromegaly, +2 carotid pulse wo bruit, No LAD Lungs: CTAB Cardiovascular: RRR, Normal S1, Normal S2, without murmur Abdomen: soft, non-tender, non-distended Extremities: clear Neurological: no change Internal Medicine Assmt/Plan - Assessment Assessment: 1.HYPERLIPIDEMIA. 2.INSOMNIA. 3.DJD. 4.PSYCHSIS - Plan Plan: CONTINUE ON CURRENT MEDICATION AND DIET. Nutritional Asmnt/Malnutr-PDOC - Dietary Evaluation Malnutrition Findings (Please click <Entered> for more info): Nutritional Asmnt/Malnutrition Start: 10/08/18 15: 30 Text: Status: Complete Freq: Protocol: Document 10/08/18 15:38 RHINA (Rec: 10/08/18 15:40 RHINA [email or web address]) Nutritional Asmnt/Malnutrition Patient General Information Nutritional Screening Moderate Risk Diagnosis Psychosis Pertinent Medical Hx/Surgical Hx Hypercholesterolemia Subjective Information Pt is a 63-year-old female admitted on 10/05 c/o agitation . Per Meal/Nutrition Activity Record, Pt PO intake 100% meals on 10/07. HT: 411 WT: 146 LB (66.36 kg) ADJ BW: 52.46 kg BMI: 29.49 (Overweight) GI: WNL, Soft, Non-Tender BM: 10/08 x1 I/O: 1200/Not Noted Skin: WNL, Intact Suresh: 22 Diet Order: Fat controlled 50 gm Estimated Energy Needs: ( Overweight, ADJ BW) 6485-3912 kcals (20-25 kcals/ kg) 42-47g Pro (0.8-0.9/kg) 7350-3367 ml (25-30ml/kg) Pt is eating 100% of meals Per Meal/Nutrition Activity Record. Dietary is currently providing an estimated 1977 kcals and 79 gm Pro to meet 100% kcal and 100+% Pro needs. Current Diet Order/ Nutrition Support Fat controlled 50 gm Pertinent Medications Maalox (PRN), Lipitor, Colace, MOM (PRN), Theragran Pertinent Labs 10/05: Hgb/Hct 12.8/37.6, Glucose 122 Nutritional Hx/Data Height 1.5 m Height (Calculated Centimeters) 149.9 Current Weight (lbs) 66.224 kg Weight (Calculated Kilograms) 66.2 Weight (Calculated Grams) 55315.5 [place] Body Weight 43.2 kg % [place] Body Weight 154 Body Mass Index (BMI) 29.5 Weight Status Overweight GI Symptoms GI Symptoms None Last BM 10/08 x1 Skin Integrity/Comment: WNL, Intact Suresh: 22 Current %PO Good (75-100%) Estimated Nutritional Goals BEE in Kcals: Adj wt of IBW Calories/Kcals/Kg 20-25 Kcals Calculated 6634-8665 Protein: Adj wt of IBW Protein g/k.8-0.9 Protein Calculated 42-47 Fluid: ml 6155-7179 ml (25-30ml/kg) Nutritional Problem No current Nutrition Prob Problem N/A Etiology N/A Signs/Symptoms: N/A Malnutrition Related to Morbid Obesity Malnutrition related to morbid obesity No Intervention/Recommendation Comments 1.Continue with Fat controlled 50 gm diet as ordered. Expected Outcomes/Goals Expected Outcomes/Goals 1.PO intake to continue to meet 75% of nutritional needs. 2.Monitor PO intake, wt, nutrition related labs, and skin integrity. 3.F/U as low risk in 7 days,
--- NOTE | 2018-10-12 23:46 | Progress Notes ---
DATE: 10/12/2018 Case was discussed with staff of the patient, reviewed records. The patient continues to be somewhat delusional and manic, irritable. Continues to have poor insight, unable to make safe plan for self-care, unpredictable, impulsive. Tolerated adding of the Depakote with no side effects, no sedation, no nausea, no extrapyramidal symptoms. Lab work showed RPR nonreactive. She has high triglyceride, the rest of lipid panel within normal range. Liver function within normal range. She has high blood sugar. CBC with low hematocrit, low lymphocyte. We will be checking her Depakote level We will continue to work with the patient in group therapy, milieu therapy, and adjust medication as needed. JOB# [id number] TORRI
[2018-10-13] MEDS: Multivitamin Tab PO SCH (08:50)
--- NOTE | 2018-10-13 09:14 | Internal Medicine Prog Note ---
Internal Medicine Subjective - Subjective Service Date: 10/13/18 Patient seen and examined:: with staff (SHE IS STILL CONFUSED) Patient is:: awake, verbal, confused Per staff patient has:: no adverse event Internal Medicine Objective - Results Result Diagrams: 10/05/18 20:50 10/05/18 20:50 Recent Labs: Laboratory Last Values WBC 10.7 Th/cmm (4.8-10.8) 10/05/18 20:50 RBC 4.29 Mil/cmm (3.80-5.10) 10/05/18 20:50 Hgb 12.8 gm/dL (12-16) 10/05/18 20:50 Hct 37.6 % (41.0-60) L 10/05/18 20:50 MCV 87.8 fl (81-100) 10/05/18 20:50 MCH 29.8 pg (27.0-31.0) 10/05/18 20:50 MCHC Differential 34.0 pg (28.0-36.0) 10/05/18 20:50 RDW 13.4 % (11.5-20.0) 10/05/18 20:50 Plt Count 397 Th/cmm (150-400) 10/05/18 20:50 MPV 7.1 fl 10/05/18 20:50 Neutrophils % 77.0 % (40.0-80.0) 10/05/18 20:50 Lymphocytes % 17.2 % (20.0-50.0) L 10/05/18 20:50 Monocytes % 4.7 % (2.0-10.0) 10/05/18 20:50 Eosinophils % 1.1 % (0.0-5.0) 10/05/18 20:50 Basophils % 0.0 % (0.0-2.0) 10/05/18 20:50 PT 10.4 SECONDS (9.5-11.5) 10/05/18 20:50 INR 1.00 (0.5-1.4) 10/05/18 20:50 PTT (Actin FS) 25.0 SECONDS (26.0-38.0) L 10/05/18 20:50 Sodium 137 mEq/L (136-145) 10/05/18 20:50 Potassium 3.9 mEq/L (3.5-5.1) 10/05/18 20:50 Chloride 105 mEq/L (98-107) 10/05/18 20:50 Carbon Dioxide 24.3 mEq/L (21.0-31.0) 10/05/18 20:50 Anion Gap 11.6 (7.0-16.0) 10/05/18 20:50 BUN 13 mg/dL (7-25) 10/05/18 20:50 Creatinine 0.6 mg/dL (0.6-1.2) 10/05/18 20:50 Est GFR ( Amer) > 60.0 ml/min (>90) 10/05/18 20:50 Est GFR (Non-Af Amer) > 60.0 ml/min 10/05/18 20:50 BUN/Creatinine Ratio 21.7 10/05/18 20:50 Glucose 122 mg/dL (70-105) H 10/05/18 20:50 Calcium 9.8 mg/dL (8.6-10.3) 10/05/18 20:50 Total Bilirubin 0.3 mg/dL (0.3-1.0) 10/05/18 20:50 AST 18 U/L (13-39) 10/05/18 20:50 ALT 21 U/L (7-52) 10/05/18 20:50 Alkaline Phosphatase 87 U/L (34-104) 10/05/18 20:50 Troponin I < 0.01 ng/mL (0.01-0.05) L 10/05/18 20:50 B-Natriuretic Peptide 16.4 pg/mL (5.0-100.0) 10/05/18 20:50 Total Protein 7.1 gm/dL (6.0-8.3) 10/05/18 20:50 Albumin 4.1 gm/dL (3.7-5.3) 10/05/18 20:50 Globulin 3.0 gm/dL 10/05/18 20:50 Albumin/Globulin Ratio 1.4 (1.0-1.8) 10/05/18 20:50 Triglycerides 166 mg/dL (<150) H 10/05/18 19:30 Cholesterol 161 mg/dL (<200) 10/05/18 19:30 LDL Cholesterol Direct 93 mg/dL (75-193) 10/05/18 19:30 HDL Cholesterol 41 mg/dL (23-92) 10/05/18 19:30 TSH 0.43 uIU/ml (0.34-5.60) 10/05/18 20:50 Valproic Acid 45.8 ug/mL (50.0-100.0) L 10/12/18 14:30 RPR NONREACTIVE (NONREACTIVE) 10/05/18 20:50 - Physical Exam Vitals and I&O: Vital Signs Temp 97 F 10/13/18 06:30 Pulse 70 10/13/18 06:30 Resp 20 10/13/18 06:30 BP 131/69 10/13/18 06:30 Pulse Ox 96 10/13/18 06:30 Intake & Output 10/12/18 10/13/18 10/13/18 18:59 06:59 18:59 Intake Total 900 120 Balance 900 120 Intake: Oral 900 120 Other: # Voids 3 3 # Bowel Movements 1 Active Medications: Current Medications Acetaminophen (Tylenol) 650 mg PO Q4HR PRN PRN Reason: Mild Pain / Temp above 100 Stop: 12/04/18 22:56 Al Hydrox/Mg Hydrox/Simethicone (Maalox) 30 ml PO Q4HR PRN PRN Reason: GI DISTRESS Stop: 12/04/18 22:56 Atorvastatin Calcium (Lipitor) 10 mg PO HS KATINA; Protocol Stop: 12/05/18 20:59 Last Admin: 10/12/18 20:54 Dose: 10 mg Divalproex Sodium (Depakote Dr) 250 mg PO Q8HR KATINA; Protocol Stop: 12/09/18 12:59 Last Admin: 10/13/18 05:10 Dose: 250 mg Docusate Sodium (Colace) 100 mg PO BID KATINA Stop: 12/05/18 08:59 Last Admin: 10/13/18 08:50 Dose: 100 mg Lorazepam (Ativan) 0.5 mg PO Q4HR PRN; Protocol PRN Reason: Anxiety Stop: 11/04/18 22:56 Last Admin: 10/10/18 16:24 Dose: 0.5 mg Magnesium Hydroxide (Milk Of Magnesia) 30 ml PO HS PRN PRN Reason: Constipation Stop: 12/05/18 00:56 Multivitamins/Vitamin C (Theragran) 1 tab PO DAILY KATINA Stop: 12/05/18 08:59 Last Admin: 10/13/18 08:50 Dose: 1 tab Olanzapine (Zyprexa) 7.5 mg PO BID KATINA; Protocol Stop: 12/07/18 16:59 Last Admin: 10/13/18 08:49 Dose: 7.5 mg Zolpidem Tartrate (Ambien) 5 mg PO HS PRN PRN Reason: Insomnia Stop: 12/04/18 22:56 General: demented HEENT: NC/AT, PERRLA, EOMI, anicteric sclerae, throat clear Neck: Supple, No JVD, No thyromegaly, +2 carotid pulse wo bruit, No LAD Lungs: CTAB Cardiovascular: RRR, Normal S1, Normal S2, without murmur Abdomen: soft, non-tender, non-distended Extremities: clear Neurological: no change Internal Medicine Assmt/Plan - Assessment Assessment: 1.HYPERLIPIDEMIA. 2.INSOMNIA. 3.DJD. 4.PSYCHSIS - Plan Plan: CONTINUE ON CURRENT MEDICATION AND DIET. Nutritional Asmnt/Malnutr-PDOC - Dietary Evaluation Malnutrition Findings (Please click <Entered> for more info): Nutritional Asmnt/Malnutrition Start: 10/08/18 15: 30 Text: Status: Complete Freq: Protocol: Document 10/08/18 15:38 RHINA (Rec: 10/08/18 15:40 RHINA [email or web address]) Nutritional Asmnt/Malnutrition Patient General Information Nutritional Screening Moderate Risk Diagnosis Psychosis Pertinent Medical Hx/Surgical Hx Hypercholesterolemia Subjective Information Pt is a 63-year-old female admitted on 10/05 c/o agitation . Per Meal/Nutrition Activity Record, Pt PO intake 100% meals on 10/07. HT: 411 WT: 146 LB (66.36 kg) ADJ BW: 52.46 kg BMI: 29.49 (Overweight) GI: WNL, Soft, Non-Tender BM: 10/08 x1 I/O: 1200/Not Noted Skin: WNL, Intact Suresh: 22 Diet Order: Fat controlled 50 gm Estimated Energy Needs: ( Overweight, ADJ BW) 4608-9456 kcals (20-25 kcals/ kg) 42-47g Pro (0.8-0.9/kg) 4406-6349 ml (25-30ml/kg) Pt is eating 100% of meals Per Meal/Nutrition Activity Record. Dietary is currently providing an estimated 1977 kcals and 79 gm Pro to meet 100% kcal and 100+% Pro needs. Current Diet Order/ Nutrition Support Fat controlled 50 gm Pertinent Medications Maalox (PRN), Lipitor, Colace, MOM (PRN), Theragran Pertinent Labs 10/05: Hgb/Hct 12.8/37.6, Glucose 122 Nutritional Hx/Data Height 1.5 m Height (Calculated Centimeters) 149.9 Current Weight (lbs) 66.224 kg Weight (Calculated Kilograms) 66.2 Weight (Calculated Grams) 26774.5 [place] Body Weight 43.2 kg % [place] Body Weight 154 Body Mass Index (BMI) 29.5 Weight Status Overweight GI Symptoms GI Symptoms None Last BM 10/08 x1 Skin Integrity/Comment: WNL, Intact Suresh: 22 Current %PO Good (75-100%) Estimated Nutritional Goals BEE in Kcals: Adj wt of IBW Calories/Kcals/Kg 20-25 Kcals Calculated 1687-0232 Protein: Adj wt of IBW Protein g/k.8-0.9 Protein Calculated 42-47 Fluid: ml 4523-3684 ml (25-30ml/kg) Nutritional Problem No current Nutrition Prob Problem N/A Etiology N/A Signs/Symptoms: N/A Malnutrition Related to Morbid Obesity Malnutrition related to morbid obesity No Intervention/Recommendation Comments 1.Continue with Fat controlled 50 gm diet as ordered. Expected Outcomes/Goals Expected Outcomes/Goals 1.PO intake to continue to meet 75% of nutritional needs. 2.Monitor PO intake, wt, nutrition related labs, and skin integrity. 3.F/U as low risk in 7 days,
--- NOTE | 2018-10-13 16:15 | Progress Notes ---
DATE: 10/13/2018 Case was discussed with staff of the patient, reviewed records. The patient continues to be unpredictable, impulsive, not making sense. Depakote level 45.8, which is below acceptable therapeutic range. She is sleeping better, eating better. I will be increasing her Depakote dose to 500 mg twice a day. Olanzapine was increased to 7.5 mg twice a day. We will continue outpatient group therapy, milieu therapy, and adjust medication as needed. [facility]# [id number]
[2018-10-13] MEDS: Atorvastatin Calcium 10 MG TAB PO SCH (20:27)
[2018-10-14] MEDS: Multivitamin Tab PO SCH (08:19)
--- NOTE | 2018-10-14 13:39 | Progress Notes ---
DATE: 10/14/2018 Case was discussed with staff of the patient, reviewed records. The patient continues to have poor insight, continues to be unpredictable, impulsive, delusional, unable to make safe plan for self-care. Sleeping better, eating better. No side effects with the medication, no sedation, no nausea, no extrapyramidal symptoms. Waiting on the Depakote level. We will continue outpatient group therapy, milieu therapy, and adjust medication as needed. [facility]# [id number]
--- NOTE | 2018-10-14 17:27 | Internal Medicine Prog Note ---
Internal Medicine Subjective - Subjective Service Date: 10/14/18 Patient seen and examined:: with staff (SHE IS CONFUSED) Patient is:: awake, verbal, confused Per staff patient has:: no adverse event Internal Medicine Objective - Results Result Diagrams: 10/05/18 20:50 10/05/18 20:50 Recent Labs: Laboratory Last Values WBC 10.7 Th/cmm (4.8-10.8) 10/05/18 20:50 RBC 4.29 Mil/cmm (3.80-5.10) 10/05/18 20:50 Hgb 12.8 gm/dL (12-16) 10/05/18 20:50 Hct 37.6 % (41.0-60) L 10/05/18 20:50 MCV 87.8 fl (81-100) 10/05/18 20:50 MCH 29.8 pg (27.0-31.0) 10/05/18 20:50 MCHC Differential 34.0 pg (28.0-36.0) 10/05/18 20:50 RDW 13.4 % (11.5-20.0) 10/05/18 20:50 Plt Count 397 Th/cmm (150-400) 10/05/18 20:50 MPV 7.1 fl 10/05/18 20:50 Neutrophils % 77.0 % (40.0-80.0) 10/05/18 20:50 Lymphocytes % 17.2 % (20.0-50.0) L 10/05/18 20:50 Monocytes % 4.7 % (2.0-10.0) 10/05/18 20:50 Eosinophils % 1.1 % (0.0-5.0) 10/05/18 20:50 Basophils % 0.0 % (0.0-2.0) 10/05/18 20:50 PT 10.4 SECONDS (9.5-11.5) 10/05/18 20:50 INR 1.00 (0.5-1.4) 10/05/18 20:50 PTT (Actin FS) 25.0 SECONDS (26.0-38.0) L 10/05/18 20:50 Sodium 137 mEq/L (136-145) 10/05/18 20:50 Potassium 3.9 mEq/L (3.5-5.1) 10/05/18 20:50 Chloride 105 mEq/L (98-107) 10/05/18 20:50 Carbon Dioxide 24.3 mEq/L (21.0-31.0) 10/05/18 20:50 Anion Gap 11.6 (7.0-16.0) 10/05/18 20:50 BUN 13 mg/dL (7-25) 10/05/18 20:50 Creatinine 0.6 mg/dL (0.6-1.2) 10/05/18 20:50 Est GFR ( Amer) > 60.0 ml/min (>90) 10/05/18 20:50 Est GFR (Non-Af Amer) > 60.0 ml/min 10/05/18 20:50 BUN/Creatinine Ratio 21.7 10/05/18 20:50 Glucose 122 mg/dL (70-105) H 10/05/18 20:50 Calcium 9.8 mg/dL (8.6-10.3) 10/05/18 20:50 Total Bilirubin 0.3 mg/dL (0.3-1.0) 10/05/18 20:50 AST 18 U/L (13-39) 10/05/18 20:50 ALT 21 U/L (7-52) 10/05/18 20:50 Alkaline Phosphatase 87 U/L (34-104) 10/05/18 20:50 Troponin I < 0.01 ng/mL (0.01-0.05) L 10/05/18 20:50 B-Natriuretic Peptide 16.4 pg/mL (5.0-100.0) 10/05/18 20:50 Total Protein 7.1 gm/dL (6.0-8.3) 10/05/18 20:50 Albumin 4.1 gm/dL (3.7-5.3) 10/05/18 20:50 Globulin 3.0 gm/dL 10/05/18 20:50 Albumin/Globulin Ratio 1.4 (1.0-1.8) 10/05/18 20:50 Triglycerides 166 mg/dL (<150) H 10/05/18 19:30 Cholesterol 161 mg/dL (<200) 10/05/18 19:30 LDL Cholesterol Direct 93 mg/dL (75-193) 10/05/18 19:30 HDL Cholesterol 41 mg/dL (23-92) 10/05/18 19:30 TSH 0.43 uIU/ml (0.34-5.60) 10/05/18 20:50 Valproic Acid 45.8 ug/mL (50.0-100.0) L 10/12/18 14:30 RPR NONREACTIVE (NONREACTIVE) 10/05/18 20:50 - Physical Exam Vitals and I&O: Vital Signs Temp 97.9 F 10/14/18 14:00 Pulse 81 10/14/18 14:00 Resp 20 10/14/18 16:02 BP 115/60 10/14/18 14:00 Pulse Ox 95 10/14/18 14:00 Intake & Output 10/13/18 10/14/18 10/14/18 18:59 06:59 18:59 Intake Total 1200 120 Balance 1200 120 Intake: Oral 1200 120 Other: # Voids 3 # Bowel Movements 1 1 Stool Characteristics Formed [place] Active Medications: Current Medications Acetaminophen (Tylenol) 650 mg PO Q4HR PRN PRN Reason: Mild Pain / Temp above 100 Stop: 12/04/18 22:56 Al Hydrox/Mg Hydrox/Simethicone (Maalox) 30 ml PO Q4HR PRN PRN Reason: GI DISTRESS Stop: 12/04/18 22:56 Atorvastatin Calcium (Lipitor) 10 mg PO HS KATINA; Protocol Stop: 12/05/18 20:59 Last Admin: 10/13/18 20:27 Dose: 10 mg Divalproex Sodium (Depakote Dr) 500 mg PO BID KATINA; Protocol Stop: 12/12/18 16:59 Last Admin: 10/14/18 16:52 Dose: 500 mg Docusate Sodium (Colace) 100 mg PO BID KATINA Stop: 12/05/18 08:59 Last Admin: 10/14/18 16:52 Dose: 100 mg Lorazepam (Ativan) 0.5 mg PO Q4HR PRN; Protocol PRN Reason: Anxiety Stop: 11/04/18 22:56 Last Admin: 10/10/18 16:24 Dose: 0.5 mg Magnesium Hydroxide (Milk Of Magnesia) 30 ml PO HS PRN PRN Reason: Constipation Stop: 12/05/18 00:56 Multivitamins/Vitamin C (Theragran) 1 tab PO DAILY KATINA Stop: 12/05/18 08:59 Last Admin: 10/14/18 08:19 Dose: 1 tab Olanzapine (Zyprexa) 7.5 mg PO BID KATINA; Protocol Stop: 12/07/18 16:59 Last Admin: 10/14/18 16:52 Dose: 7.5 mg Zolpidem Tartrate (Ambien) 5 mg PO HS PRN PRN Reason: Insomnia Stop: 12/04/18 22:56 General: demented HEENT: NC/AT, PERRLA, EOMI, anicteric sclerae, throat clear Neck: Supple, No JVD, No thyromegaly, +2 carotid pulse wo bruit, No LAD Lungs: CTAB Cardiovascular: RRR, Normal S1, Normal S2, without murmur Abdomen: soft, non-tender, non-distended Extremities: clear Neurological: no change Internal Medicine Assmt/Plan - Assessment Assessment: 1.HYPERLIPIDEMIA. 2.INSOMNIA. 3.DJD. 4.PSYCHSIS - Plan Plan: CONTINUE ON CURRENT MEDICATION AND DIET. Nutritional Asmnt/Malnutr-PDOC - Dietary Evaluation Malnutrition Findings (Please click <Entered> for more info): Nutritional Asmnt/Malnutrition Start: 10/08/18 15: 30 Text: Status: Complete Freq: Protocol: Document 10/08/18 15:38 RHINA (Rec: 10/08/18 15:40 RHINA [email or web address]) Nutritional Asmnt/Malnutrition Patient General Information Nutritional Screening Moderate Risk Diagnosis Psychosis Pertinent Medical Hx/Surgical Hx Hypercholesterolemia Subjective Information Pt is a 63-year-old female admitted on 10/05 c/o agitation . Per Meal/Nutrition Activity Record, Pt PO intake 100% meals on 10/07. HT: 411 WT: 146 LB (66.36 kg) ADJ BW: 52.46 kg BMI: 29.49 (Overweight) GI: WNL, Soft, Non-Tender BM: 10/08 x1 I/O: 1200/Not Noted Skin: WNL, Intact Suresh: 22 Diet Order: Fat controlled 50 gm Estimated Energy Needs: ( Overweight, ADJ BW) 9704-1483 kcals (20-25 kcals/ kg) 42-47g Pro (0.8-0.9/kg) 7350-7572 ml (25-30ml/kg) Pt is eating 100% of meals Per Meal/Nutrition Activity Record. Dietary is currently providing an estimated 1977 kcals and 79 gm Pro to meet 100% kcal and 100+% Pro needs. Current Diet Order/ Nutrition Support Fat controlled 50 gm Pertinent Medications Maalox (PRN), Lipitor, Colace, MOM (PRN), Theragran Pertinent Labs 10/05: Hgb/Hct 12.8/37.6, Glucose 122 Nutritional Hx/Data Height 1.5 m Height (Calculated Centimeters) 149.9 Current Weight (lbs) 66.224 kg Weight (Calculated Kilograms) 66.2 Weight (Calculated Grams) 43480.5 [place] Body Weight 43.2 kg % [place] Body Weight 154 Body Mass Index (BMI) 29.5 Weight Status Overweight GI Symptoms GI Symptoms None Last BM 10/08 x1 Skin Integrity/Comment: WNL, Intact Suresh: 22 Current %PO Good (75-100%) Estimated Nutritional Goals BEE in Kcals: Adj wt of IBW Calories/Kcals/Kg 20-25 Kcals Calculated 1289-7413 Protein: Adj wt of IBW Protein g/k.8-0.9 Protein Calculated 42-47 Fluid: ml 8319-8053 ml (25-30ml/kg) Nutritional Problem No current Nutrition Prob Problem N/A Etiology N/A Signs/Symptoms: N/A Malnutrition Related to Morbid Obesity Malnutrition related to morbid obesity No Intervention/Recommendation Comments 1.Continue with Fat controlled 50 gm diet as ordered. Expected Outcomes/Goals Expected Outcomes/Goals 1.PO intake to continue to meet 75% of nutritional needs. 2.Monitor PO intake, wt, nutrition related labs, and skin integrity. 3.F/U as low risk in 7 days,
[2018-10-14] MEDS: Atorvastatin Calcium 10 MG TAB PO SCH (20:25)
[2018-10-15] MEDS: Multivitamin Tab PO SCH (08:40)
--- NOTE | 2018-10-15 17:11 | Progress Notes ---
DATE: 10/15/2018 SUBJECTIVE: Case was discussed with staff of the patient, reviewed records. The patient is starting to show little progress. She is easier to redirect. She is sleeping better, eating better. No side effects with the medication, no sedation, no nausea, no extrapyramidal symptoms. I order her Depakote level was 45.8, which is within acceptable range. as She is not taking it for seizure. Her triglyceride is high at 166, blood sugar is high and the medical doctor is taking care of her. No side effects with the medication, no sedation, no nausea, no extrapyramidal symptoms. We will continue outpatient group therapy, milieu therapy, and adjust medications as needed. [facility]# [id number] TOR[place]
--- NOTE | 2018-10-15 18:47 | Internal Medicine Prog Note ---
Internal Medicine Subjective - Subjective Service Date: 10/15/18 Patient seen and examined:: with staff (SHE IS CONFUSED) Patient is:: awake, verbal, confused Per staff patient has:: no adverse event Internal Medicine Objective - Results Result Diagrams: 10/05/18 20:50 10/05/18 20:50 Recent Labs: Laboratory Last Values WBC 10.7 Th/cmm (4.8-10.8) 10/05/18 20:50 RBC 4.29 Mil/cmm (3.80-5.10) 10/05/18 20:50 Hgb 12.8 gm/dL (12-16) 10/05/18 20:50 Hct 37.6 % (41.0-60) L 10/05/18 20:50 MCV 87.8 fl (81-100) 10/05/18 20:50 MCH 29.8 pg (27.0-31.0) 10/05/18 20:50 MCHC Differential 34.0 pg (28.0-36.0) 10/05/18 20:50 RDW 13.4 % (11.5-20.0) 10/05/18 20:50 Plt Count 397 Th/cmm (150-400) 10/05/18 20:50 MPV 7.1 fl 10/05/18 20:50 Neutrophils % 77.0 % (40.0-80.0) 10/05/18 20:50 Lymphocytes % 17.2 % (20.0-50.0) L 10/05/18 20:50 Monocytes % 4.7 % (2.0-10.0) 10/05/18 20:50 Eosinophils % 1.1 % (0.0-5.0) 10/05/18 20:50 Basophils % 0.0 % (0.0-2.0) 10/05/18 20:50 PT 10.4 SECONDS (9.5-11.5) 10/05/18 20:50 INR 1.00 (0.5-1.4) 10/05/18 20:50 PTT (Actin FS) 25.0 SECONDS (26.0-38.0) L 10/05/18 20:50 Sodium 137 mEq/L (136-145) 10/05/18 20:50 Potassium 3.9 mEq/L (3.5-5.1) 10/05/18 20:50 Chloride 105 mEq/L (98-107) 10/05/18 20:50 Carbon Dioxide 24.3 mEq/L (21.0-31.0) 10/05/18 20:50 Anion Gap 11.6 (7.0-16.0) 10/05/18 20:50 BUN 13 mg/dL (7-25) 10/05/18 20:50 Creatinine 0.6 mg/dL (0.6-1.2) 10/05/18 20:50 Est GFR ( Amer) > 60.0 ml/min (>90) 10/05/18 20:50 Est GFR (Non-Af Amer) > 60.0 ml/min 10/05/18 20:50 BUN/Creatinine Ratio 21.7 10/05/18 20:50 Glucose 122 mg/dL (70-105) H 10/05/18 20:50 Calcium 9.8 mg/dL (8.6-10.3) 10/05/18 20:50 Total Bilirubin 0.3 mg/dL (0.3-1.0) 10/05/18 20:50 AST 18 U/L (13-39) 10/05/18 20:50 ALT 21 U/L (7-52) 10/05/18 20:50 Alkaline Phosphatase 87 U/L (34-104) 10/05/18 20:50 Troponin I < 0.01 ng/mL (0.01-0.05) L 10/05/18 20:50 B-Natriuretic Peptide 16.4 pg/mL (5.0-100.0) 10/05/18 20:50 Total Protein 7.1 gm/dL (6.0-8.3) 10/05/18 20:50 Albumin 4.1 gm/dL (3.7-5.3) 10/05/18 20:50 Globulin 3.0 gm/dL 10/05/18 20:50 Albumin/Globulin Ratio 1.4 (1.0-1.8) 10/05/18 20:50 Triglycerides 166 mg/dL (<150) H 10/05/18 19:30 Cholesterol 161 mg/dL (<200) 10/05/18 19:30 LDL Cholesterol Direct 93 mg/dL (75-193) 10/05/18 19:30 HDL Cholesterol 41 mg/dL (23-92) 10/05/18 19:30 TSH 0.43 uIU/ml (0.34-5.60) 10/05/18 20:50 Valproic Acid 45.8 ug/mL (50.0-100.0) L 10/12/18 14:30 RPR NONREACTIVE (NONREACTIVE) 10/05/18 20:50 - Physical Exam Vitals and I&O: Vital Signs Temp 97.6 F 10/15/18 17:09 Pulse 74 10/15/18 17:09 Resp 18 10/15/18 17:09 BP 119/67 10/15/18 17:09 Pulse Ox 95 10/15/18 17:09 Intake & Output 10/14/18 10/15/18 10/15/18 18:59 06:59 18:59 Intake Total 1400 1000 Balance 1400 1000 Intake: Oral 1400 1000 Other: # Voids 4 # Bowel Movements 1 1 Stool Characteristics Formed Formed Brown Brown Active Medications: Current Medications Acetaminophen (Tylenol) 650 mg PO Q4HR PRN PRN Reason: Mild Pain / Temp above 100 Stop: 12/04/18 22:56 Al Hydrox/Mg Hydrox/Simethicone (Maalox) 30 ml PO Q4HR PRN PRN Reason: GI DISTRESS Stop: 12/04/18 22:56 Atorvastatin Calcium (Lipitor) 10 mg PO HS KATINA; Protocol Stop: 12/05/18 20:59 Last Admin: 10/14/18 20:25 Dose: 10 mg Divalproex Sodium (Depakote Dr) 500 mg PO BID KATINA; Protocol Stop: 12/12/18 16:59 Last Admin: 10/15/18 16:44 Dose: 500 mg Docusate Sodium (Colace) 100 mg PO BID KATINA Stop: 12/05/18 08:59 Last Admin: 10/15/18 16:44 Dose: 100 mg Lorazepam (Ativan) 0.5 mg PO Q4HR PRN; Protocol PRN Reason: Anxiety Stop: 11/04/18 22:56 Last Admin: 10/10/18 16:24 Dose: 0.5 mg Magnesium Hydroxide (Milk Of Magnesia) 30 ml PO HS PRN PRN Reason: Constipation Stop: 12/05/18 00:56 Multivitamins/Vitamin C (Theragran) 1 tab PO DAILY KATINA Stop: 12/05/18 08:59 Last Admin: 10/15/18 08:40 Dose: 1 tab Olanzapine (Zyprexa) 7.5 mg PO BID KATINA; Protocol Stop: 12/07/18 16:59 Last Admin: 10/15/18 16:44 Dose: 7.5 mg Zolpidem Tartrate (Ambien) 5 mg PO HS PRN PRN Reason: Insomnia Stop: 12/04/18 22:56 General: demented HEENT: NC/AT, PERRLA, EOMI, anicteric sclerae, throat clear Neck: Supple, No JVD, No thyromegaly, +2 carotid pulse wo bruit, No LAD Lungs: CTAB Cardiovascular: RRR, Normal S1, Normal S2, without murmur Abdomen: soft, non-tender, non-distended Extremities: clear Neurological: no change Internal Medicine Assmt/Plan - Assessment Assessment: 1.HYPERLIPIDEMIA. 2.INSOMNIA. 3.DJD. 4.PSYCHSIS - Plan Plan: CONTINUE ON CURRENT MEDICATION AND DIET. Nutritional Asmnt/Malnutr-PDOC - Dietary Evaluation Malnutrition Findings (Please click <Entered> for more info): Nutritional Asmnt/Malnutrition Start: 10/08/18 15: 30 Text: Status: Complete Freq: Protocol: Document 10/08/18 15:38 RHINA (Rec: 10/08/18 15:40 [email or web address] [email or web address]) Nutritional Asmnt/Malnutrition Patient General Information Nutritional Screening Moderate Risk Diagnosis Psychosis Pertinent Medical Hx/Surgical Hx Hypercholesterolemia Subjective Information Pt is a 63-year-old female admitted on 10/05 c/o agitation . Per Meal/Nutrition Activity Record, Pt PO intake 100% meals on 10/07. HT: 411 WT: 146 LB (66.36 kg) ADJ BW: 52.46 kg BMI: 29.49 (Overweight) GI: WNL, Soft, Non-Tender BM: 10/08 x1 I/O: 1200/Not Noted Skin: WNL, Intact Suresh: 22 Diet Order: Fat controlled 50 gm Estimated Energy Needs: ( Overweight, ADJ BW) 1233-0829 kcals (20-25 kcals/ kg) 42-47g Pro (0.8-0.9/kg) 2368-4347 ml (25-30ml/kg) Pt is eating 100% of meals Per Meal/Nutrition Activity Record. Dietary is currently providing an estimated 1977 kcals and 79 gm Pro to meet 100% kcal and 100+% Pro needs. Current Diet Order/ Nutrition Support Fat controlled 50 gm Pertinent Medications Maalox (PRN), Lipitor, Colace, MOM (PRN), Theragran Pertinent Labs 10/05: Hgb/Hct 12.8/37.6, Glucose 122 Nutritional Hx/Data Height 1.5 m Height (Calculated Centimeters) 149.9 Current Weight (lbs) 66.224 kg Weight (Calculated Kilograms) 66.2 Weight (Calculated Grams) 05105.5 [place] Body Weight 43.2 kg % [place] Body Weight 154 Body Mass Index (BMI) 29.5 Weight Status Overweight GI Symptoms GI Symptoms None Last BM 10/08 x1 Skin Integrity/Comment: WNL, Intact Suresh: 22 Current %PO Good (75-100%) Estimated Nutritional Goals BEE in Kcals: Adj wt of IBW Calories/Kcals/Kg 20-25 Kcals Calculated 2330-8976 Protein: Adj wt of IBW Protein g/k.8-0.9 Protein Calculated 42-47 Fluid: ml 2025-6360 ml (25-30ml/kg) Nutritional Problem No current Nutrition Prob Problem N/A Etiology N/A Signs/Symptoms: N/A Malnutrition Related to Morbid Obesity Malnutrition related to morbid obesity No Intervention/Recommendation Comments 1.Continue with Fat controlled 50 gm diet as ordered. Expected Outcomes/Goals Expected Outcomes/Goals 1.PO intake to continue to meet 75% of nutritional needs. 2.Monitor PO intake, wt, nutrition related labs, and skin integrity. 3.F/U as low risk in 7 days,
[2018-10-15] MEDS: Atorvastatin Calcium 10 MG TAB PO SCH (21:24)
[2018-10-16] MEDS: Multivitamin Tab PO SCH (08:28)
--- NOTE | 2018-10-16 18:18 | Internal Medicine Prog Note ---
Internal Medicine Subjective - Subjective Service Date: 10/16/18 Patient seen and examined:: without staff (SHE IS NOT COHERENT) Patient is:: awake, verbal, confused Per staff patient has:: no adverse event Internal Medicine Objective - Results Result Diagrams: 10/05/18 20:50 10/05/18 20:50 Recent Labs: Laboratory Last Values WBC 10.7 Th/cmm (4.8-10.8) 10/05/18 20:50 RBC 4.29 Mil/cmm (3.80-5.10) 10/05/18 20:50 Hgb 12.8 gm/dL (12-16) 10/05/18 20:50 Hct 37.6 % (41.0-60) L 10/05/18 20:50 MCV 87.8 fl (81-100) 10/05/18 20:50 MCH 29.8 pg (27.0-31.0) 10/05/18 20:50 MCHC Differential 34.0 pg (28.0-36.0) 10/05/18 20:50 RDW 13.4 % (11.5-20.0) 10/05/18 20:50 Plt Count 397 Th/cmm (150-400) 10/05/18 20:50 MPV 7.1 fl 10/05/18 20:50 Neutrophils % 77.0 % (40.0-80.0) 10/05/18 20:50 Lymphocytes % 17.2 % (20.0-50.0) L 10/05/18 20:50 Monocytes % 4.7 % (2.0-10.0) 10/05/18 20:50 Eosinophils % 1.1 % (0.0-5.0) 10/05/18 20:50 Basophils % 0.0 % (0.0-2.0) 10/05/18 20:50 PT 10.4 SECONDS (9.5-11.5) 10/05/18 20:50 INR 1.00 (0.5-1.4) 10/05/18 20:50 PTT (Actin FS) 25.0 SECONDS (26.0-38.0) L 10/05/18 20:50 Sodium 137 mEq/L (136-145) 10/05/18 20:50 Potassium 3.9 mEq/L (3.5-5.1) 10/05/18 20:50 Chloride 105 mEq/L (98-107) 10/05/18 20:50 Carbon Dioxide 24.3 mEq/L (21.0-31.0) 10/05/18 20:50 Anion Gap 11.6 (7.0-16.0) 10/05/18 20:50 BUN 13 mg/dL (7-25) 10/05/18 20:50 Creatinine 0.6 mg/dL (0.6-1.2) 10/05/18 20:50 Est GFR ( Amer) > 60.0 ml/min (>90) 10/05/18 20:50 Est GFR (Non-Af Amer) > 60.0 ml/min 10/05/18 20:50 BUN/Creatinine Ratio 21.7 10/05/18 20:50 Glucose 122 mg/dL (70-105) H 10/05/18 20:50 Calcium 9.8 mg/dL (8.6-10.3) 10/05/18 20:50 Total Bilirubin 0.3 mg/dL (0.3-1.0) 10/05/18 20:50 AST 18 U/L (13-39) 10/05/18 20:50 ALT 21 U/L (7-52) 10/05/18 20:50 Alkaline Phosphatase 87 U/L (34-104) 10/05/18 20:50 Troponin I < 0.01 ng/mL (0.01-0.05) L 10/05/18 20:50 B-Natriuretic Peptide 16.4 pg/mL (5.0-100.0) 10/05/18 20:50 Total Protein 7.1 gm/dL (6.0-8.3) 10/05/18 20:50 Albumin 4.1 gm/dL (3.7-5.3) 10/05/18 20:50 Globulin 3.0 gm/dL 10/05/18 20:50 Albumin/Globulin Ratio 1.4 (1.0-1.8) 10/05/18 20:50 Triglycerides 166 mg/dL (<150) H 10/05/18 19:30 Cholesterol 161 mg/dL (<200) 10/05/18 19:30 LDL Cholesterol Direct 93 mg/dL (75-193) 10/05/18 19:30 HDL Cholesterol 41 mg/dL (23-92) 10/05/18 19:30 TSH 0.43 uIU/ml (0.34-5.60) 10/05/18 20:50 Valproic Acid 45.8 ug/mL (50.0-100.0) L 10/12/18 14:30 RPR NONREACTIVE (NONREACTIVE) 10/05/18 20:50 - Physical Exam Vitals and I&O: Vital Signs Temp 97.7 F 10/16/18 14:26 Pulse 86 10/16/18 14:26 Resp 20 10/16/18 14:26 BP 144/68 10/16/18 14:26 Pulse Ox 98 10/16/18 14:26 Intake & Output 10/15/18 10/16/18 10/16/18 18:59 06:59 18:59 Intake Total 1000 Balance 1000 Intake: Oral 1000 Other: # Voids 4 # Bowel Movements 1 Stool Characteristics Formed Formed Brown Brown Active Medications: Current Medications Acetaminophen (Tylenol) 650 mg PO Q4HR PRN PRN Reason: Mild Pain / Temp above 100 Stop: 12/04/18 22:56 Al Hydrox/Mg Hydrox/Simethicone (Maalox) 30 ml PO Q4HR PRN PRN Reason: GI DISTRESS Stop: 12/04/18 22:56 Atorvastatin Calcium (Lipitor) 10 mg PO HS KATINA; Protocol Stop: 12/05/18 20:59 Last Admin: 10/15/18 21:24 Dose: 10 mg Divalproex Sodium (Depakote Dr) 500 mg PO BID KATINA; Protocol Stop: 12/12/18 16:59 Last Admin: 10/16/18 17:49 Dose: 500 mg Docusate Sodium (Colace) 100 mg PO BID KATINA Stop: 12/05/18 08:59 Last Admin: 10/16/18 17:49 Dose: 100 mg Lorazepam (Ativan) 0.5 mg PO Q4HR PRN; Protocol PRN Reason: Anxiety Stop: 11/04/18 22:56 Last Admin: 10/10/18 16:24 Dose: 0.5 mg Magnesium Hydroxide (Milk Of Magnesia) 30 ml PO HS PRN PRN Reason: Constipation Stop: 12/05/18 00:56 Multivitamins/Vitamin C (Theragran) 1 tab PO DAILY KATINA Stop: 12/05/18 08:59 Last Admin: 10/16/18 08:28 Dose: 1 tab Olanzapine (Zyprexa) 7.5 mg PO BID KATINA; Protocol Stop: 12/07/18 16:59 Last Admin: 10/16/18 17:49 Dose: 7.5 mg Zolpidem Tartrate (Ambien) 5 mg PO HS PRN PRN Reason: Insomnia Stop: 12/04/18 22:56 General: demented HEENT: NC/AT, PERRLA, EOMI, anicteric sclerae, throat clear Neck: Supple, No JVD, No thyromegaly, +2 carotid pulse wo bruit, No LAD Lungs: CTAB Cardiovascular: RRR, Normal S1, Normal S2, without murmur Abdomen: soft, non-tender, non-distended Extremities: clear Neurological: no change Internal Medicine Assmt/Plan - Assessment Assessment: 1.HYPERLIPIDEMIA. 2.INSOMNIA. 3.DJD. 4.PSYCHSIS - Plan Plan: CONTINUE ON CURRENT MEDICATION AND DIET. Nutritional Asmnt/Malnutr-PDOC - Dietary Evaluation Malnutrition Findings (Please click <Entered> for more info): Nutritional Asmnt/Malnutrition Start: 10/08/18 15: 30 Text: Status: Complete Freq: Protocol: Document 10/08/18 15:38 RHINA (Rec: 10/08/18 15:40 [email or web address] [email or web address]) Nutritional Asmnt/Malnutrition Patient General Information Nutritional Screening Moderate Risk Diagnosis Psychosis Pertinent Medical Hx/Surgical Hx Hypercholesterolemia Subjective Information Pt is a 63-year-old female admitted on 10/05 c/o agitation . Per Meal/Nutrition Activity Record, Pt PO intake 100% meals on 10/07. HT: 411 WT: 146 LB (66.36 kg) ADJ BW: 52.46 kg BMI: 29.49 (Overweight) GI: WNL, Soft, Non-Tender BM: 10/08 x1 I/O: 1200/Not Noted Skin: WNL, Intact Suresh: 22 Diet Order: Fat controlled 50 gm Estimated Energy Needs: ( Overweight, ADJ BW) 4172-4675 kcals (20-25 kcals/ kg) 42-47g Pro (0.8-0.9/kg) 8476-4233 ml (25-30ml/kg) Pt is eating 100% of meals Per Meal/Nutrition Activity Record. Dietary is currently providing an estimated 1977 kcals and 79 gm Pro to meet 100% kcal and 100+% Pro needs. Current Diet Order/ Nutrition Support Fat controlled 50 gm Pertinent Medications Maalox (PRN), Lipitor, Colace, MOM (PRN), Theragran Pertinent Labs 10/05: Hgb/Hct 12.8/37.6, Glucose 122 Nutritional Hx/Data Height 1.5 m Height (Calculated Centimeters) 149.9 Current Weight (lbs) 66.224 kg Weight (Calculated Kilograms) 66.2 Weight (Calculated Grams) 39140.5 [place] Body Weight 43.2 kg % [place] Body Weight 154 Body Mass Index (BMI) 29.5 Weight Status Overweight GI Symptoms GI Symptoms None Last BM 10/08 x1 Skin Integrity/Comment: WNL, Intact Suresh: 22 Current %PO Good (75-100%) Estimated Nutritional Goals BEE in Kcals: Adj wt of IBW Calories/Kcals/Kg 20-25 Kcals Calculated 3186-1094 Protein: Adj wt of IBW Protein g/k.8-0.9 Protein Calculated 42-47 Fluid: ml 8506-4116 ml (25-30ml/kg) Nutritional Problem No current Nutrition Prob Problem N/A Etiology N/A Signs/Symptoms: N/A Malnutrition Related to Morbid Obesity Malnutrition related to morbid obesity No Intervention/Recommendation Comments 1.Continue with Fat controlled 50 gm diet as ordered. Expected Outcomes/Goals Expected Outcomes/Goals 1.PO intake to continue to meet 75% of nutritional needs. 2.Monitor PO intake, wt, nutrition related labs, and skin integrity. 3.F/U as low risk in 7 days,
--- NOTE | 2018-10-16 19:20 | Progress Notes ---
DATE: 10/16/2018 SUBJECTIVE: The patient was seen and evaluated. The patient's chart reviewed. This is Dr. Pate covering for Dr. Day. IDENTIFYING DATA: A 63-year-old female brought in here from [place] with a chief complaint of "I refused to do a sex act." She was observed to be fighting with staff and other residents, reporting she was . Today on [id number] evaluation, the patient continues to perseverate about being discharged, at times disorganized and needs a lot of redirection. Overnight, nursing staff reported the patient continues at times to respond to internal stimuli, needs redirection to maintain a simple conversation. MENTAL STATUS EXAMINATION: Disorganized, although mild redirection is needed per staff. It is noted that the patient continues to improve with the current medication regimen. ASSESSMENT AND PLAN: History of unspecified mood disorder. We will continue monitoring and evaluating primary psychiatrist's treatment plan and goals. She continues to present with the current medication regimen. ADDENDUM: Reconciliation medication reviewed, Depakote 500 mg p.o. b.i.d., olanzapine 7.5 b.i.d. JOB# [id number]
[2018-10-16] MEDS: Atorvastatin Calcium 10 MG TAB PO SCH (20:25)
[2018-10-17] MEDS: Multivitamin Tab PO SCH (08:23)
--- NOTE | 2018-10-17 18:27 | Internal Medicine Prog Note ---
Internal Medicine Subjective - Subjective Service Date: 10/17/18 Patient seen and examined:: without staff (SHE IS CONFUSED) Patient is:: awake, verbal, confused Per staff patient has:: no adverse event Internal Medicine Objective - Results Result Diagrams: 10/05/18 20:50 10/05/18 20:50 Recent Labs: Laboratory Last Values WBC 10.7 Th/cmm (4.8-10.8) 10/05/18 20:50 RBC 4.29 Mil/cmm (3.80-5.10) 10/05/18 20:50 Hgb 12.8 gm/dL (12-16) 10/05/18 20:50 Hct 37.6 % (41.0-60) L 10/05/18 20:50 MCV 87.8 fl (81-100) 10/05/18 20:50 MCH 29.8 pg (27.0-31.0) 10/05/18 20:50 MCHC Differential 34.0 pg (28.0-36.0) 10/05/18 20:50 RDW 13.4 % (11.5-20.0) 10/05/18 20:50 Plt Count 397 Th/cmm (150-400) 10/05/18 20:50 MPV 7.1 fl 10/05/18 20:50 Neutrophils % 77.0 % (40.0-80.0) 10/05/18 20:50 Lymphocytes % 17.2 % (20.0-50.0) L 10/05/18 20:50 Monocytes % 4.7 % (2.0-10.0) 10/05/18 20:50 Eosinophils % 1.1 % (0.0-5.0) 10/05/18 20:50 Basophils % 0.0 % (0.0-2.0) 10/05/18 20:50 PT 10.4 SECONDS (9.5-11.5) 10/05/18 20:50 INR 1.00 (0.5-1.4) 10/05/18 20:50 PTT (Actin FS) 25.0 SECONDS (26.0-38.0) L 10/05/18 20:50 Sodium 137 mEq/L (136-145) 10/05/18 20:50 Potassium 3.9 mEq/L (3.5-5.1) 10/05/18 20:50 Chloride 105 mEq/L (98-107) 10/05/18 20:50 Carbon Dioxide 24.3 mEq/L (21.0-31.0) 10/05/18 20:50 Anion Gap 11.6 (7.0-16.0) 10/05/18 20:50 BUN 13 mg/dL (7-25) 10/05/18 20:50 Creatinine 0.6 mg/dL (0.6-1.2) 10/05/18 20:50 Est GFR ( Amer) > 60.0 ml/min (>90) 10/05/18 20:50 Est GFR (Non-Af Amer) > 60.0 ml/min 10/05/18 20:50 BUN/Creatinine Ratio 21.7 10/05/18 20:50 Glucose 122 mg/dL (70-105) H 10/05/18 20:50 Calcium 9.8 mg/dL (8.6-10.3) 10/05/18 20:50 Total Bilirubin 0.3 mg/dL (0.3-1.0) 10/05/18 20:50 AST 18 U/L (13-39) 10/05/18 20:50 ALT 21 U/L (7-52) 10/05/18 20:50 Alkaline Phosphatase 87 U/L (34-104) 10/05/18 20:50 Troponin I < 0.01 ng/mL (0.01-0.05) L 10/05/18 20:50 B-Natriuretic Peptide 16.4 pg/mL (5.0-100.0) 10/05/18 20:50 Total Protein 7.1 gm/dL (6.0-8.3) 10/05/18 20:50 Albumin 4.1 gm/dL (3.7-5.3) 10/05/18 20:50 Globulin 3.0 gm/dL 10/05/18 20:50 Albumin/Globulin Ratio 1.4 (1.0-1.8) 10/05/18 20:50 Triglycerides 166 mg/dL (<150) H 10/05/18 19:30 Cholesterol 161 mg/dL (<200) 10/05/18 19:30 LDL Cholesterol Direct 93 mg/dL (75-193) 10/05/18 19:30 HDL Cholesterol 41 mg/dL (23-92) 10/05/18 19:30 TSH 0.43 uIU/ml (0.34-5.60) 10/05/18 20:50 Valproic Acid 45.8 ug/mL (50.0-100.0) L 10/12/18 14:30 RPR NONREACTIVE (NONREACTIVE) 10/05/18 20:50 - Physical Exam Vitals and I&O: Vital Signs Temp 96.3 F 10/17/18 14:09 Pulse 81 10/17/18 14:09 Resp 18 10/17/18 14:09 BP 125/58 10/17/18 14:09 Pulse Ox 94 10/17/18 14:09 Intake & Output 10/16/18 10/17/18 10/17/18 18:59 06:59 18:59 Intake Total 120 Balance 120 Intake: Oral 120 Other: # Voids 3 3 3 # Bowel Movements 1 1 Stool Characteristics Formed Formed Formed Brown Brown Brown Active Medications: Current Medications Acetaminophen (Tylenol) 650 mg PO Q4HR PRN PRN Reason: Mild Pain / Temp above 100 Stop: 12/04/18 22:56 Al Hydrox/Mg Hydrox/Simethicone (Maalox) 30 ml PO Q4HR PRN PRN Reason: GI DISTRESS Stop: 12/04/18 22:56 Atorvastatin Calcium (Lipitor) 10 mg PO HS KATINA; Protocol Stop: 12/05/18 20:59 Last Admin: 10/16/18 20:25 Dose: 10 mg Divalproex Sodium (Depakote Dr) 500 mg PO BID KATINA; Protocol Stop: 12/12/18 16:59 Last Admin: 10/17/18 17:17 Dose: 500 mg Docusate Sodium (Colace) 100 mg PO BID KATINA Stop: 12/05/18 08:59 Last Admin: 10/17/18 17:17 Dose: 100 mg Lorazepam (Ativan) 0.5 mg PO Q4HR PRN; Protocol PRN Reason: Anxiety Stop: 11/04/18 22:56 Last Admin: 10/10/18 16:24 Dose: 0.5 mg Magnesium Hydroxide (Milk Of Magnesia) 30 ml PO HS PRN PRN Reason: Constipation Stop: 12/05/18 00:56 Multivitamins/Vitamin C (Theragran) 1 tab PO DAILY KATINA Stop: 12/05/18 08:59 Last Admin: 10/17/18 08:23 Dose: 1 tab Olanzapine (Zyprexa) 7.5 mg PO BID KATINA; Protocol Stop: 12/07/18 16:59 Last Admin: 10/17/18 17:17 Dose: 7.5 mg Zolpidem Tartrate (Ambien) 5 mg PO HS PRN PRN Reason: Insomnia Stop: 12/04/18 22:56 General: demented HEENT: NC/AT, PERRLA, EOMI, anicteric sclerae, throat clear Neck: Supple, No JVD, No thyromegaly, +2 carotid pulse wo bruit, No LAD Lungs: CTAB Cardiovascular: RRR, Normal S1, Normal S2, without murmur Abdomen: soft, non-tender, non-distended Extremities: clear Neurological: no change Internal Medicine Assmt/Plan - Assessment Assessment: 1.HYPERLIPIDEMIA. 2.INSOMNIA. 3.DJD. 4.PSYCHSIS - Plan Plan: CONTINUE ON CURRENT MEDICATION AND DIET. Nutritional Asmnt/Malnutr-PDOC - Dietary Evaluation Malnutrition Findings (Please click <Entered> for more info): Nutritional Asmnt/Malnutrition Start: 10/08/18 15: 30 Text: Status: Complete Freq: Protocol: Document 10/08/18 15:38 RHINA (Rec: 10/08/18 15:40 RHINA [email or web address]) Nutritional Asmnt/Malnutrition Patient General Information Nutritional Screening Moderate Risk Diagnosis Psychosis Pertinent Medical Hx/Surgical Hx Hypercholesterolemia Subjective Information Pt is a 63-year-old female admitted on 10/05 c/o agitation . Per Meal/Nutrition Activity Record, Pt PO intake 100% meals on 10/07. HT: 411 WT: 146 LB (66.36 kg) ADJ BW: 52.46 kg BMI: 29.49 (Overweight) GI: WNL, Soft, Non-Tender BM: 10/08 x1 I/O: 1200/Not Noted Skin: WNL, Intact Suresh: 22 Diet Order: Fat controlled 50 gm Estimated Energy Needs: ( Overweight, ADJ BW) 5080-1736 kcals (20-25 kcals/ kg) 42-47g Pro (0.8-0.9/kg) 4788-8506 ml (25-30ml/kg) Pt is eating 100% of meals Per Meal/Nutrition Activity Record. Dietary is currently providing an estimated 1977 kcals and 79 gm Pro to meet 100% kcal and 100+% Pro needs. Current Diet Order/ Nutrition Support Fat controlled 50 gm Pertinent Medications Maalox (PRN), Lipitor, Colace, MOM (PRN), Theragran Pertinent Labs 10/05: Hgb/Hct 12.8/37.6, Glucose 122 Nutritional Hx/Data Height 1.5 m Height (Calculated Centimeters) 149.9 Current Weight (lbs) 66.224 kg Weight (Calculated Kilograms) 66.2 Weight (Calculated Grams) 91264.5 [place] Body Weight 43.2 kg % [place] Body Weight 154 Body Mass Index (BMI) 29.5 Weight Status Overweight GI Symptoms GI Symptoms None Last BM 10/08 x1 Skin Integrity/Comment: WNL, Intact Suresh: 22 Current %PO Good (75-100%) Estimated Nutritional Goals BEE in Kcals: Adj wt of IBW Calories/Kcals/Kg 20-25 Kcals Calculated 5644-8349 Protein: Adj wt of IBW Protein g/k.8-0.9 Protein Calculated 42-47 Fluid: ml 1419-9466 ml (25-30ml/kg) Nutritional Problem No current Nutrition Prob Problem N/A Etiology N/A Signs/Symptoms: N/A Malnutrition Related to Morbid Obesity Malnutrition related to morbid obesity No Intervention/Recommendation Comments 1.Continue with Fat controlled 50 gm diet as ordered. Expected Outcomes/Goals Expected Outcomes/Goals 1.PO intake to continue to meet 75% of nutritional needs. 2.Monitor PO intake, wt, nutrition related labs, and skin integrity. 3.F/U as low risk in 7 days,
[2018-10-17] MEDS: Atorvastatin Calcium 10 MG TAB PO SCH (20:12)
--- NOTE | 2018-10-18 05:04 | Progress Notes ---
DATE: 10/17/[address] Day. Today on [id number] evaluation, the patient denies any side effects to medication. The patient reports that she does not need any sleep. She has not slept for 5 years, and she cannot get better without sleep, although nursing staff reported the patient did sleep well last night and eating better. MENTAL STATUS EXAMINATION: No agitation, no aggressive behavior, less ambivalence. ASSESSMENT AND PLAN: The patient with stabilizing behavior. We will continue with primary psychiatrist's treatment plan and goals as she continues to show some minimal improvement with the current medication regimen. [facility]# [id number]
[2018-10-18] MEDS: Multivitamin Tab PO SCH (09:04)
--- NOTE | 2018-10-18 20:16 | Internal Medicine Prog Note ---
Internal Medicine Subjective - Subjective Service Date: 10/18/18 Patient seen and examined:: without staff (SHE IS STABLE) Patient is:: awake, verbal, confused Per staff patient has:: no adverse event Internal Medicine Objective - Results Result Diagrams: 10/05/18 20:50 10/05/18 20:50 Recent Labs: Laboratory Last Values WBC 10.7 Th/cmm (4.8-10.8) 10/05/18 20:50 RBC 4.29 Mil/cmm (3.80-5.10) 10/05/18 20:50 Hgb 12.8 gm/dL (12-16) 10/05/18 20:50 Hct 37.6 % (41.0-60) L 10/05/18 20:50 MCV 87.8 fl (81-100) 10/05/18 20:50 MCH 29.8 pg (27.0-31.0) 10/05/18 20:50 MCHC Differential 34.0 pg (28.0-36.0) 10/05/18 20:50 RDW 13.4 % (11.5-20.0) 10/05/18 20:50 Plt Count 397 Th/cmm (150-400) 10/05/18 20:50 MPV 7.1 fl 10/05/18 20:50 Neutrophils % 77.0 % (40.0-80.0) 10/05/18 20:50 Lymphocytes % 17.2 % (20.0-50.0) L 10/05/18 20:50 Monocytes % 4.7 % (2.0-10.0) 10/05/18 20:50 Eosinophils % 1.1 % (0.0-5.0) 10/05/18 20:50 Basophils % 0.0 % (0.0-2.0) 10/05/18 20:50 PT 10.4 SECONDS (9.5-11.5) 10/05/18 20:50 INR 1.00 (0.5-1.4) 10/05/18 20:50 PTT (Actin FS) 25.0 SECONDS (26.0-38.0) L 10/05/18 20:50 Sodium 137 mEq/L (136-145) 10/05/18 20:50 Potassium 3.9 mEq/L (3.5-5.1) 10/05/18 20:50 Chloride 105 mEq/L (98-107) 10/05/18 20:50 Carbon Dioxide 24.3 mEq/L (21.0-31.0) 10/05/18 20:50 Anion Gap 11.6 (7.0-16.0) 10/05/18 20:50 BUN 13 mg/dL (7-25) 10/05/18 20:50 Creatinine 0.6 mg/dL (0.6-1.2) 10/05/18 20:50 Est GFR ( Amer) > 60.0 ml/min (>90) 10/05/18 20:50 Est GFR (Non-Af Amer) > 60.0 ml/min 10/05/18 20:50 BUN/Creatinine Ratio 21.7 10/05/18 20:50 Glucose 122 mg/dL (70-105) H 10/05/18 20:50 Calcium 9.8 mg/dL (8.6-10.3) 10/05/18 20:50 Total Bilirubin 0.3 mg/dL (0.3-1.0) 10/05/18 20:50 AST 18 U/L (13-39) 10/05/18 20:50 ALT 21 U/L (7-52) 10/05/18 20:50 Alkaline Phosphatase 87 U/L (34-104) 10/05/18 20:50 Troponin I < 0.01 ng/mL (0.01-0.05) L 10/05/18 20:50 B-Natriuretic Peptide 16.4 pg/mL (5.0-100.0) 10/05/18 20:50 Total Protein 7.1 gm/dL (6.0-8.3) 10/05/18 20:50 Albumin 4.1 gm/dL (3.7-5.3) 10/05/18 20:50 Globulin 3.0 gm/dL 10/05/18 20:50 Albumin/Globulin Ratio 1.4 (1.0-1.8) 10/05/18 20:50 Triglycerides 166 mg/dL (<150) H 10/05/18 19:30 Cholesterol 161 mg/dL (<200) 10/05/18 19:30 LDL Cholesterol Direct 93 mg/dL (75-193) 10/05/18 19:30 HDL Cholesterol 41 mg/dL (23-92) 10/05/18 19:30 TSH 0.43 uIU/ml (0.34-5.60) 10/05/18 20:50 Valproic Acid 45.8 ug/mL (50.0-100.0) L 10/12/18 14:30 RPR NONREACTIVE (NONREACTIVE) 10/05/18 20:50 - Physical Exam Vitals and I&O: Vital Signs Temp 98 F 10/18/18 14:42 Pulse 86 10/18/18 14:42 Resp 18 10/18/18 19:51 BP 135/51 10/18/18 14:42 Pulse Ox 96 10/18/18 14:42 Intake & Output 10/18/18 10/18/18 10/19/18 06:59 18:59 06:59 Intake Total 120 Balance 120 Intake: Oral 120 Other: # Voids 3 Stool Characteristics Formed Formed Brown Brown Active Medications: Current Medications Acetaminophen (Tylenol) 650 mg PO Q4HR PRN PRN Reason: Mild Pain / Temp above 100 Stop: 12/04/18 22:56 Last Admin: 10/18/18 06:44 Dose: 650 mg Al Hydrox/Mg Hydrox/Simethicone (Maalox) 30 ml PO Q4HR PRN PRN Reason: GI DISTRESS Stop: 12/04/18 22:56 Atorvastatin Calcium (Lipitor) 10 mg PO HS [facility]; Protocol Stop: 12/05/18 20:59 Last Admin: 10/17/18 20:12 Dose: 10 mg Divalproex Sodium (Depakote Dr) 500 mg PO BID [facility]; Protocol Stop: 12/12/18 16:59 Last Admin: 10/18/18 17:47 Dose: 500 mg Docusate Sodium (Colace) 100 mg PO BID [facility] Stop: 12/05/18 08:59 Last Admin: 10/18/18 17:47 Dose: 100 mg Lorazepam (Ativan) 0.5 mg PO Q4HR PRN; Protocol PRN Reason: Anxiety Stop: 11/04/18 22:56 Last Admin: 10/10/18 16:24 Dose: 0.5 mg Magnesium Hydroxide (Milk Of Magnesia) 30 ml PO HS PRN PRN Reason: Constipation Stop: 12/05/18 00:56 Multivitamins/Vitamin C (Theragran) 1 tab PO DAILY [facility] Stop: 12/05/18 08:59 Last Admin: 10/18/18 09:04 Dose: 1 tab Olanzapine (Zyprexa) 10 mg PO BID [facility]; Protocol Stop: 12/17/18 16:59 Last Admin: 10/18/18 17:47 Dose: 10 mg Zolpidem Tartrate (Ambien) 5 mg PO HS PRN PRN Reason: Insomnia Stop: 12/04/18 22:56 General: demented HEENT: NC/AT, PERRLA, EOMI, anicteric sclerae, throat clear Neck: Supple, No JVD, No thyromegaly, +2 carotid pulse wo bruit, No LAD Lungs: CTAB Cardiovascular: RRR, Normal S1, Normal S2, without murmur Abdomen: soft, non-tender, non-distended Extremities: clear Neurological: no change Internal Medicine Assmt/Plan - Assessment Assessment: 1.HYPERLIPIDEMIA. 2.INSOMNIA. 3.DJD. 4.PSYCHSIS - Plan Plan: CONTINUE ON CURRENT MEDICATION AND DIET. Nutritional Asmnt/Malnutr-PDOC - Dietary Evaluation Malnutrition Findings (Please click <Entered> for more info): Nutritional Asmnt/Malnutrition Start: 10/08/18 15: 30 Text: Status: Complete Freq: Protocol: Document 10/08/18 15:38 RHINA (Rec: 10/08/18 15:40 RHINA [email or web address]) Nutritional Asmnt/Malnutrition Patient General Information Nutritional Screening Moderate Risk Diagnosis Psychosis Pertinent Medical Hx/Surgical Hx Hypercholesterolemia Subjective Information Pt is a 63-year-old female admitted on 10/05 c/o agitation . Per Meal/Nutrition Activity Record, Pt PO intake 100% meals on 10/07. HT: 411 WT: 146 LB (66.36 kg) ADJ BW: 52.46 kg BMI: 29.49 (Overweight) GI: WNL, Soft, Non-Tender BM: 10/08 x1 I/O: 1200/Not Noted Skin: WNL, Intact Suresh: 22 Diet Order: Fat controlled 50 gm Estimated Energy Needs: ( Overweight, ADJ BW) 4408-1804 kcals (20-25 kcals/ kg) 42-47g Pro (0.8-0.9/kg) 3772-4756 ml (25-30ml/kg) Pt is eating 100% of meals Per Meal/Nutrition Activity Record. Dietary is currently providing an estimated 1977 kcals and 79 gm Pro to meet 100% kcal and 100+% Pro needs. Current Diet Order/ Nutrition Support Fat controlled 50 gm Pertinent Medications Maalox (PRN), Lipitor, Colace, MOM (PRN), Theragran Pertinent Labs 10/05: Hgb/Hct 12.8/37.6, Glucose 122 Nutritional Hx/Data Height 1.5 m Height (Calculated Centimeters) 149.9 Current Weight (lbs) 66.224 kg Weight (Calculated Kilograms) 66.2 Weight (Calculated Grams) 81380.5 [place] Body Weight 43.2 kg % [place] Body Weight 154 Body Mass Index (BMI) 29.5 Weight Status Overweight GI Symptoms GI Symptoms None Last BM 10/08 x1 Skin Integrity/Comment: WNL, Intact Suresh: 22 Current %PO Good (75-100%) Estimated Nutritional Goals BEE in Kcals: Adj wt of IBW Calories/Kcals/Kg 20-25 Kcals Calculated 4893-9748 Protein: Adj wt of IBW Protein g/k.8-0.9 Protein Calculated 42-47 Fluid: ml 9387-7746 ml (25-30ml/kg) Nutritional Problem No current Nutrition Prob Problem N/A Etiology N/A Signs/Symptoms: N/A Malnutrition Related to Morbid Obesity Malnutrition related to morbid obesity No Intervention/Recommendation Comments 1.Continue with Fat controlled 50 gm diet as ordered. Expected Outcomes/Goals Expected Outcomes/Goals 1.PO intake to continue to meet 75% of nutritional needs. 2.Monitor PO intake, wt, nutrition related labs, and skin integrity. 3.F/U as low risk in 7 days,
[2018-10-18] MEDS: Atorvastatin Calcium 10 MG TAB PO SCH (21:00)
--- NOTE | 2018-10-18 22:59 | Progress Notes ---
DATE: 10/18/2018 Case was discussed with staff of the patient, reviewed records. The patient continues to be delusional. Continues to have poor insight. She believes that she does not need any sleep. She continues to be intrusive, needing redirection. She continues to be unpredictable and impulsive. I will be increasing her Zyprexa to 10 mg twice a day. No side effects with the medication, no sedation, no nausea, no extrapyramidal symptoms. We will continue outpatient group therapy, milieu therapy, and adjust her medication as needed. [facility]# [id number]
[2018-10-19] MEDS: Multivitamin Tab PO SCH (08:28)
--- NOTE | 2018-10-19 11:23 | Discharge Summary ---
DATE OF DISCHARGE: 10/19/2018 IDENTIFYING INFORMATION: The patient is a 63-year-old female. HISTORY OF PRESENT ILLNESS: The patient was sent from [facility] because of agitation and aggressive behavior, fighting with staff, delusional. She believes she was . She was not a very good historian. She was rambling with a history of schizophrenia and bipolar disorder. She believed that they were asking her to have sex at [facility] and she refused. She stated that she sleeps well. She eats well. Denies any intent to harm herself or anyone. Denies any visual hallucination. ____. She was not a very good historian. She was delusional about having to have sex at the [facility]. The patient has multiple prior hospitalizations. I have been seeing her at [facility] past few months. The patient denies any prior suicide attempt. She is allergic to FLUPHENAZINE, THIORIDAZINE and TRIFLUOPERAZINE. The patient was on olanzapine 5 mg at bedtime. COURSE IN THE HOSPITAL: I added Depakote to her medication. The dose was at 500 mg twice a day. Also, increase Zyprexa ____ to 10 mg twice a day. The patient was continued with atorvastatin and multivitamin. The patient progressively got better. She was no longer delusional or manic. She was sleeping well, eating well. She was not acting anyway dangerous as she improved, we felt she could be discharged to a lesser level of care. Depakote level was 45.8. RPR nonreactive. Has high triglycerides. Her chemistry panel with high blood sugar within normal range. CBC with low hematocrit, low lymphocyte, the rest within normal range. FINAL DIAGNOSES: Bipolar disorder with psychosis. MEDICAL DIAGNOSES: As per medical doctor. I will follow up with the patient at [facility] where she will follow up with primary care physician there. EXPECTED OUTCOME: Stable if the patient complies with the above. [facility]# [id number]
== END 2018-10-19 17:00 | DRG 885 ==
LOC: ER 19:43 → GERO2 21:55 → GERO 10-07 18:10
PROVIDERS: ADMIT Psychiatry & Neurology Psychiatry; ATTEND Psychiatry & Neurology Psychiatry
DX: F31.5 Bipolar disorder, current episode depressed, severe, with psychotic features (principal); E78.5 Hyperlipidemia, unspecified; M19.90 Unspecified osteoarthritis, unspecified site; F29 Unspecified psychosis not due to a substance or known physiological condition; F41.9 Anxiety disorder, unspecified; E78.00 Pure hypercholesterolemia, unspecified; Z88.8 Allergy status to other drugs, medicaments and biological substances; Z79.899 Other long term (current) drug therapy; Z87.440 Personal history of urinary (tract) infections
CPT/HCPCS: 36415-UA; 71045-TC; 80053-TC; 80061-TC; 80164-TC; 83036-90; 83880-TC; 84443-TC; 84484-TC; 85025-TC; 85610-TC; 86592-TC; 93005; G0410; J7051; Z7610

== ENCOUNTER 2019-04-04 19:14 | Inpatient (IN) | payer MEDICARE, MEDICAID ==
[2019-04-05 00:33] VITALS: BP 116/75
[2019-04-05] MEDS ORDERED: Magnesium Hydroxide (MOM) 30 mL UDC PO PRN (00:34)
[2019-04-05] MEDS ORDERED: Maalox 30 mL Cup PO PRN (00:34)
[2019-04-05] MEDS: Multivitamin Tab PO SCH (09:05)
[2019-04-05] MEDS: Polyvinyl Alcohol Ophth Soln 15 mL Bottle EACH EYE SCH ×2 (09:05→16:47)
--- NOTE | 2019-04-05 13:55 | History & Physical ---
ADMIT DATE: 04/04/2019 IDENTIFYING INFORMATION: The patient is 63-year-old female. The patient refused to answer. HISTORY OF PRESENT ILLNESS: The patient referred from [facility]. The patient was medically cleared at [facility]. The patient has been agitated, verbally abusive to staff at [facility], striking out behavior. The patient with a history of paranoid schizophrenia, bipolar disorder, anxiety and psychosis. The patient was unable to participate in meaningful conversation. She would not answer my question which is so unlike her. She was in bed and she was acting suspicious. She is a well-known case have been seeing her for the last few years at [facility] with prior admissions to this facility many times. PAST PSYCHIATRIC HISTORY: Paranoid schizophrenia and bipolar disorder. The patient denies prior suicide attempt. ALLERGIES: THE PATIENT IS ALLERGIC TO FLUPHENAZINE, THIORIDAZINE. MEDICATIONS: The patient has been on Depakote and olanzapine. No other medical condition. FAMILY AND SOCIAL HISTORY: The patient is . She has 4 children, 3 of them got killed 6 years ago. Unable to explain to me about her grade education. She used to work as a prostitute. She knew she was correct. She denies any past psychotic disorder. MENTAL STATUS EXAMINATION: The patient is appropriately dressed, not very groomed. She was in bed, somewhat mute. She looked at me when asked, which she is so unlike her because usually she rambles. She seems to be responding to internal stimuli. She was acting paranoid. She would not answer questions, would not participate in meaningful conversation. because she refused to interact. Her insight and judgment is impaired. IMPRESSION: Bipolar disorder with psychosis. MEDICAL DIAGNOSIS: As per medical doctor. Her assets, she is accepting treatment. Negative poor coping skills. INITIAL TREATMENT PLAN: The patient was started back on her medication. We will do group therapy, milieu therapy, and individual therapy. ESTIMATED LENGTH OF STAY: 3-7 days. DISCHARGE CRITERIA: Decreasing psychosis, agitation. After discharge, outpatient treatment. JOB# [id number] TORRI
[2019-04-05] MEDS ORDERED: PYRIDOXINE HCL PO SCH (21:00)
[2019-04-05] MEDS ORDERED: MELATONIN PO SCH (21:00)
--- NOTE | 2019-04-05 21:42 | History & Physical ---
ADMIT DATE: 04/04/2019 CHIEF COMPLAINT: Psychosis. HISTORY OF PRESENT ILLNESS: The patient is a 63-year-old female with long history of degenerative joint disease, chronic gastroesophageal reflux, paranoid schizophrenia, bladder dysfunction, admitted to [facility] under Dr. Day's service for evaluation and treatment. The patient denies any chest pain, shortness of breath, nausea, vomiting, fever or chills. PAST MEDICAL HISTORY: Significant for bladder dysfunction, constipation, dementia, schizophrenia. PAST SURGICAL HISTORY: No recent surgery. MEDICATIONS: Follow admission reconciliation. SOCIAL HISTORY: No smoking, no alcohol, no drug. FAMILY HISTORY: Noncontributory. REVIEW OF SYSTEMS: IMMUNOSYSTEM: No history of chronic immune disorder. CARDIOVASCULAR SYSTEM: No coronary artery disease. ENDOCRINE SYSTEM: No diabetes or thyroid problem. GASTROINTESTINAL SYSTEM: No upper or lower gastrointestinal bleed. NEUROLOGICAL SYSTEM: No seizure disorder. SKELETOMUSCULAR SYSTEM: No muscular dystrophy. HEMATOLOGICAL SYSTEM: No bleeding tendencies. RESPIRATORY: No asthma. GENITOURINARY: No dysuria or hematuria. She has bladder dysfunction. PHYSICAL EXAMINATION: GENERAL: She is awake, alert, confused. VITAL SIGNS: Temperature 97.7, heart rate 79, blood pressure 107/65. HEENT: Normocephalic. Pupils are equal and reactive to light and accommodation. Sclerae clear. NECK: Supple. Negative for lymphadenopathy, JVD or bruit. CHEST: Entry of air bilaterally normal. No rhonchi or wheezing. HEART: S1, S2 normal. No gallop rhythm. ABDOMEN: Soft, bowel sounds positive. EXTREMITIES: No edema. NEUROLOGIC: She is awake, alert, confused. No focal motor or sensory deficit. ASSESSMENT: 1. Bladder dysfunction. 2. Constipation. 3. Dementia. 4. Psychosis. PLAN: The patient in the hospital under Dr. Day's service. Medical problems addressed during hospitalization, her psychosis. Medical problem to be addressed at discharge, her bladder dysfunction, constipation. The patient is medically stable for activity. Thank you, Dr. Day, for asking me to see your patient. The patient is a full code. JOB# [id number]
[2019-04-06] MEDS: Multivitamin Tab PO SCH (08:23)
[2019-04-06] MEDS: Polyvinyl Alcohol Ophth Soln 15 mL Bottle EACH EYE SCH ×2 (08:25→16:36)
--- NOTE | 2019-04-06 19:12 | Progress Notes ---
DATE: 04/06/2019 Case was discussed with staff of the patient, reviewed records. The patient continues to be delusional. Continues to have poor insight. Today, she is a bit more cooperative, but she is staying to herself. Continues to be unable to make safe plan for self-care. No side effects with the medication, no sedation, no nausea, no extrapyramidal symptoms, tend to be intrusive, needing redirection, delusional. I will continue outpatient group therapy, milieu therapy, adjust medication as needed. No side effects, no sedation . JOB# [id number]
--- NOTE | 2019-04-06 20:43 | Internal Medicine Prog Note ---
Internal Medicine Subjective - Subjective Patient seen and examined:: with staff (SHE FEELS WELL) Patient is:: awake, verbal, ambulating, confused Per staff patient has:: no adverse event Internal Medicine Objective - Physical Exam Vitals and I&O: Vital Signs Temp 98.6 F 04/06/19 20:00 Pulse 89 04/06/19 20:00 Resp 20 04/06/19 20:00 BP 135/55 04/06/19 20:00 Pulse Ox 96 04/06/19 20:00 Intake & Output 04/06/19 04/06/19 04/07/19 06:59 18:59 06:59 Intake Total 120 Balance 120 Intake: Oral 120 Other: # Voids 3 3 # Bowel Movements 0 0 Active Medications: Current Medications Acetaminophen (Tylenol) 650 mg PO Q4HR PRN PRN Reason: Mild pain (scale 1-3) Stop: 06/04/19 00:38 Al Hydrox/Mg Hydrox/Simethicone (Maalox) 30 ml PO Q4HR PRN PRN Reason: GI DISTRESS Stop: 06/04/19 00:33 Artificial Tears (Artificial Tears Ophth Soln) 1 drop EACH EYE BID [facility] Stop: 06/04/19 08:59 Last Admin: 04/06/19 16:36 Dose: 1 drop Divalproex Sodium (Depakote Dr) 250 mg PO BID [facility]; Protocol Stop: 06/04/19 11:59 Last Admin: 04/06/19 16:36 Dose: 250 mg Docusate Sodium (Colace) 100 mg PO BID [facility] Stop: 06/04/19 08:59 Last Admin: 04/06/19 16:37 Dose: Not Given Lorazepam (Ativan) 0.5 mg PO Q4HR PRN; Protocol PRN Reason: Anxiety Stop: 05/05/19 00:33 Magnesium Hydroxide (Milk Of Magnesia) 30 ml PO HS PRN PRN Reason: Constipation Multivitamins/Vitamin C (Theragran) 1 tab PO DAILY [facility] Stop: 06/04/19 08:59 Last Admin: 04/06/19 08:23 Dose: 1 tab Olanzapine (Zyprexa) 5 mg PO TID [facility]; Protocol Stop: 06/04/19 13:59 Last Admin: 04/06/19 20:11 Dose: 5 mg Zolpidem Tartrate (Ambien) 5 mg PO HS PRN PRN Reason: Insomnia Stop: 06/04/19 00:33 General: demented HEENT: NC/AT, PERRLA, EOMI, anicteric sclerae, throat clear Neck: Supple, No JVD, No thyromegaly, +2 carotid pulse wo bruit, No LAD Lungs: CTAB Cardiovascular: RRR, Normal S1, Normal S2, without murmur Abdomen: soft, non-tender, non-distended Extremities: clear Neurological: no change Internal Medicine Assmt/Plan - Assessment Assessment: 1.BLADDER DYSFUNCTION. 2.CONSTIPATION. 3.DEMENTIA. 4.PSYCHOSIS - Plan Plan: CONTINUE ON CURRENT MEDICATION AND DIET
[2019-04-07] MEDS: Polyvinyl Alcohol Ophth Soln 15 mL Bottle EACH EYE SCH ×2 (08:13→16:46)
[2019-04-07] MEDS: Multivitamin Tab PO SCH (08:13)
--- NOTE | 2019-04-07 16:16 | Progress Notes ---
DATE: 04/07/2019 SUBJECTIVE: A 63-year-old female coming in from the hospital, agitated, verbally abusive, striking out behaviors, paranoid schizophrenic, patient not really making too much sounds on exam. Poorly oriented, very distracted. Dr. Day saw the patient yesterday and noted to have poor insight, intrusive. Per nursing staff, sleeping fairly well. No outbursts, mostly keeps to self, confused, withdrawn, talking to self, wants to clean. Medications were noted, remains impulsive, somewhat unpredictable, currently on dosing of Zyprexa. JOB# [id number]
--- NOTE | 2019-04-07 22:11 | Internal Medicine Prog Note ---
Internal Medicine Subjective - Subjective Service Date: 04/07/19 Patient seen and examined:: without staff (SHE IS DOING WELL,CONFUSED) Patient is:: awake, verbal, ambulating, confused Per staff patient has:: no adverse event Internal Medicine Objective - Physical Exam Vitals and I&O: Vital Signs Temp 98.2 F 04/07/19 21:38 Pulse 84 04/07/19 21:38 Resp 20 04/07/19 21:38 BP 122/62 04/07/19 21:38 Pulse Ox 97 04/07/19 21:38 Intake & Output 04/07/19 04/07/19 04/08/19 06:59 18:59 06:59 Intake Total 120 900 120 Balance 120 900 120 Intake: Oral 120 900 120 Other: # Voids 2 3 2 # Bowel Movements 1 0 Active Medications: Current Medications Acetaminophen (Tylenol) 650 mg PO Q4HR PRN PRN Reason: Mild pain (scale 1-3) Stop: 06/04/19 00:38 Al Hydrox/Mg Hydrox/Simethicone (Maalox) 30 ml PO Q4HR PRN PRN Reason: GI DISTRESS Stop: 06/04/19 00:33 Artificial Tears (Artificial Tears Ophth Soln) 1 drop EACH EYE BID [facility] Stop: 06/04/19 08:59 Last Admin: 04/07/19 16:46 Dose: 1 drop Divalproex Sodium (Depakote Dr) 250 mg PO BID [facility]; Protocol Stop: 06/04/19 11:59 Last Admin: 04/07/19 16:46 Dose: 250 mg Docusate Sodium (Colace) 100 mg PO BID [facility] Stop: 06/04/19 08:59 Last Admin: 04/07/19 16:46 Dose: 100 mg Lorazepam (Ativan) 0.5 mg PO Q4HR PRN; Protocol PRN Reason: Anxiety Stop: 05/05/19 00:33 Magnesium Hydroxide (Milk Of Magnesia) 30 ml PO HS PRN PRN Reason: Constipation Multivitamins/Vitamin C (Theragran) 1 tab PO DAILY [facility] Stop: 06/04/19 08:59 Last Admin: 04/07/19 08:13 Dose: 1 tab Olanzapine (Zyprexa) 5 mg PO TID [facility]; Protocol Stop: 06/04/19 13:59 Last Admin: 04/07/19 20:28 Dose: 5 mg Zolpidem Tartrate (Ambien) 5 mg PO HS PRN PRN Reason: Insomnia Stop: 06/04/19 00:33 General: demented HEENT: NC/AT, PERRLA, EOMI, anicteric sclerae, throat clear Neck: Supple, No JVD, No thyromegaly, +2 carotid pulse wo bruit, No LAD Lungs: CTAB Cardiovascular: RRR, Normal S1, Normal S2, without murmur Abdomen: soft, non-tender, non-distended Extremities: clear Neurological: no change Internal Medicine Assmt/Plan - Assessment Assessment: 1.BLADDER DYSFUNCTION. 2.CONSTIPATION. 3.DEMENTIA. 4.PSYCHOSIS - Plan Plan: CONTINUE ON CURRENT MEDICATION AND DIET
[2019-04-08] MEDS: Multivitamin Tab PO SCH (08:14)
[2019-04-08] MEDS: Polyvinyl Alcohol Ophth Soln 15 mL Bottle EACH EYE SCH ×2 (08:14→16:22)
--- NOTE | 2019-04-08 20:16 | Internal Medicine Prog Note ---
Internal Medicine Subjective - Subjective Service Date: 04/08/19 Patient seen and examined:: without staff (SHE IS CONFUSED) Patient is:: awake, verbal, ambulating, confused Per staff patient has:: no adverse event Internal Medicine Objective - Physical Exam Vitals and I&O: Vital Signs Temp 98 F 04/08/19 20:08 Pulse 83 04/08/19 20:08 Resp 20 04/08/19 20:08 BP 117/59 04/08/19 20:08 Pulse Ox 97 04/08/19 20:08 Intake & Output 04/08/19 04/08/19 04/09/19 06:59 18:59 06:59 Intake Total 120 1120 240 Output Total 1 Balance 120 1120 239 Intake: Oral 120 1120 240 Output: Other 1 Other: # Voids 2 4 1 # Bowel Movements 0 0 Active Medications: Current Medications Acetaminophen (Tylenol) 650 mg PO Q4HR PRN PRN Reason: Mild pain (scale 1-3) Stop: 06/04/19 00:38 Al Hydrox/Mg Hydrox/Simethicone (Maalox) 30 ml PO Q4HR PRN PRN Reason: GI DISTRESS Stop: 06/04/19 00:33 Artificial Tears (Artificial Tears Ophth Soln) 1 drop EACH EYE BID [facility] Stop: 06/04/19 08:59 Last Admin: 04/08/19 16:22 Dose: 1 drop Divalproex Sodium (Depakote Dr) 250 mg PO BID [facility]; Protocol Stop: 06/04/19 11:59 Last Admin: 04/08/19 16:22 Dose: 250 mg Docusate Sodium (Colace) 100 mg PO BID [facility] Stop: 06/04/19 08:59 Last Admin: 04/08/19 16:22 Dose: 100 mg Lorazepam (Ativan) 0.5 mg PO Q4HR PRN; Protocol PRN Reason: Anxiety Stop: 05/05/19 00:33 Magnesium Hydroxide (Milk Of Magnesia) 30 ml PO HS PRN PRN Reason: Constipation Multivitamins/Vitamin C (Theragran) 1 tab PO DAILY [facility] Stop: 06/04/19 08:59 Last Admin: 04/08/19 08:14 Dose: 1 tab Olanzapine (Zyprexa) 5 mg PO TID [facility]; Protocol Stop: 06/04/19 13:59 Last Admin: 04/08/19 15:27 Dose: 5 mg Zolpidem Tartrate (Ambien) 5 mg PO HS PRN PRN Reason: Insomnia Stop: 06/04/19 00:33 General: demented HEENT: NC/AT, PERRLA, EOMI, anicteric sclerae, throat clear Neck: Supple, No JVD, No thyromegaly, +2 carotid pulse wo bruit, No LAD Lungs: CTAB Cardiovascular: RRR, Normal S1, Normal S2, without murmur Abdomen: soft, non-tender, non-distended Extremities: clear Neurological: no change Internal Medicine Assmt/Plan - Assessment Assessment: 1.BLADDER DYSFUNCTION. 2.CONSTIPATION. 3.DEMENTIA. 4.PSYCHOSIS - Plan Plan: CONTINUE ON CURRENT MEDICATION AND DIET
--- NOTE | 2019-04-09 03:49 | Progress Notes ---
DATE: 04/08/2019 SUBJECTIVE: A 63-year-old female coming in from [facility] ____ agitated, verbally abusive, and striking out. The patient seems calmer today speaking with staff. Slept for about 6 hours. Calm, generally cooperative, sometimes preoccupied with her own thoughts. She remains impulsive and unpredictable. Telling staff that she is being blamed for killing her kids and talking about "eye implants," asking to see an eye doctor. PLAN: Continue to monitor. Continue antipsychotic medication. JOB# [id number]
[2019-04-09] MEDS: Multivitamin Tab PO SCH (08:21)
[2019-04-09] MEDS: Polyvinyl Alcohol Ophth Soln 15 mL Bottle EACH EYE SCH ×2 (08:21→16:50)
--- NOTE | 2019-04-09 16:50 | General Progress Note ---
Subjective - Review of Systems Service Date: 04/09/19 Subjective: resting comfortably no distress Objective - Physical Exam Vitals and I&O: Vital Signs Temp 97.8 F 04/09/19 15:37 Pulse 85 04/09/19 15:37 Resp 18 04/09/19 15:37 BP 113/56 04/09/19 15:37 Pulse Ox 95 04/09/19 15:37 Intake & Output 04/08/19 04/09/19 04/09/19 18:59 06:59 18:59 Intake Total 1120 240 Output Total 1 Balance 1120 239 Intake: Oral 1120 240 Output: Other 1 Other: # Voids 4 1 # Bowel Movements 0 Active Medications: Current Medications Acetaminophen (Tylenol) 650 mg PO Q4HR PRN PRN Reason: Mild pain (scale 1-3) Stop: 06/04/19 00:38 Al Hydrox/Mg Hydrox/Simethicone (Maalox) 30 ml PO Q4HR PRN PRN Reason: GI DISTRESS Stop: 06/04/19 00:33 Artificial Tears (Artificial Tears Ophth Soln) 1 drop EACH EYE BID [facility] Stop: 06/04/19 08:59 Last Admin: 04/09/19 08:21 Dose: 1 drop Divalproex Sodium (Depakote Dr) 250 mg PO BID [facility]; Protocol Stop: 06/04/19 11:59 Last Admin: 04/09/19 08:21 Dose: 250 mg Docusate Sodium (Colace) 100 mg PO BID [facility] Stop: 06/04/19 08:59 Last Admin: 04/09/19 08:21 Dose: 100 mg Lorazepam (Ativan) 0.5 mg PO Q4HR PRN; Protocol PRN Reason: Anxiety Stop: 05/05/19 00:33 Magnesium Hydroxide (Milk Of Magnesia) 30 ml PO HS PRN PRN Reason: Constipation Multivitamins/Vitamin C (Theragran) 1 tab PO DAILY [facility] Stop: 06/04/19 08:59 Last Admin: 04/09/19 08:21 Dose: 1 tab Olanzapine (Zyprexa) 5 mg PO TID [facility]; Protocol Stop: 06/04/19 13:59 Last Admin: 04/09/19 13:03 Dose: 5 mg Zolpidem Tartrate (Ambien) 5 mg PO HS PRN PRN Reason: Insomnia Stop: 06/04/19 00:33 Last Admin: 04/08/19 20:32 Dose: 5 mg General: Alert, No acute distress HEENT: Atraumatic, PERRLA Neck: Supple, JVD Cardiovascular: Regular rate, Normal S1, Normal S2 Lungs: Clear to auscultation Abdomen: Bowel sounds, Soft Assessment/Plan - Assessment Assessment: 1.BLADDER DYSFUNCTION. 2.CONSTIPATION. 3.DEMENTIA. 4.PSYCHOSIS - Plan Plan: continue current treatment
--- NOTE | 2019-04-09 17:14 | Progress Notes ---
DATE: 04/09/2019 SUBJECTIVE: The patient slept for about 7 hours, mumbling, talking to self, preoccupied, intrusive, making some nonsensical comments, not really answering questions appropriately. Knows where she is and her name, somewhat more redirectable than previous. Currently on dosing of Zyprexa. Ongoing delusions, psychotic symptoms. JOB# [id number]
--- NOTE | 2019-04-10 07:15 | Progress Notes ---
DATE: 04/10/2019 The patient slept about 6 hours, oriented to self, place, preoccupied, not making much sense on exam, talking nonsense, hard for me to have any sort of intelligible conversation, coming from [facility]. Medications were noted. Currently on dosing of Zyprexa, remains impulsive, unpredictable, but generally calmer. JOB# [id number]
[2019-04-10] MEDS: Multivitamin Tab PO SCH (08:52)
[2019-04-10] MEDS: Polyvinyl Alcohol Ophth Soln 15 mL Bottle EACH EYE SCH ×2 (08:52→17:39)
--- NOTE | 2019-04-10 10:10 | General Progress Note ---
Subjective - Review of Systems Service Date: 04/10/19 Subjective: resting comfortably no distress Objective - Physical Exam Vitals and I&O: Vital Signs Temp 98.2 F 04/10/19 06:04 Pulse 87 04/10/19 06:04 Resp 19 04/10/19 06:04 BP 110/51 04/10/19 06:04 Pulse Ox 93 04/10/19 06:04 Intake & Output 04/09/19 04/10/19 04/10/19 18:59 06:59 18:59 Intake Total 400 Balance 400 Intake: Oral 400 Other: # Voids 2 # Bowel Movements 0 Active Medications: Current Medications Acetaminophen (Tylenol) 650 mg PO Q4HR PRN PRN Reason: Mild pain (scale 1-3) Stop: 06/04/19 00:38 Al Hydrox/Mg Hydrox/Simethicone (Maalox) 30 ml PO Q4HR PRN PRN Reason: GI DISTRESS Stop: 06/04/19 00:33 Artificial Tears (Artificial Tears Ophth Soln) 1 drop EACH EYE BID [facility] Stop: 06/04/19 08:59 Last Admin: 04/10/19 08:52 Dose: 1 drop Divalproex Sodium (Depakote Dr) 250 mg PO BID [facility]; Protocol Stop: 06/04/19 11:59 Last Admin: 04/10/19 08:52 Dose: 250 mg Docusate Sodium (Colace) 100 mg PO BID [facility] Stop: 06/04/19 08:59 Last Admin: 04/10/19 08:52 Dose: 100 mg Lorazepam (Ativan) 0.5 mg PO Q4HR PRN; Protocol PRN Reason: Anxiety Stop: 05/05/19 00:33 Magnesium Hydroxide (Milk Of Magnesia) 30 ml PO HS PRN PRN Reason: Constipation Multivitamins/Vitamin C (Theragran) 1 tab PO DAILY [facility] Stop: 06/04/19 08:59 Last Admin: 04/10/19 08:52 Dose: 1 tab Olanzapine (Zyprexa) 5 mg PO TID [facility]; Protocol Stop: 06/04/19 13:59 Last Admin: 04/10/19 08:52 Dose: 5 mg Zolpidem Tartrate (Ambien) 5 mg PO HS PRN PRN Reason: Insomnia Stop: 06/04/19 00:33 Last Admin: 04/08/19 20:32 Dose: 5 mg General: Alert, No acute distress HEENT: Atraumatic, PERRLA Neck: Supple, JVD Cardiovascular: Regular rate, Normal S1, Normal S2 Lungs: Clear to auscultation Abdomen: Bowel sounds, Soft Assessment/Plan - Assessment Assessment: 1.BLADDER DYSFUNCTION. 2.CONSTIPATION. 3.DEMENTIA. 4.PSYCHOSIS - Plan Plan: continue current treatment
[2019-04-11] MEDS: Multivitamin Tab PO SCH (09:20)
[2019-04-11] MEDS: Polyvinyl Alcohol Ophth Soln 15 mL Bottle EACH EYE SCH ×2 (09:20→17:47)
--- NOTE | 2019-04-11 14:28 | Internal Medicine Prog Note ---
Internal Medicine Subjective - Subjective Service Date: 04/11/19 Patient seen and examined:: without staff (SHE FEELS WELL) Patient is:: awake, verbal, ambulating, confused Per staff patient has:: no adverse event Internal Medicine Objective - Physical Exam Vitals and I&O: Vital Signs Temp 97.0 F 04/11/19 06:21 Pulse 71 04/11/19 06:21 Resp 19 04/11/19 08:00 BP 126/60 04/11/19 06:21 Pulse Ox 92 04/11/19 06:21 Intake & Output 04/10/19 04/11/19 04/11/19 18:59 06:59 18:59 Intake Total 1200 240 Balance 1200 240 Intake: Oral 1200 240 Other: # Voids 4 2 # Bowel Movements 1 Active Medications: Current Medications Acetaminophen (Tylenol) 650 mg PO Q4HR PRN PRN Reason: Mild pain (scale 1-3) Stop: 06/04/19 00:38 Al Hydrox/Mg Hydrox/Simethicone (Maalox) 30 ml PO Q4HR PRN PRN Reason: GI DISTRESS Stop: 06/04/19 00:33 Artificial Tears (Artificial Tears Ophth Soln) 1 drop EACH EYE BID [facility] Stop: 06/04/19 08:59 Last Admin: 04/11/19 09:20 Dose: 1 drop Divalproex Sodium (Depakote Dr) 250 mg PO BID [facility]; Protocol Stop: 06/04/19 11:59 Last Admin: 04/11/19 09:19 Dose: 250 mg Docusate Sodium (Colace) 100 mg PO BID [facility] Stop: 06/04/19 08:59 Last Admin: 04/11/19 09:19 Dose: 100 mg Lorazepam (Ativan) 0.5 mg PO Q4HR PRN; Protocol PRN Reason: Anxiety Stop: 05/05/19 00:33 Magnesium Hydroxide (Milk Of Magnesia) 30 ml PO HS PRN PRN Reason: Constipation Multivitamins/Vitamin C (Theragran) 1 tab PO DAILY [facility] Stop: 06/04/19 08:59 Last Admin: 04/11/19 09:20 Dose: 1 tab Olanzapine (Zyprexa) 10 mg PO BID [facility]; Protocol Stop: 06/10/19 16:59 Zolpidem Tartrate (Ambien) 5 mg PO HS PRN PRN Reason: Insomnia Stop: 06/04/19 00:33 Last Admin: 04/10/19 20:51 Dose: 5 mg General: demented HEENT: NC/AT, PERRLA, EOMI, anicteric sclerae, throat clear Neck: Supple, No JVD, No thyromegaly, +2 carotid pulse wo bruit, No LAD Lungs: CTAB Cardiovascular: RRR, Normal S1, Normal S2, without murmur Abdomen: soft, non-tender, non-distended Extremities: clear Neurological: no change Internal Medicine Assmt/Plan - Assessment Assessment: 1.BLADDER DYSFUNCTION. 2.CONSTIPATION. 3.DEMENTIA. 4.PSYCHOSIS - Plan Plan: CONTINUE ON CURRENT MEDICATION AND DIET Nutritional Asmnt/Malnutr-PDOC - Dietary Evaluation Malnutrition Findings (Please click <Entered> for more info): Nutritional Asmnt/Malnutrition Start: 04/11/19 11: 22 Text: Status: Complete Freq: Protocol: Document 04/11/19 11:22 RHINA (Rec: 04/11/19 11:33 RHINA [id number]) Nutritional Asmnt/Malnutrition Patient General Information Nutritional Screening Low Risk Diagnosis Psychosis Pertinent Medical Hx/Surgical Hx Paranoid Schizophrenia, Bipolar Disorder, DJD, GERD, Bladder Dysfunction Subjective Information Pt is a 63-year-old female admitted on 04/04 d/t psychosis . Pt is eating an estimated 96 % of meals x4 days Per Meal/ Nutrition Activity Record. Dietary is currently providing an estimated 2100 kcals and 90 gm Pro, per Pt PO intake this is providing an estimated 2000 kcals and 86gm Pro to meet 100+% kcal and 100+% Pro needs. Recommend modification to Diet Rx to Cardiac d/t labs (04/04) Tags 231, Chol 247, HDL 50, LDL 130 and BMI 28.65 ( overweight). Spoke with nurse Mcdowell pertaining to diet recommendation. Anthropometrics HT: 410 WT: 137 LB (62.27 kg) ABW: 106 LB (48.29) BMI: 28.65 (Overweight) GI/ Skin Integrity GI: WNL, Soft, Non-tender BM: 04/10 x1 I/O: 1440/Not Noted Skin: WNL, Intact Suresh: 21 Diet Order: Regular Estimated Energy Needs: ( Geriatric, ABW) 0208-8229 kcals (25-30 kcals/ kg) 50-60g Pro (1.0-1.2 g/kg) 5284-8156 ml (25-30 ml/kg) Current Diet Order/ Nutrition Support Regular Pertinent Medications Maalox (PRN), Colace, MOM (PRN ), Theragran Pertinent Labs 04/04: G 111, GFR 84, Tags 231, Chol 247, HDL 50, LDL 130 Nutritional Hx/Data Height 1.47 m Height (Calculated Centimeters) 147.3 Current Weight (lbs) 62.142 kg Weight (Calculated Kilograms) 62.1 Weight (Calculated Grams) 23510.2 [place] Body Weight 96 % [place] Body Weight 143 Body Mass Index (BMI) 28.6 Weight Status Overweight GI Symptoms Last BM 04/10 x1 Skin Integrity/Comment: Skin: WNL, Intact Suresh: 21 Current %PO Good (75-100%) Estimated Nutritional Goals BEE in Kcals: Adj wt of IBW Calories/Kcals/Kg 25-30 Kcals Calculated 4012-8368 Protein: Adj wt of IBW Protein g/k.0-1.2 Protein Calculated 50-60 Fluid: ml 1096-6329 ml (25-30 ml/kg) Nutritional Problem 1. Problem Problem Altered nutrition related labs Etiology r/t pathophysiological causes Signs/Symptoms: aeb labs (04/04) Tags 231, Chol 247, HDL 50, LDL 130. Intervention/Recommendation Recommendations by RD Decrease Calorie Intake Comments Recommend modification to Diet Rx to Cardiac d/t labs (04/04) Tags 231, Chol 247, HDL 50, LDL 130 and BMI 28.65 ( overweight). Expected Outcomes/Goals Expected Outcomes/Goals 1.Recommend modification to Diet Rx to Cardiac d/t labs () Tags 231, Chol 247, HDL 50, LDL 130 and BMI 28.65 ( overweight). 2.PO intake to continue to meet >75% of estimated nutritional needs. 3.Monitor PO intake, wt, nutrition related labs, and skin integrity. 4.F/U as low risk in 7-10 days , 04/18-04/21
--- NOTE | 2019-04-11 15:17 | Progress Notes ---
DATE: 04/11/2019 Case was discussed with staff of the patient, reviewed records. The patient continues to have poor insight. Continues to be unpredictable, intrusive, needing redirection, sometimes unable to make sound, somewhat manic at times irritable. No side effects with the medication, no sedation, no nausea, no extrapyramidal symptoms. I will be increasing her Zyprexa to 10 mg twice a day. I will check her Depakote level and we will continue to work with the patient in group therapy, milieu therapy, and adjust medications as needed. JOB# [id number]
[2019-04-12] MEDS: Polyvinyl Alcohol Ophth Soln 15 mL Bottle EACH EYE SCH ×2 (08:13→17:30)
[2019-04-12] MEDS: Multivitamin Tab PO SCH (08:14)
--- NOTE | 2019-04-12 19:27 | Internal Medicine Prog Note ---
Internal Medicine Subjective - Subjective Service Date: 04/12/19 Patient seen and examined:: without staff (SHE FEELS WELL) Patient is:: awake, verbal, ambulating, confused Per staff patient has:: no adverse event Internal Medicine Objective - Physical Exam Vitals and I&O: Vital Signs Temp 97.5 F 04/12/19 14:00 Pulse 82 04/12/19 14:00 Resp 20 04/12/19 14:00 BP 120/52 04/12/19 14:00 Pulse Ox 97 04/12/19 14:00 Intake & Output 04/12/19 04/12/19 04/13/19 06:59 18:59 06:59 Intake Total 240 1300 Balance 240 1300 Intake: Oral 240 1300 Other: # Voids 2 3 # Bowel Movements 0 Active Medications: Current Medications Acetaminophen (Tylenol) 650 mg PO Q4HR PRN PRN Reason: Mild pain (scale 1-3) Stop: 06/04/19 00:38 Al Hydrox/Mg Hydrox/Simethicone (Maalox) 30 ml PO Q4HR PRN PRN Reason: GI DISTRESS Stop: 06/04/19 00:33 Artificial Tears (Artificial Tears Ophth Soln) 1 drop EACH EYE BID [facility] Stop: 06/04/19 08:59 Last Admin: 04/12/19 17:30 Dose: 1 drop Divalproex Sodium (Depakote Dr) 250 mg PO BID [facility]; Protocol Stop: 06/04/19 11:59 Last Admin: 04/12/19 16:30 Dose: 250 mg Docusate Sodium (Colace) 100 mg PO BID [facility] Stop: 06/04/19 08:59 Last Admin: 04/12/19 16:30 Dose: 100 mg Lorazepam (Ativan) 0.5 mg PO Q4HR PRN; Protocol PRN Reason: Anxiety Stop: 05/05/19 00:33 Magnesium Hydroxide (Milk Of Magnesia) 30 ml PO HS PRN PRN Reason: Constipation Multivitamins/Vitamin C (Theragran) 1 tab PO DAILY [facility] Stop: 06/04/19 08:59 Last Admin: 04/12/19 08:14 Dose: 1 tab Olanzapine (Zyprexa) 10 mg PO BID [facility]; Protocol Stop: 06/10/19 16:59 Last Admin: 04/12/19 16:30 Dose: 10 mg Zolpidem Tartrate (Ambien) 5 mg PO HS PRN PRN Reason: Insomnia Stop: 06/04/19 00:33 Last Admin: 04/10/19 20:51 Dose: 5 mg General: demented HEENT: NC/AT, PERRLA, EOMI, anicteric sclerae, throat clear Neck: Supple, No JVD, No thyromegaly, +2 carotid pulse wo bruit, No LAD Lungs: CTAB Cardiovascular: RRR, Normal S1, Normal S2, without murmur Abdomen: soft, non-tender, non-distended Extremities: clear Neurological: no change Internal Medicine Assmt/Plan - Assessment Assessment: 1.BLADDER DYSFUNCTION. 2.CONSTIPATION. 3.DEMENTIA. 4.PSYCHOSIS - Plan Plan: CONTINUE ON CURRENT MEDICATION AND DIET Nutritional Asmnt/Malnutr-PDOC - Dietary Evaluation Malnutrition Findings (Please click <Entered> for more info): Nutritional Asmnt/Malnutrition Start: 04/11/19 11: 22 Text: Status: Complete Freq: Protocol: Document 04/11/19 11:22 RHINA (Rec: 04/11/19 11:33 RHINA [id number]) Nutritional Asmnt/Malnutrition Patient General Information Nutritional Screening Low Risk Diagnosis Psychosis Pertinent Medical Hx/Surgical Hx Paranoid Schizophrenia, Bipolar Disorder, DJD, GERD, Bladder Dysfunction Subjective Information Pt is a 63-year-old female admitted on 04/04 d/t psychosis . Pt is eating an estimated 96 % of meals x4 days Per Meal/ Nutrition Activity Record. Dietary is currently providing an estimated 2100 kcals and 90 gm Pro, per Pt PO intake this is providing an estimated 2000 kcals and 86gm Pro to meet 100+% kcal and 100+% Pro needs. Recommend modification to Diet Rx to Cardiac d/t labs (04/04) Tags 231, Chol 247, HDL 50, LDL 130 and BMI 28.65 ( overweight). Spoke with nurse Mcdowell pertaining to diet recommendation. Anthropometrics HT: 410 WT: 137 LB (62.27 kg) ABW: 106 LB (48.29) BMI: 28.65 (Overweight) GI/ Skin Integrity GI: WNL, Soft, Non-tender BM: 04/10 x1 I/O: 1440/Not Noted Skin: WNL, Intact Suresh: 21 Diet Order: Regular Estimated Energy Needs: ( Geriatric, ABW) 5521-1464 kcals (25-30 kcals/ kg) 50-60g Pro (1.0-1.2 g/kg) 7694-6513 ml (25-30 ml/kg) Current Diet Order/ Nutrition Support Regular Pertinent Medications Maalox (PRN), Colace, MOM (PRN ), Theragran Pertinent Labs 04/04: G 111, GFR 84, Tags 231, Chol 247, HDL 50, LDL 130 Nutritional Hx/Data Height 1.47 m Height (Calculated Centimeters) 147.3 Current Weight (lbs) 62.142 kg Weight (Calculated Kilograms) 62.1 Weight (Calculated Grams) 39322.2 [place] Body Weight 96 % [place] Body Weight 143 Body Mass Index (BMI) 28.6 Weight Status Overweight GI Symptoms Last BM 04/10 x1 Skin Integrity/Comment: Skin: WNL, Intact Suresh: 21 Current %PO Good (75-100%) Estimated Nutritional Goals BEE in Kcals: Adj wt of IBW Calories/Kcals/Kg 25-30 Kcals Calculated 9929-8458 Protein: Adj wt of IBW Protein g/k.0-1.2 Protein Calculated 50-60 Fluid: ml 6736-3390 ml (25-30 ml/kg) Nutritional Problem 1. Problem Problem Altered nutrition related labs Etiology r/t pathophysiological causes Signs/Symptoms: aeb labs (04/04) Tags 231, Chol 247, HDL 50, LDL 130. Intervention/Recommendation Recommendations by RD Decrease Calorie Intake Comments Recommend modification to Diet Rx to Cardiac d/t labs (04/04) Tags 231, Chol 247, HDL 50, LDL 130 and BMI 28.65 ( overweight). Expected Outcomes/Goals Expected Outcomes/Goals 1.Recommend modification to Diet Rx to Cardiac d/t labs () Tags 231, Chol 247, HDL 50, LDL 130 and BMI 28.65 ( overweight). 2.PO intake to continue to meet >75% of estimated nutritional needs. 3.Monitor PO intake, wt, nutrition related labs, and skin integrity. 4.F/U as low risk in 7-10 days , 04/18-04/21
--- NOTE | 2019-04-12 22:47 | Progress Notes ---
DATE: Case was discussed with staff of the patient, reviewed records. The patient continues to be intrusive, continues to have poor insight, continues to be unable to make safe plan for self-care. She tolerated increase in Zyprexa with no side effects, no sedation, no nausea, no extrapyramidal symptoms. I increased Zyprexa 10 mg twice a day. We are waiting for a Depakote level. Also, she reports she wants to go to the board and care. I am not sure if she can live in a board and care because of impulsivity, tendency to leave without goals and end up on the streets, unable to take care of herself. We will continue outpatient group therapy, milieu therapy, and adjust medications as needed. JOB# [id number]
[2019-04-13] MEDS: Polyvinyl Alcohol Ophth Soln 15 mL Bottle EACH EYE SCH ×2 (08:26→16:54)
[2019-04-13] MEDS: Multivitamin Tab PO SCH (08:27)
--- NOTE | 2019-04-13 21:25 | Internal Medicine Prog Note ---
Internal Medicine Subjective - Subjective Service Date: 04/13/19 Patient seen and examined:: without staff (SHE IS DOING WELL) Patient is:: awake, verbal, ambulating, confused Per staff patient has:: no adverse event Internal Medicine Objective - Physical Exam Vitals and I&O: Vital Signs Temp 97.3 F 04/13/19 20:16 Pulse 62 04/13/19 20:16 Resp 18 04/13/19 20:16 BP 115/54 04/13/19 20:16 Pulse Ox 100 04/13/19 20:16 Intake & Output 04/13/19 04/13/19 04/14/19 06:59 18:59 06:59 Intake Total 1300 900 120 Balance 1300 900 120 Intake: Oral 1300 900 120 Other: # Voids 3 3 2 # Bowel Movements 0 1 0 Active Medications: Current Medications Acetaminophen (Tylenol) 650 mg PO Q4HR PRN PRN Reason: Mild pain (scale 1-3) Stop: 06/04/19 00:38 Al Hydrox/Mg Hydrox/Simethicone (Maalox) 30 ml PO Q4HR PRN PRN Reason: GI DISTRESS Stop: 06/04/19 00:33 Artificial Tears (Artificial Tears Ophth Soln) 1 drop EACH EYE BID [facility] Stop: 06/04/19 08:59 Last Admin: 04/13/19 16:54 Dose: 1 drop Divalproex Sodium (Depakote Dr) 250 mg PO Q8HR [facility]; Protocol Stop: 06/12/19 12:59 Last Admin: 04/13/19 20:37 Dose: 250 mg Docusate Sodium (Colace) 100 mg PO BID [facility] Stop: 06/04/19 08:59 Last Admin: 04/13/19 16:54 Dose: 100 mg Lorazepam (Ativan) 0.5 mg PO Q4HR PRN; Protocol PRN Reason: Anxiety Stop: 05/05/19 00:33 Magnesium Hydroxide (Milk Of Magnesia) 30 ml PO HS PRN PRN Reason: Constipation Multivitamins/Vitamin C (Theragran) 1 tab PO DAILY [facility] Stop: 06/04/19 08:59 Last Admin: 04/13/19 08:27 Dose: 1 tab Olanzapine (Zyprexa) 10 mg PO BID [facility]; Protocol Stop: 06/10/19 16:59 Last Admin: 04/13/19 16:55 Dose: 10 mg Zolpidem Tartrate (Ambien) 5 mg PO HS PRN PRN Reason: Insomnia Stop: 06/04/19 00:33 Last Admin: 04/13/19 20:37 Dose: 5 mg General: demented HEENT: NC/AT, PERRLA, EOMI, anicteric sclerae, throat clear Neck: Supple, No JVD, No thyromegaly, +2 carotid pulse wo bruit, No LAD Lungs: CTAB Cardiovascular: RRR, Normal S1, Normal S2, without murmur Abdomen: soft, non-tender, non-distended Extremities: clear Neurological: no change Internal Medicine Assmt/Plan - Assessment Assessment: 1.BLADDER DYSFUNCTION. 2.CONSTIPATION. 3.DEMENTIA. 4.PSYCHOSIS - Plan Plan: CONTINUE ON CURRENT MEDICATION AND DIET Nutritional Asmnt/Malnutr-PDOC - Dietary Evaluation Malnutrition Findings (Please click <Entered> for more info): Nutritional Asmnt/Malnutrition Start: 04/11/19 11: 22 Text: Status: Complete Freq: Protocol: Document 04/11/19 11:22 RHINA (Rec: 04/11/19 11:33 RHINA [id number]) Nutritional Asmnt/Malnutrition Patient General Information Nutritional Screening Low Risk Diagnosis Psychosis Pertinent Medical Hx/Surgical Hx Paranoid Schizophrenia, Bipolar Disorder, DJD, GERD, Bladder Dysfunction Subjective Information Pt is a 63-year-old female admitted on 04/04 d/t psychosis . Pt is eating an estimated 96 % of meals x4 days Per Meal/ Nutrition Activity Record. Dietary is currently providing an estimated 2100 kcals and 90 gm Pro, per Pt PO intake this is providing an estimated 2000 kcals and 86gm Pro to meet 100+% kcal and 100+% Pro needs. Recommend modification to Diet Rx to Cardiac d/t labs (04/04) Tags 231, Chol 247, HDL 50, LDL 130 and BMI 28.65 ( overweight). Spoke with nurse Mcdowell pertaining to diet recommendation. Anthropometrics HT: 410 WT: 137 LB (62.27 kg) ABW: 106 LB (48.29) BMI: 28.65 (Overweight) GI/ Skin Integrity GI: WNL, Soft, Non-tender BM: 04/10 x1 I/O: 1440/Not Noted Skin: WNL, Intact Suresh: 21 Diet Order: Regular Estimated Energy Needs: ( Geriatric, ABW) 4254-7617 kcals (25-30 kcals/ kg) 50-60g Pro (1.0-1.2 g/kg) 8332-2427 ml (25-30 ml/kg) Current Diet Order/ Nutrition Support Regular Pertinent Medications Maalox (PRN), Colace, MOM (PRN ), Theragran Pertinent Labs 04/04: G 111, GFR 84, Tags 231, Chol 247, HDL 50, LDL 130 Nutritional Hx/Data Height 1.47 m Height (Calculated Centimeters) 147.3 Current Weight (lbs) 62.142 kg Weight (Calculated Kilograms) 62.1 Weight (Calculated Grams) 41412.2 [place] Body Weight 96 % [place] Body Weight 143 Body Mass Index (BMI) 28.6 Weight Status Overweight GI Symptoms Last BM 04/10 x1 Skin Integrity/Comment: Skin: WNL, Intact Suresh: 21 Current %PO Good (75-100%) Estimated Nutritional Goals BEE in Kcals: Adj wt of IBW Calories/Kcals/Kg 25-30 Kcals Calculated 1241-0264 Protein: Adj wt of IBW Protein g/k.0-1.2 Protein Calculated 50-60 Fluid: ml 5347-6156 ml (25-30 ml/kg) Nutritional Problem 1. Problem Problem Altered nutrition related labs Etiology r/t pathophysiological causes Signs/Symptoms: aeb labs (04/04) Tags 231, Chol 247, HDL 50, LDL 130. Intervention/Recommendation Recommendations by RD Decrease Calorie Intake Comments Recommend modification to Diet Rx to Cardiac d/t labs (04/04) Tags 231, Chol 247, HDL 50, LDL 130 and BMI 28.65 ( overweight). Expected Outcomes/Goals Expected Outcomes/Goals 1.Recommend modification to Diet Rx to Cardiac d/t labs () Tags 231, Chol 247, HDL 50, LDL 130 and BMI 28.65 ( overweight). 2.PO intake to continue to meet >75% of estimated nutritional needs. 3.Monitor PO intake, wt, nutrition related labs, and skin integrity. 4.F/U as low risk in 7-10 days , 04/18-04/21
--- NOTE | 2019-04-13 22:41 | Progress Notes ---
DATE: 04/13/2019 SUBJECTIVE: Case was discussed with staff of the patient, reviewed records. The patient continues to be intrusive, continues to have poor insight, continues to be unable to make safe plan for self-care, easily agitated and no side effects with the medication, no sedation, no nausea, no extrapyramidal symptoms. I will be increasing her Depakote to 3 a day to help improve her impulsivity and manic symptoms and we will continue outpatient group therapy, milieu therapy, and adjust medication as needed. JOB# [id number]
[2019-04-14] MEDS: Polyvinyl Alcohol Ophth Soln 15 mL Bottle EACH EYE SCH ×2 (08:10→16:24)
[2019-04-14] MEDS: Multivitamin Tab PO SCH (08:10)
--- NOTE | 2019-04-14 12:12 | Progress Notes ---
DATE: 04/14/2019 Case was discussed with staff of the patient, reviewed records. The patient continues to be intrusive, easily agitated, continues to have poor insight, unable to make safe plan for self-care. on Depakote with no side effects. Also, Zyprexa was increased. No side effects with the medication, no sedation, no nausea, no extrapyramidal symptoms. The patient in group therapy, milieu therapy, and adjust medications as needed. JOB# [id number] [facility]
--- NOTE | 2019-04-14 20:04 | Internal Medicine Prog Note ---
Internal Medicine Subjective - Subjective Service Date: 04/14/19 Patient seen and examined:: without staff (she is doing better) Patient is:: awake, verbal, ambulating, confused Per staff patient has:: no adverse event Internal Medicine Objective - Physical Exam Vitals and I&O: Vital Signs Temp 97.7 F 04/14/19 14:00 Pulse 85 04/14/19 14:00 Resp 19 04/14/19 19:09 BP 113/51 04/14/19 14:00 Pulse Ox 95 04/14/19 14:00 Intake & Output 04/14/19 04/14/19 04/15/19 06:59 18:59 06:59 Intake Total 240 1200 Balance 240 1200 Intake: Oral 240 1200 Other: # Voids 2 # Bowel Movements 0 1 Active Medications: Current Medications Acetaminophen (Tylenol) 650 mg PO Q4HR PRN PRN Reason: Mild pain (scale 1-3) Stop: 06/04/19 00:38 Al Hydrox/Mg Hydrox/Simethicone (Maalox) 30 ml PO Q4HR PRN PRN Reason: GI DISTRESS Stop: 06/04/19 00:33 Artificial Tears (Artificial Tears Ophth Soln) 1 drop EACH EYE BID [facility] Stop: 06/04/19 08:59 Last Admin: 04/14/19 16:24 Dose: 1 drop Divalproex Sodium (Depakote Dr) 250 mg PO Q8HR [facility]; Protocol Stop: 06/12/19 12:59 Last Admin: 04/14/19 13:30 Dose: 250 mg Docusate Sodium (Colace) 100 mg PO BID [facility] Stop: 06/04/19 08:59 Last Admin: 04/14/19 16:24 Dose: 100 mg Lorazepam (Ativan) 0.5 mg PO Q4HR PRN; Protocol PRN Reason: Anxiety Stop: 05/05/19 00:33 Magnesium Hydroxide (Milk Of Magnesia) 30 ml PO HS PRN PRN Reason: Constipation Multivitamins/Vitamin C (Theragran) 1 tab PO DAILY [facility] Stop: 06/04/19 08:59 Last Admin: 04/14/19 08:10 Dose: 1 tab Olanzapine (Zyprexa) 10 mg PO BID [facility]; Protocol Stop: 06/10/19 16:59 Last Admin: 04/14/19 16:24 Dose: 10 mg Zolpidem Tartrate (Ambien) 5 mg PO HS PRN PRN Reason: Insomnia Stop: 06/04/19 00:33 Last Admin: 04/13/19 20:37 Dose: 5 mg General: demented HEENT: NC/AT, PERRLA, EOMI, anicteric sclerae, throat clear Neck: Supple, No JVD, No thyromegaly, +2 carotid pulse wo bruit, No LAD Lungs: CTAB Cardiovascular: RRR, Normal S1, Normal S2, without murmur Abdomen: soft, non-tender, non-distended Extremities: clear Neurological: no change Internal Medicine Assmt/Plan - Assessment Assessment: 1.BLADDER DYSFUNCTION. 2.CONSTIPATION. 3.DEMENTIA. 4.PSYCHOSIS - Plan Plan: CONTINUE ON CURRENT MEDICATION AND DIET Nutritional Asmnt/Malnutr-PDOC - Dietary Evaluation Malnutrition Findings (Please click <Entered> for more info): Nutritional Asmnt/Malnutrition Start: 04/11/19 11: 22 Text: Status: Complete Freq: Protocol: Document 04/11/19 11:22 RHINA (Rec: 04/11/19 11:33 RHINA [email or web address]) Nutritional Asmnt/Malnutrition Patient General Information Nutritional Screening Low Risk Diagnosis Psychosis Pertinent Medical Hx/Surgical Hx Paranoid Schizophrenia, Bipolar Disorder, DJD, GERD, Bladder Dysfunction Subjective Information Pt is a 63-year-old female admitted on 04/04 d/t psychosis . Pt is eating an estimated 96 % of meals x4 days Per Meal/ Nutrition Activity Record. Dietary is currently providing an estimated 2100 kcals and 90 gm Pro, per Pt PO intake this is providing an estimated 2000 kcals and 86gm Pro to meet 100+% kcal and 100+% Pro needs. Recommend modification to Diet Rx to Cardiac d/t labs (04/04) Tags 231, Chol 247, HDL 50, LDL 130 and BMI 28.65 ( overweight). Spoke with nurse Mcdowell pertaining to diet recommendation. Anthropometrics HT: 410 WT: 137 LB (62.27 kg) ABW: 106 LB (48.29) BMI: 28.65 (Overweight) GI/ Skin Integrity GI: WNL, Soft, Non-tender BM: 04/10 x1 I/O: 1440/Not Noted Skin: WNL, Intact Suresh: 21 Diet Order: Regular Estimated Energy Needs: ( Geriatric, ABW) 0421-5790 kcals (25-30 kcals/ kg) 50-60g Pro (1.0-1.2 g/kg) 6237-5726 ml (25-30 ml/kg) Current Diet Order/ Nutrition Support Regular Pertinent Medications Maalox (PRN), Colace, MOM (PRN ), Theragran Pertinent Labs 04/04: G 111, GFR 84, Tags 231, Chol 247, HDL 50, LDL 130 Nutritional Hx/Data Height 1.47 m Height (Calculated Centimeters) 147.3 Current Weight (lbs) 62.142 kg Weight (Calculated Kilograms) 62.1 Weight (Calculated Grams) 18794.2 [place] Body Weight 96 % [place] Body Weight 143 Body Mass Index (BMI) 28.6 Weight Status Overweight GI Symptoms Last BM 04/10 x1 Skin Integrity/Comment: Skin: WNL, Intact Suresh: 21 Current %PO Good (75-100%) Estimated Nutritional Goals BEE in Kcals: Adj wt of IBW Calories/Kcals/Kg 25-30 Kcals Calculated 4828-2306 Protein: Adj wt of IBW Protein g/k.0-1.2 Protein Calculated 50-60 Fluid: ml 5881-1339 ml (25-30 ml/kg) Nutritional Problem 1. Problem Problem Altered nutrition related labs Etiology r/t pathophysiological causes Signs/Symptoms: aeb labs (04/04) Tags 231, Chol 247, HDL 50, LDL 130. Intervention/Recommendation Recommendations by RD Decrease Calorie Intake Comments Recommend modification to Diet Rx to Cardiac d/t labs (04/04) Tags 231, Chol 247, HDL 50, LDL 130 and BMI 28.65 ( overweight). Expected Outcomes/Goals Expected Outcomes/Goals 1.Recommend modification to Diet Rx to Cardiac d/t labs () Tags 231, Chol 247, HDL 50, LDL 130 and BMI 28.65 ( overweight). 2.PO intake to continue to meet >75% of estimated nutritional needs. 3.Monitor PO intake, wt, nutrition related labs, and skin integrity. 4.F/U as low risk in 7-10 days , 04/18-04/21
[2019-04-15] MEDS: Multivitamin Tab PO SCH (08:23)
[2019-04-15] MEDS: Polyvinyl Alcohol Ophth Soln 15 mL Bottle EACH EYE SCH ×2 (08:25→16:46)
--- NOTE | 2019-04-15 11:45 | Progress Notes ---
DATE: 04/15/2019 Case was discussed with staff of the patient, reviewed records. The patient continues to have poor insight, unable to make safe plan for self-care, intrusive, easily agitated, but in general, she is calmer. She is sleeping better, eating better. No side effects with the medication, no sedation, no nausea, no extrapyramidal symptoms. Ordered Depakote level. We will continue to work with the patient in group therapy, milieu therapy and adjust the medication as needed. JOB# [id number]
--- NOTE | 2019-04-15 21:39 | Internal Medicine Prog Note ---
Internal Medicine Subjective - Subjective Service Date: 04/15/19 Patient seen and examined:: without staff (SHE FEELS WELL) Patient is:: awake, verbal, ambulating, confused Per staff patient has:: no adverse event Internal Medicine Objective - Physical Exam Vitals and I&O: Vital Signs Temp 97.7 F 04/15/19 20:36 Pulse 85 04/15/19 20:36 Resp 20 04/15/19 20:36 BP 143/77 04/15/19 20:36 Pulse Ox 100 04/15/19 20:36 Intake & Output 04/15/19 04/15/19 04/16/19 06:59 18:59 06:59 Intake Total 240 240 Balance 240 240 Intake: Oral 240 240 Other: # Voids 1 3 2 # Bowel Movements 1 0 Active Medications: Current Medications Acetaminophen (Tylenol) 650 mg PO Q4HR PRN PRN Reason: Mild pain (scale 1-3) Stop: 06/04/19 00:38 Al Hydrox/Mg Hydrox/Simethicone (Maalox) 30 ml PO Q4HR PRN PRN Reason: GI DISTRESS Stop: 06/04/19 00:33 Artificial Tears (Artificial Tears Ophth Soln) 1 drop EACH EYE BID [facility] Stop: 06/04/19 08:59 Last Admin: 04/15/19 16:46 Dose: 1 drop Divalproex Sodium (Depakote Dr) 250 mg PO Q8HR [facility]; Protocol Stop: 06/12/19 12:59 Last Admin: 04/15/19 20:20 Dose: 250 mg Docusate Sodium (Colace) 100 mg PO BID [facility] Stop: 06/04/19 08:59 Last Admin: 04/15/19 16:45 Dose: 100 mg Lorazepam (Ativan) 0.5 mg PO Q4HR PRN; Protocol PRN Reason: Anxiety Stop: 05/05/19 00:33 Magnesium Hydroxide (Milk Of Magnesia) 30 ml PO HS PRN PRN Reason: Constipation Multivitamins/Vitamin C (Theragran) 1 tab PO DAILY [facility] Stop: 06/04/19 08:59 Last Admin: 04/15/19 08:23 Dose: 1 tab Olanzapine (Zyprexa) 10 mg PO BID [facility]; Protocol Stop: 06/10/19 16:59 Last Admin: 04/15/19 16:45 Dose: 10 mg Zolpidem Tartrate (Ambien) 5 mg PO HS PRN PRN Reason: Insomnia Stop: 06/04/19 00:33 Last Admin: 04/15/19 20:20 Dose: 5 mg General: demented HEENT: NC/AT, PERRLA, EOMI, anicteric sclerae, throat clear Neck: Supple, No JVD, No thyromegaly, +2 carotid pulse wo bruit, No LAD Lungs: CTAB Cardiovascular: RRR, Normal S1, Normal S2, without murmur Abdomen: soft, non-tender, non-distended Extremities: clear Neurological: no change Internal Medicine Assmt/Plan - Assessment Assessment: 1.BLADDER DYSFUNCTION. 2.CONSTIPATION. 3.DEMENTIA. 4.PSYCHOSIS - Plan Plan: CONTINUE ON CURRENT MEDICATION AND DIET Nutritional Asmnt/Malnutr-PDOC - Dietary Evaluation Malnutrition Findings (Please click <Entered> for more info): Nutritional Asmnt/Malnutrition Start: 04/11/19 11: 22 Text: Status: Complete Freq: Protocol: Document 04/11/19 11:22 RHINA (Rec: 04/11/19 11:33 RHINA [email or web address]) Nutritional Asmnt/Malnutrition Patient General Information Nutritional Screening Low Risk Diagnosis Psychosis Pertinent Medical Hx/Surgical Hx Paranoid Schizophrenia, Bipolar Disorder, DJD, GERD, Bladder Dysfunction Subjective Information Pt is a 63-year-old female admitted on 04/04 d/t psychosis . Pt is eating an estimated 96 % of meals x4 days Per Meal/ Nutrition Activity Record. Dietary is currently providing an estimated 2100 kcals and 90 gm Pro, per Pt PO intake this is providing an estimated 2000 kcals and 86gm Pro to meet 100+% kcal and 100+% Pro needs. Recommend modification to Diet Rx to Cardiac d/t labs (04/04) Tags 231, Chol 247, HDL 50, LDL 130 and BMI 28.65 ( overweight). Spoke with nurse Mcdowell pertaining to diet recommendation. Anthropometrics HT: 410 WT: 137 LB (62.27 kg) ABW: 106 LB (48.29) BMI: 28.65 (Overweight) GI/ Skin Integrity GI: WNL, Soft, Non-tender BM: 04/10 x1 I/O: 1440/Not Noted Skin: WNL, Intact Suresh: 21 Diet Order: Regular Estimated Energy Needs: ( Geriatric, ABW) 7859-5045 kcals (25-30 kcals/ kg) 50-60g Pro (1.0-1.2 g/kg) 4699-8061 ml (25-30 ml/kg) Current Diet Order/ Nutrition Support Regular Pertinent Medications Maalox (PRN), Colace, MOM (PRN ), Theragran Pertinent Labs 04/04: G 111, GFR 84, Tags 231, Chol 247, HDL 50, LDL 130 Nutritional Hx/Data Height 1.47 m Height (Calculated Centimeters) 147.3 Current Weight (lbs) 62.142 kg Weight (Calculated Kilograms) 62.1 Weight (Calculated Grams) 68741.2 [place] Body Weight 96 % [place] Body Weight 143 Body Mass Index (BMI) 28.6 Weight Status Overweight GI Symptoms Last BM 04/10 x1 Skin Integrity/Comment: Skin: WNL, Intact Suresh: 21 Current %PO Good (75-100%) Estimated Nutritional Goals BEE in Kcals: Adj wt of IBW Calories/Kcals/Kg 25-30 Kcals Calculated 8516-8431 Protein: Adj wt of IBW Protein g/k.0-1.2 Protein Calculated 50-60 Fluid: ml 3162-1053 ml (25-30 ml/kg) Nutritional Problem 1. Problem Problem Altered nutrition related labs Etiology r/t pathophysiological causes Signs/Symptoms: aeb labs (04/04) Tags 231, Chol 247, HDL 50, LDL 130. Intervention/Recommendation Recommendations by RD Decrease Calorie Intake Comments Recommend modification to Diet Rx to Cardiac d/t labs (04/04) Tags 231, Chol 247, HDL 50, LDL 130 and BMI 28.65 ( overweight). Expected Outcomes/Goals Expected Outcomes/Goals 1.Recommend modification to Diet Rx to Cardiac d/t labs () Tags 231, Chol 247, HDL 50, LDL 130 and BMI 28.65 ( overweight). 2.PO intake to continue to meet >75% of estimated nutritional needs. 3.Monitor PO intake, wt, nutrition related labs, and skin integrity. 4.F/U as low risk in 7-10 days , 04/18-04/21
[2019-04-16] MEDS: Polyvinyl Alcohol Ophth Soln 15 mL Bottle EACH EYE SCH ×2 (08:20→16:30)
[2019-04-16] MEDS: Multivitamin Tab PO SCH (08:20)
--- NOTE | 2019-04-16 19:29 | Progress Notes ---
DATE: 04/16/2019 SUBJECTIVE: Case was discussed with staff of the patient, reviewed records. The patient continues to be intrusive, continues with redirection, unpredictable, impulsive, manicky at times. No side effects with the medication, no sedation, no nausea, no extrapyramidal symptoms. I did increase her Depakote to help improve her symptoms as well as Zyprexa and will continue outpatient group therapy, milieu therapy, and adjust the medications as needed. JOB# [id number]
--- NOTE | 2019-04-16 20:02 | Internal Medicine Prog Note ---
Internal Medicine Subjective - Subjective Service Date: 04/16/19 Patient seen and examined:: without staff (she is doing well) Patient is:: awake, verbal, ambulating, confused Per staff patient has:: no adverse event Internal Medicine Objective - Physical Exam Vitals and I&O: Vital Signs Temp 97.2 F 04/16/19 14:00 Pulse 78 04/16/19 14:00 Resp 18 04/16/19 19:53 BP 137/74 04/16/19 14:00 Pulse Ox 96 04/16/19 14:00 Intake & Output 04/16/19 04/16/19 04/17/19 06:59 18:59 06:59 Intake Total 400 1200 Balance 400 1200 Intake: Oral 400 1200 Other: # Voids 2 4 # Bowel Movements 1 1 Active Medications: Current Medications Acetaminophen (Tylenol) 650 mg PO Q4HR PRN PRN Reason: Mild pain (scale 1-3) Stop: 06/04/19 00:38 Last Admin: 04/16/19 04:09 Dose: 650 mg Al Hydrox/Mg Hydrox/Simethicone (Maalox) 30 ml PO Q4HR PRN PRN Reason: GI DISTRESS Stop: 06/04/19 00:33 Artificial Tears (Artificial Tears Ophth Soln) 1 drop EACH EYE BID [facility] Stop: 06/04/19 08:59 Last Admin: 04/16/19 16:30 Dose: 1 drop Divalproex Sodium (Depakote Dr) 250 mg PO Q8HR [facility]; Protocol Stop: 06/12/19 12:59 Last Admin: 04/16/19 12:26 Dose: 250 mg Docusate Sodium (Colace) 100 mg PO BID [facility] Stop: 06/04/19 08:59 Last Admin: 04/16/19 16:30 Dose: 100 mg Lorazepam (Ativan) 0.5 mg PO Q4HR PRN; Protocol PRN Reason: Anxiety Stop: 05/05/19 00:33 Last Admin: 04/16/19 08:20 Dose: 0.5 mg Magnesium Hydroxide (Milk Of Magnesia) 30 ml PO HS PRN PRN Reason: Constipation Multivitamins/Vitamin C (Theragran) 1 tab PO DAILY [facility] Stop: 06/04/19 08:59 Last Admin: 04/16/19 08:20 Dose: 1 tab Olanzapine (Zyprexa) 10 mg PO BID [facility]; Protocol Stop: 06/10/19 16:59 Last Admin: 04/16/19 16:29 Dose: 10 mg Zolpidem Tartrate (Ambien) 5 mg PO HS PRN PRN Reason: Insomnia Stop: 06/04/19 00:33 Last Admin: 04/15/19 20:20 Dose: 5 mg General: demented HEENT: NC/AT, PERRLA, EOMI, anicteric sclerae, throat clear Neck: Supple, No JVD, No thyromegaly, +2 carotid pulse wo bruit, No LAD Lungs: CTAB Cardiovascular: RRR, Normal S1, Normal S2, without murmur Abdomen: soft, non-tender, non-distended Extremities: clear Neurological: no change Internal Medicine Assmt/Plan - Assessment Assessment: 1.BLADDER DYSFUNCTION. 2.CONSTIPATION. 3.DEMENTIA. 4.PSYCHOSIS - Plan Plan: CONTINUE ON CURRENT MEDICATION AND DIET Nutritional Asmnt/Malnutr-PDOC - Dietary Evaluation Malnutrition Findings (Please click <Entered> for more info): Nutritional Asmnt/Malnutrition Start: 04/11/19 11: 22 Text: Status: Complete Freq: Protocol: Document 04/11/19 11:22 RHINA (Rec: 04/11/19 11:33 RHINA [email or web address]) Nutritional Asmnt/Malnutrition Patient General Information Nutritional Screening Low Risk Diagnosis Psychosis Pertinent Medical Hx/Surgical Hx Paranoid Schizophrenia, Bipolar Disorder, DJD, GERD, Bladder Dysfunction Subjective Information Pt is a 63-year-old female admitted on 04/04 d/t psychosis . Pt is eating an estimated 96 % of meals x4 days Per Meal/ Nutrition Activity Record. Dietary is currently providing an estimated 2100 kcals and 90 gm Pro, per Pt PO intake this is providing an estimated 2000 kcals and 86gm Pro to meet 100+% kcal and 100+% Pro needs. Recommend modification to Diet Rx to Cardiac d/t labs (04/04) Tags 231, Chol 247, HDL 50, LDL 130 and BMI 28.65 ( overweight). Spoke with nurse Mcdowell pertaining to diet recommendation. Anthropometrics HT: 410 WT: 137 LB (62.27 kg) ABW: 106 LB (48.29) BMI: 28.65 (Overweight) GI/ Skin Integrity GI: WNL, Soft, Non-tender BM: 04/10 x1 I/O: 1440/Not Noted Skin: WNL, Intact Suresh: 21 Diet Order: Regular Estimated Energy Needs: ( Geriatric, ABW) 0721-4230 kcals (25-30 kcals/ kg) 50-60g Pro (1.0-1.2 g/kg) 3516-6199 ml (25-30 ml/kg) Current Diet Order/ Nutrition Support Regular Pertinent Medications Maalox (PRN), Colace, MOM (PRN ), Theragran Pertinent Labs 04/04: G 111, GFR 84, Tags 231, Chol 247, HDL 50, LDL 130 Nutritional Hx/Data Height 1.47 m Height (Calculated Centimeters) 147.3 Current Weight (lbs) 62.142 kg Weight (Calculated Kilograms) 62.1 Weight (Calculated Grams) 49162.2 [place] Body Weight 96 % [place] Body Weight 143 Body Mass Index (BMI) 28.6 Weight Status Overweight GI Symptoms Last BM 04/10 x1 Skin Integrity/Comment: Skin: WNL, Intact Suresh: 21 Current %PO Good (75-100%) Estimated Nutritional Goals BEE in Kcals: Adj wt of IBW Calories/Kcals/Kg 25-30 Kcals Calculated 7723-2298 Protein: Adj wt of IBW Protein g/k.0-1.2 Protein Calculated 50-60 Fluid: ml 7534-2773 ml (25-30 ml/kg) Nutritional Problem 1. Problem Problem Altered nutrition related labs Etiology r/t pathophysiological causes Signs/Symptoms: aeb labs (04/04) Tags 231, Chol 247, HDL 50, LDL 130. Intervention/Recommendation Recommendations by RD Decrease Calorie Intake Comments Recommend modification to Diet Rx to Cardiac d/t labs (04/04) Tags 231, Chol 247, HDL 50, LDL 130 and BMI 28.65 ( overweight). Expected Outcomes/Goals Expected Outcomes/Goals 1.Recommend modification to Diet Rx to Cardiac d/t labs () Tags 231, Chol 247, HDL 50, LDL 130 and BMI 28.65 ( overweight). 2.PO intake to continue to meet >75% of estimated nutritional needs. 3.Monitor PO intake, wt, nutrition related labs, and skin integrity. 4.F/U as low risk in 7-10 days , 04/18-04/21
[2019-04-17] MEDS: Multivitamin Tab PO SCH (08:54)
[2019-04-17] MEDS: Polyvinyl Alcohol Ophth Soln 15 mL Bottle EACH EYE SCH ×2 (08:54→16:52)
--- NOTE | 2019-04-17 20:18 | Progress Notes ---
DATE: 04/17/2019 SUBJECTIVE: Case was discussed with staff of these patient, reviewed records. The patient continues to be intrusive, continues to have poor insight, continues to be unpredictable, impulsive. Her Depakote level was low at 17, now we increasing the dose to 500 mg twice a day. No side effects with the medication, no sedation, no nausea, no extrapyramidal symptoms. We will continue outpatient group therapy, milieu therapy, and adjust medication as needed. JOB# [id number]
--- NOTE | 2019-04-17 21:11 | Internal Medicine Prog Note ---
Internal Medicine Subjective - Subjective Service Date: 04/17/19 Patient seen and examined:: without staff (SHE FEELS WELL) Patient is:: awake, verbal, ambulating, confused Per staff patient has:: no adverse event Internal Medicine Objective - Physical Exam Vitals and I&O: Vital Signs Temp 97.4 F 04/17/19 20:00 Pulse 70 04/17/19 20:00 Resp 18 04/17/19 20:00 BP 114/66 04/17/19 20:00 Pulse Ox 95 04/17/19 20:00 Intake & Output 04/17/19 04/17/19 04/18/19 06:59 18:59 06:59 Intake Total 240 1200 Balance 240 1200 Intake: Oral 240 1200 Other: # Voids 1 4 # Bowel Movements 1 Active Medications: Current Medications Acetaminophen (Tylenol) 650 mg PO Q4HR PRN PRN Reason: Mild pain (scale 1-3) Stop: 06/04/19 00:38 Last Admin: 04/17/19 05:05 Dose: 650 mg Al Hydrox/Mg Hydrox/Simethicone (Maalox) 30 ml PO Q4HR PRN PRN Reason: GI DISTRESS Stop: 06/04/19 00:33 Artificial Tears (Artificial Tears Ophth Soln) 1 drop EACH EYE BID [facility] Stop: 06/04/19 08:59 Last Admin: 04/17/19 16:52 Dose: 1 drop Divalproex Sodium (Depakote Dr) 500 mg PO BID [facility]; Protocol Stop: 06/16/19 16:59 Last Admin: 04/17/19 16:53 Dose: 500 mg Docusate Sodium (Colace) 100 mg PO BID [facility] Stop: 06/04/19 08:59 Last Admin: 04/17/19 16:52 Dose: 100 mg Lorazepam (Ativan) 0.5 mg PO Q4HR PRN; Protocol PRN Reason: Anxiety Stop: 05/05/19 00:33 Last Admin: 04/16/19 08:20 Dose: 0.5 mg Magnesium Hydroxide (Milk Of Magnesia) 30 ml PO HS PRN PRN Reason: Constipation Multivitamins/Vitamin C (Theragran) 1 tab PO DAILY [facility] Stop: 06/04/19 08:59 Last Admin: 04/17/19 08:54 Dose: 1 tab Olanzapine (Zyprexa) 10 mg PO BID [facility]; Protocol Stop: 06/10/19 16:59 Last Admin: 04/17/19 16:52 Dose: 10 mg Zolpidem Tartrate (Ambien) 5 mg PO HS PRN PRN Reason: Insomnia Stop: 06/04/19 00:33 Last Admin: 04/17/19 20:38 Dose: 5 mg General: demented HEENT: NC/AT, PERRLA, EOMI, anicteric sclerae, throat clear Neck: Supple, No JVD, No thyromegaly, +2 carotid pulse wo bruit, No LAD Lungs: CTAB Cardiovascular: RRR, Normal S1, Normal S2, without murmur Abdomen: soft, non-tender, non-distended Extremities: clear Neurological: no change Internal Medicine Assmt/Plan - Assessment Assessment: 1.BLADDER DYSFUNCTION. 2.CONSTIPATION. 3.DEMENTIA. 4.PSYCHOSIS - Plan Plan: CONTINUE ON CURRENT MEDICATION AND DIET Nutritional Asmnt/Malnutr-PDOC - Dietary Evaluation Malnutrition Findings (Please click <Entered> for more info): Nutritional Asmnt/Malnutrition Start: 04/11/19 11: 22 Text: Status: Complete Freq: Protocol: Document 04/11/19 11:22 RHINA (Rec: 04/11/19 11:33 [facility] [email or web address]) Nutritional Asmnt/Malnutrition Patient General Information Nutritional Screening Low Risk Diagnosis Psychosis Pertinent Medical Hx/Surgical Hx Paranoid Schizophrenia, Bipolar Disorder, DJD, GERD, Bladder Dysfunction Subjective Information Pt is a 63-year-old female admitted on 04/04 d/t psychosis . Pt is eating an estimated 96 % of meals x4 days Per Meal/ Nutrition Activity Record. Dietary is currently providing an estimated 2100 kcals and 90 gm Pro, per Pt PO intake this is providing an estimated 2000 kcals and 86gm Pro to meet 100+% kcal and 100+% Pro needs. Recommend modification to Diet Rx to Cardiac d/t labs (04/04) Tags 231, Chol 247, HDL 50, LDL 130 and BMI 28.65 ( overweight). Spoke with nurse Mcdowell pertaining to diet recommendation. Anthropometrics HT: 410 WT: 137 LB (62.27 kg) ABW: 106 LB (48.29) BMI: 28.65 (Overweight) GI/ Skin Integrity GI: WNL, Soft, Non-tender BM: 04/10 x1 I/O: 1440/Not Noted Skin: WNL, Intact Suresh: 21 Diet Order: Regular Estimated Energy Needs: ( Geriatric, ABW) 9289-1100 kcals (25-30 kcals/ kg) 50-60g Pro (1.0-1.2 g/kg) 3159-7811 ml (25-30 ml/kg) Current Diet Order/ Nutrition Support Regular Pertinent Medications Maalox (PRN), Colace, MOM (PRN ), Theragran Pertinent Labs 04/04: G 111, GFR 84, Tags 231, Chol 247, HDL 50, LDL 130 Nutritional Hx/Data Height 1.47 m Height (Calculated Centimeters) 147.3 Current Weight (lbs) 62.142 kg Weight (Calculated Kilograms) 62.1 Weight (Calculated Grams) 63016.2 [place] Body Weight 96 % [place] Body Weight 143 Body Mass Index (BMI) 28.6 Weight Status Overweight GI Symptoms Last BM 04/10 x1 Skin Integrity/Comment: Skin: WNL, Intact Suresh: 21 Current %PO Good (75-100%) Estimated Nutritional Goals BEE in Kcals: Adj wt of IBW Calories/Kcals/Kg 25-30 Kcals Calculated 8332-6615 Protein: Adj wt of IBW Protein g/k.0-1.2 Protein Calculated 50-60 Fluid: ml 4123-5107 ml (25-30 ml/kg) Nutritional Problem 1. Problem Problem Altered nutrition related labs Etiology r/t pathophysiological causes Signs/Symptoms: aeb labs (04/04) Tags 231, Chol 247, HDL 50, LDL 130. Intervention/Recommendation Recommendations by RD Decrease Calorie Intake Comments Recommend modification to Diet Rx to Cardiac d/t labs (04/04) Tags 231, Chol 247, HDL 50, LDL 130 and BMI 28.65 ( overweight). Expected Outcomes/Goals Expected Outcomes/Goals 1.Recommend modification to Diet Rx to Cardiac d/t labs () Tags 231, Chol 247, HDL 50, LDL 130 and BMI 28.65 ( overweight). 2.PO intake to continue to meet >75% of estimated nutritional needs. 3.Monitor PO intake, wt, nutrition related labs, and skin integrity. 4.F/U as low risk in 7-10 days , 04/18-04/21
[2019-04-18] MEDS: Multivitamin Tab PO SCH (08:38)
[2019-04-18] MEDS: Polyvinyl Alcohol Ophth Soln 15 mL Bottle EACH EYE SCH ×2 (09:05→16:53)
--- NOTE | 2019-04-18 13:27 | Discharge Summary ---
DATE OF DISCHARGE: 04/18/2019 IDENTIFYING INFORMATION: The patient is a 63-year-old female. HISTORY OF PRESENT ILLNESS: The patient was referred from [place]. The patient has been agitated, admitted from [place] striking out behavior. The patient with a history of paranoid schizophrenia, bipolar disorder, anxiety, psychosis, unable to participate in meaningful conversation, will not answer questions. She was in bed, acting suspicious. She is a well-known case, I have been seeing her for a while at [place] with multiple prior hospitalizations. COURSE IN THE HOSPITAL: The patient started back on her medication. She was continued with Depakote increased dose 500 mg twice a day. Also, continue with olanzapine increased dose 10 mg twice a day. The patient will continue with multivitamin and other p.r.n. medications. She was improved, she was no longer acting psychotic. She is sleeping well, eating well. She was responding well to redirection. No longer paranoid thoughts. She could be discharged to a lesser level of care. FINAL DIAGNOSES: Bipolar disorder with psychosis. MEDICAL DIAGNOSES: Per medical doctor. She will follow up at [place]. I will see her there with her primary care physician. EXPECTED OUTCOMES: Stable, if the patient complies with the above. [facility]# [id number] [place]
== END 2019-04-18 17:45 | DRG 885 ==
LOC: GERO 23:36
PROVIDERS: ADMIT Psychiatry & Neurology Psychiatry; ATTEND Psychiatry & Neurology Psychiatry
DX: F31.9 Bipolar disorder, unspecified (principal); F03.90 Unspecified dementia, unspecified severity, without behavioral disturbance, psychotic disturbance, mood disturbance, and anxiety; F29 Unspecified psychosis not due to a substance or known physiological condition; K59.00 Constipation, unspecified; N31.9 Neuromuscular dysfunction of bladder, unspecified; F20.0 Paranoid schizophrenia; K21.9 Gastro-esophageal reflux disease without esophagitis; Z88.8 Allergy status to other drugs, medicaments and biological substances
CPT/HCPCS: 83036-90; 90899; G0410; J7051; Z7610